=== PATIENT | female | born 1960 | race Hispanic/Latino ===

== ENCOUNTER 2020-03-04 18:33 | Emergency (ER) | payer MEDICAID, MEDICARE ==
[~2020-03-04] VITALS: Ht 165.1 cm; Wt 62.3 kg
[2020-03-04 19:25] LABS: BASO # 0.1 10^3/uL (0.0-0.2); BASO % 0.5 % (0.0-1.0); EOS # 0.1 10^3/uL (0.0-0.5); EOS % 0.8 % (0.0-3.0); HEMOGLOBIN 14.9 g/dl (12.0-15.5); LYMPH # 2.1 10^3/uL (1.5-5.0); LYMPH % 15.9 % (24.0-44.0); MEAN CORPUSCULAR HEMOGLOBIN 31.8 pg (27.0-33.0); MEAN CORPUSCULAR HGB CONC 33.9 g/dl (32.0-36.5); MONO # 0.7 10^3/uL (0.0-0.8); MONO % 5.5 % (0.0-5.0); NEUTROPHILS # 10.1 10^3/uL (1.5-8.5); NEUTROPHILS % 76.8 % (36.0-66.0); PLATELET COUNT, AUTOMATED 203 10^3/uL (150-450); RED BLOOD COUNT 4.68 10^6/uL (4.00-5.40); WHITE BLOOD COUNT 13.2 10^3/uL (4.0-10.0)
[2020-03-04] MEDS ORDERED: ONDANSETRON 4MG/2ML VIAL IV ONE (19:30)
[2020-03-04] MEDS ORDERED: NS 1,000 ML IV ONE (19:30)
[2020-03-04 19:37] LABS: INR 0.92; PROTHROMBIN TIME 12.5 SECONDS (11.8-14.0)
[2020-03-04] MEDS: MORPHINE 4 MG/ML 1ML VIAL/SYRINGE (J2270) IV PRN ×2 (19:40→21:38)
[2020-03-04 19:51] LABS: ALBUMIN 4.3 GM/DL (3.2-5.2); ALT/SGPT 26 U/L (12-78); BILIRUBIN,DIRECT 0.1 MG/DL (0.0-0.2); BILIRUBIN,TOTAL 0.5 MG/DL (0.2-1.0); BLOOD UREA NITROGEN 37 MG/DL (7-18); CARBON DIOXIDE LEVEL 29 MEQ/L (21-32); CHLORIDE LEVEL 103 MEQ/L (98-107); CK-MB VALUE MASS 3.8 NG/ML (<3.6); CPK CREATINE PHOSPHOKINASE 344 U/L (26-192); CREATININE FOR GFR 1.31 MG/DL (0.55-1.30); GLOMERULAR FILTRATION RATE 43.9 (>45); GLUCOSE, FASTING 110 MG/DL (70-100); LIPASE 113 U/L (73-393); POTASSIUM SERUM 3.1 MEQ/L (3.5-5.1); SODIUM LEVEL 136 MEQ/L (136-145); TOTAL PROTEIN 9.6 GM/DL (6.4-8.2); TROPONIN I < 0.02 NG/ML (< 0.10)
[2020-03-04] MEDS ORDERED: PROAAER10 INH (20:20)
[2020-03-04] MEDS ORDERED: ATEN100T PO (20:20)
[2020-03-04] MEDS ORDERED: ISOVUE-370 76% 100ML VIAL As Ordered ONE (20:34)
--- NOTE | 2020-03-04 21:49 | REPVR ---
PROCEDURE INFORMATION: Exam: CT Angiography Chest With Contrast Exam date and time: 03/04/2020 8:59 PM Age: 59 years old Clinical indication: Chest pain; Type not specified; Additional info: Chest/epigastric pain TECHNIQUE: Imaging protocol: Computed tomographic angiography of the chest with intravenous contrast. 3D rendering (Not supervised by radiologist): MIP and/or 3D reconstructed images were created by the technologist. Radiation optimization: All CT scans at this facility use at least one of these dose optimization techniques: automated exposure control; mA and/or kV adjustment per patient size (includes targeted exams where dose is matched to clinical indication); or iterative reconstruction. Contrast material: ISOVUE 370; Contrast volume: 100 ml; Contrast route: INTRAVENOUS (IV); COMPARISON: No relevant prior studies available. FINDINGS: Pulmonary arteries: The main pulmonary artery measures 24 mm. No pulmonary embolism is identified. Aorta: The ascending thoracic aorta measures 31 mm. Lungs: Multiple bilateral pulmonary nodules with some central cavitation in several. Slight interstitial prominence with minimal bilateral lower lobe atelectasis, left greater than right and question of minimal infiltrates. Pleural space: Minimal left pleural effusion. Heart: Unremarkable. No cardiomegaly. No pericardial effusion. Mediastinal space: Status post right mastectomy with infiltration stranding in the right hilum which may reflect prior zoran dissection. Lymph nodes: Unremarkable. No enlarged lymph nodes. Gallbladder and bile ducts: There are multiple small gallstones in the gallbladder. Bones/joints: Unremarkable. No acute fracture. Soft tissues: Unremarkable. IMPRESSION: 1. 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 2. Multiple bilateral pulmonary nodules, some demonstrating central cavitation which are most suspicious for metastatic disease. And inflammatory origin is thought to be less likely. Fleischner follow up recommendations for incidental nodules are not indicated. Follow up per patient's medical condition. 3. Minimal left pleural effusion with minimal bilateral lower lobe atelectasis and question of minimal infiltrates. 4. Cholelithiasis. 5. No pulmonary embolism is identified. Electronically signed by: Jordin Harp On 03/04/2020 21:49:26 PM
--- NOTE | 2020-03-04 21:58 | REPVR ---
PROCEDURE INFORMATION: Exam: CT Abdomen And Pelvis With Contrast Exam date and time: 03/04/2020 8:59 PM Age: 59 years old Clinical indication: Abdominal pain; Epigastric; Additional info: Chest/epigastric pain TECHNIQUE: Imaging protocol: Computed tomography of the abdomen and pelvis with intravenous contrast. Radiation optimization: All CT scans at this facility use at least one of these dose optimization techniques: automated exposure control; mA and/or kV adjustment per patient size (includes targeted exams where dose is matched to clinical indication); or iterative reconstruction. Contrast material: ISOVUE 370; Contrast volume: 100 ml; Contrast route: INTRAVENOUS (IV); COMPARISON: No relevant prior studies available. FINDINGS: Lungs: Multiple bibasilar pulmonary nodules with several demonstrating central cavitation. Minimal bilateral lower lobe atelectasis and question of minimal infiltrates. Pleural space: Minimal left pleural effusion. Liver: Heterogeneous liver with suggestion of multiple focal enhancing lesions which are suspicious for metastatic disease. Gallbladder and bile ducts: Small gallstones in the gallbladder. Pancreas: Normal. No ductal dilation. Spleen: Normal. No splenomegaly. Adrenals: Normal. No mass. Kidneys and ureters: Normal. No hydronephrosis. Stomach and bowel: Question of gastric antral wall thickening which may be related to incomplete distention. Minimal sigmoid diverticulosis without diverticulitis. Appendix: A normal appendix is seen. Intraperitoneal space: Unremarkable. No free air. No significant fluid collection. Vasculature: Unremarkable. No abdominal aortic aneurysm. Lymph nodes: Unremarkable. No enlarged lymph nodes. Bladder: Unremarkable as visualized. Reproductive: Multiple uterine calcifications consistent with fibroids. Bones/joints: Mottled sclerosis with areas of lucency involving the L4 and to a lesser degree L3 and possibly S1 segments which may reflect osteoblastic metastasis. There is some mottled lucency at the base of the spinous process of L4. Schmorl's defect adjacent to the inferior endplate of T12 although early metastasis is not excluded. Soft tissues: Unremarkable. IMPRESSION: 1. Multiple bibasilar pulmonary nodules with several demonstrating central cavitation which are suspicious for metastatic disease. Fleischner follow up recommendations for incidental nodules are not indicated. Follow up per patient's medical condition. 2. Heterogeneous enhancement of the liver with suggestion of multiple focal lesions which are suspicious for metastatic disease. 3. Cholelithiasis. 4. Evidence of metastatic disease involving the L4 segment including posterior elements. There is question of early involvement of L3 and possibly T12 and S1. 5. Question of antral gastritis. 6. Minimal sigmoid diverticulosis without diverticulitis. Electronically signed by: Jordin Harp On 03/04/2020 21:59:01 PM
[2020-03-04] MEDS ORDERED: atenoloL 50 MG TAB As Ordered ONE (22:40)
[2020-03-04 22:44] VITALS: BP 179/104
[2020-03-04] MEDS ORDERED: atenoloL 50 MG TAB PO ONE (22:45)
[2020-03-04] MEDS ORDERED: PANTOPRAZOLE 40MG VIAL (C9113 PER 1) IV ONE (23:15)
[2020-03-04] MEDS ORDERED: OXYCODONE/APAP 5MG/325MG(BULK FOR ED) 1 TABLET PO ONE (23:15)
[2020-03-04 23:35] VITALS: BP 164/88
[2020-03-12] MEDS ORDERED: PANT40TA29 PO (09:37)
[2020-03-12] MEDS ORDERED: TRIU1TAB PO (09:37)
[2020-03-26] MEDS ORDERED: TIZA4TAB4 PO (09:18)
--- NOTE | 2020-03-31 09:34 | ECGEPIP ---
[facility] - ED Test Date: 2020-03-04 Pat Name: JUNE GATES Department: Room: - Gender: Female [employer]: aram : 1960 Requested By: JOSE Christian Order Number: [id number] Reading MD: Rosa Fry Measurements Intervals Heath Rate: 65 P: 55 VT: 188 QRS: 19 QRSD: 93 T: 52 QT: 446 QTc: 465 Interpretive Statements SINUS RHYTHM WITH SINUS ARRHYTHMIA LEFT ATRIAL ENLARGEMENT POSSIBLE LEFT VENTRICULAR HYPERTROPHY POSSIBLE SEPTAL MYOCARDIAL INFARCTION, OF INDETERMINATE AGE ABNORMAL ECG SEE DOWNTIME SCANNED RECORD
[2020-04-16] MEDS ORDERED: LETR2.5T2 PO (15:39)
== END 2020-03-04 23:36 | disposition home or self-care (01) ==
LOC: M ED 18:33
DX: K29.70 Gastritis, unspecified, without bleeding (principal); C79.51 Secondary malignant neoplasm of bone; R91.1 Solitary pulmonary nodule; K76.9 Liver disease, unspecified; K57.32 Diverticulitis of large intestine without perforation or abscess without bleeding; I10 Essential (primary) hypertension; B20 Human immunodeficiency virus [HIV] disease; Z86.19 Personal history of other infectious and parasitic diseases
CPT/HCPCS: 71275; 74177; 80048; 80076; 82550; 82553; 83605; 83690; 84484; 85025; 85610; 93005; 93041; 94760; 96361; 96374; 96375; 96376; 99284; C9113; J2270; J2405; Q9967

== ENCOUNTER → 2020-03-23 | Outpatient (CLI) | payer MEDICAID ==
[~2020-03-23] MED LIST: ATEN100T PO; LETR2.5T2 PO; PANT40TA29 PO; PROAAER10 INH; TIZA4TAB4 PO; TRIU1TAB PO
--- NOTE | 2020-04-14 09:47 | REP ---
LIMITED ABDOMINAL ULTRASOUND CLINICAL: Possible hepatic lesions for biopsy. COMPARISON: CT dated 03/04/2020. TECHNIQUE: Real-time eugene scale ultrasound examination using high frequency transducer. FINDINGS: Ultrasound examination demonstrates coarsened diffusely heterogeneous hepatic echotexture without discernable lesion by ultrasound. Biopsy could not be performed of any discrete lesion. IMPRESSION: Liver demonstrates diffusely coarsened echotexture suggesting underlying hepatocellular disease. No obvious focal hepatic lesion for biopsy identified. Biopsy not performed. MTDD
== END ==
LOC: M IRPRO 09:36
PROVIDERS: ATTEND Specialist
DX: K76.9 Liver disease, unspecified (principal); Z53.8 Procedure and treatment not carried out for other reasons

== ENCOUNTER → 2020-03-26 | Outpatient (CLI) | payer MEDICAID ==
[~2020-03-26] MED LIST changes: +ACETAMINOPHEN 325 MG TAB As Ordered ONE; +LIDOCAINE 1% MDV 20ML VIAL As Ordered ONE
[2020-03-26 12:35] VITALS: BP 160/91
--- NOTE | 2020-04-16 08:33 | REP ---
CT GUIDED RIGHT LOWER LOBE LUNG BIOPSY The procedure was performed under the direct supervision of Dr. Crawford. The patient has a history of multiple bilateral pulmonary nodules seen on a previous CT scan dated 03/04/2020. A nodule in the right lower lobe was selected for biopsy. The risks and benefits of the procedure were explained to the patient and informed consent was obtained through an surgical instrument mechanic. The right lower lobe lung nodule was localized using CT guidance. The skin was prepped and draped in a sterile fashion. 1% Lidocaine was used as a local anesthetic. Using CT guidance, a 19-20 gauge co-axial needle biopsy system was inserted and advanced into the nodule. Five core biopsy samples were obtained and sent to the lab. The patient tolerated the procedure well and there were no immediate complications. After the appropriate amount of monitored convalescence, the patient was discharged from the department. ALINE
== END ==
LOC: M IRPRO 08:45
PROVIDERS: ATTEND Specialist
DX: C78.00 Secondary malignant neoplasm of unspecified lung (principal); R91.8 Other nonspecific abnormal finding of lung field; Z85.3 Personal history of malignant neoplasm of breast

== ENCOUNTER → 2020-04-09 | Outpatient (CLI) | payer MEDICAID ==
[~2020-04-09] MED LIST changes: -ACETAMINOPHEN 325 MG TAB As Ordered ONE; -LIDOCAINE 1% MDV 20ML VIAL As Ordered ONE
--- NOTE | 2020-04-12 07:11 | ECHO ---
DATE OF PROCEDURE: 04/09/2020 Age: 59 Gender: Female Height: 65 inches Weight: 142 pounds Body surface area: 1.71 m2 PATIENT LOCATION: Outpatient. REFERRING PHYSICIAN: Hernesto De La Vega MD INDICATION: Potentially cardiotoxic chemotherapy. MEASUREMENTS: 2D Measurements: RV 2.8 cm LV 4.0 cm Septum 1.1 cm Posterior wall 1.0 cm Aortic Root 2.8 cm LA 3.0 cm LVEF 65% Doppler Measurements: AV 1.52 m/s LVOT 0.96 m/s LVOT diameter 1.8 cm MV-E 52, A 104, E/A ratio 0.5 Early mitral deceleration time 320 m/s E prime medial 4.6, A prime medial 8, E prime lateral 5.3 Average E/E prime ratio 10.5/PCWP 14.9 mmHg PV 0.7 m/s Pulmonary artery acceleration time 128 m/s RVSP 30 mmHg IVC 1.6 cm COMMENTS: Normal sinus rhythm/sinus bradycardia without intraventricular conduction disturbance. M-mode and two-dimensional echocardiography was performed with pulsed, continuous wave, color flow, and tissue Doppler studies. Normal left ventricular size, wall thickness, and wall motion. Normal left atrial size with grade 1 left ventricular (LV) diastolic dysfunction, but currently normal estimated mean left atrial pressure. Normal right heart chamber sizes and motion with Doppler evidence of borderline pulmonary hypertension. Normal inferior vena cava (IVC) size and collapse against an elevated central venous pressure. Normal aortic dimensions. Moderate aortic valvular sclerosis without stenosis, but moderate insufficiency. Mild degenerative changes of the mitral valvular apparatus without inflow tract obstruction and only trace insufficiency. Normal appearing tricuspid valve with very mild insufficiency. No apparent intracardiac mass or pericardial effusion. MTDD
== END ==
LOC: M CARPUL 08:18
PROVIDERS: ATTEND Internal Medicine Hematology & Oncology
DX: C34.90 Malignant neoplasm of unspecified part of unspecified bronchus or lung (principal)

== ENCOUNTER 2020-06-06 19:08 | Emergency (ER) | payer MEDICAID ==
[~2020-06-06] VITALS: Ht 165.1 cm; Wt 63.3 kg
[2020-06-06] MEDS ORDERED: MORPHINE 4 MG/ML 1ML VIAL/SYRINGE (J2270) IV ONE (20:30)
[2020-06-06] MEDS ORDERED: ONDANSETRON 4MG/2ML VIAL IV ONE (20:30)
[2020-06-06 20:51] LABS: BASO % 0.3 % (0.0-1.0); EOS # 0.1 10^3/uL (0.0-0.5); EOS % 0.6 % (0.0-3.0); HEMATOCRIT 36.5 % (36.0-47.0); HEMOGLOBIN 12.1 g/dl (12.0-15.5); LYMPH # 2.3 10^3/uL (1.5-5.0); MEAN CORPUSCULAR HEMOGLOBIN 30.6 pg (27.0-33.0); MEAN CORPUSCULAR HGB CONC 33.2 g/dl (32.0-36.5); MEAN CORPUSCULAR VOLUME 92.4 fl (80.0-96.0); MONO # 1.3 10^3/uL (0.0-0.8); MONO % 11.5 % (0.0-5.0); NEUTROPHILS # 7.7 10^3/uL (1.5-8.5); NEUTROPHILS % 67.3 % (36.0-66.0); PLATELET COUNT, AUTOMATED 225 10^3/uL (150-450); RED BLOOD COUNT 3.95 10^6/uL (4.00-5.40); WHITE BLOOD COUNT 11.5 10^3/uL (4.0-10.0)
[2020-06-06 21:18] LABS: ALBUMIN 3.6 GM/DL (3.2-5.2); BILIRUBIN,DIRECT 0.2 MG/DL (0.0-0.2); BILIRUBIN,TOTAL 0.6 MG/DL (0.2-1.0); CREATININE FOR GFR 1.37 MG/DL (0.55-1.30); GLOMERULAR FILTRATION RATE 41.7 (>45); TOTAL PROTEIN 8.5 GM/DL (6.4-8.2)
--- NOTE | 2020-06-06 21:48 | REPVR ---
PROCEDURE INFORMATION: Exam: CT Head Without Contrast Exam date and time: 06/06/2020 9:15 PM Age: 59 years old Clinical indication: Pain; Headache; Additional info: AMS TECHNIQUE: Imaging protocol: Computed tomography of the head without contrast. Radiation optimization: All CT scans at this facility use at least one of these dose optimization techniques: automated exposure control; mA and/or kV adjustment per patient size (includes targeted exams where dose is matched to clinical indication); or iterative reconstruction. COMPARISON: No relevant prior studies available. FINDINGS: Brain: Small nodular density is noted in a a left anterior parietal sulcus (image 21, series 201). Generalized cerebral volume loss and changes of chronic white matter microvascular disease. No signs of a recent infarction. No mass effect or midline shift. Cerebral ventricles: No ventriculomegaly. Bones/joints: Unremarkable. No acute fracture. Paranasal sinuses: Visualized sinuses are unremarkable. No fluid levels. Mastoid air cells: Visualized mastoid air cells are well aerated. Soft tissues: Unremarkable. IMPRESSION: 1. Possible small subarachnoid hemorrhage versus sulcal calcification in the superior left parietal lobe. Short-term follow-up is recommended. 2. Atrophy and chronic white matter changes. Electronically signed by: Nolberto Caro On 06/06/2020 21:48:26 PM
--- NOTE | 2020-06-06 21:49 | REPVR ---
PROCEDURE INFORMATION: Exam: XR Right Hip with Pelvis when Performed Exam date and time: 06/06/2020 9:17 PM Age: 59 years old Clinical indication: Hip pain; Right hip; Additional info: R hip pain TECHNIQUE: Imaging protocol: XR Right hip with pelvis when performed. Views: 2 or 3 views. COMPARISON: CT ABD/PEL W/IV CONTRAST ONLY 03/04/2020 8:44 PM FINDINGS: Bones/joints: Degenerative changes in the lumbar spine and pelvis. Right greater than left degenerative joint space narrowing in the hips. No acute fracture or malalignment. Soft tissues: Unremarkable. IMPRESSION: 1. Right greater than left hip osteoarthritis. The degenerative changes in the spine and pelvis. 2. No fracture or malalignment. Electronically signed by: Nolberto Caro On 06/06/2020 21:50:02 PM
--- NOTE | 2020-06-06 21:51 | REPVR ---
PROCEDURE INFORMATION: Exam: XR Right Femur Exam date and time: 06/06/2020 9:17 PM Age: 59 years old Clinical indication: Pain; Thigh; Right TECHNIQUE: Imaging protocol: XR Right femur. Views: 2 views. COMPARISON: No relevant prior studies available. FINDINGS: Bones/joints: Joint spaces are normal. No fracture or malalignment. Soft tissues: Unremarkable. IMPRESSION: No fracture or malalignment. Electronically signed by: Nolberto Caro On 06/06/2020 21:51:24 PM
--- NOTE | 2020-06-06 21:52 | REPVR ---
PROCEDURE INFORMATION: Exam: XR Right Tibia and Fibula Exam date and time: 06/06/2020 9:17 PM Age: 59 years old Clinical indication: Pain; Lower leg; Right TECHNIQUE: Imaging protocol: XR Right tibia and fibula. Views: 2 views. COMPARISON: No relevant prior studies available. FINDINGS: Bones/joints: Joint spaces are normal. No fracture or malalignment. Soft tissues: Normal. IMPRESSION: No fracture or malalignment. Electronically signed by: Nolberto Caro On 06/06/2020 21:52:17 PM
--- NOTE | 2020-06-06 21:56 | REPVR ---
PROCEDURE INFORMATION: Exam: XR Lumbosacral Spine, 4 or 5 Views Exam date and time: 06/06/2020 9:17 PM Age: 59 years old Clinical indication: Low back pain TECHNIQUE: Imaging protocol: XR of the lumbosacral spine, 4 or 5 views. COMPARISON: CT ABD/PEL W/IV CONTRAST ONLY 03/04/2020 8:44 PM FINDINGS: Bones/joints: Advanced degenerative changes in the spine and pelvis. Mild osteoarthritis in the hips. Multilevel facet DJD. Generalized sclerosis in the L4 vertebral body and posterior elements and S1 appear similar to the prior abdominal CT. No new sclerotic or destructive bone lesions. There is cortical regularity along the anterior surface of the S1 sacral segment without a discrete fracture lucency. Small endplate Schmorl's nodes in the spine are noted. No other fracture or malalignment. Soft tissues: Unremarkable. IMPRESSION: 1. Stable appearance of metastatic disease at L4 and S1. 2. Possible fracture of the sacral S1 segment. No other fracture or malalignment. 3. Advanced degenerative changes as above. Electronically signed by: Nolberto Caro On 06/06/2020 21:56:18 PM
[2020-06-06] MEDS ORDERED: POTASSIUM CHLORIDE 10 MEQ SR TABLET PO ONE (22:30)
[2020-06-06] MEDS ORDERED: KCL 10MEQ/100ML SWI (KRUN) 10 MEQ in IV 1 EA IV ONE ×2 (22:30→22:45)
--- NOTE | 2020-06-06 22:47 | REPVR ---
PROCEDURE INFORMATION: Exam: CT Cervical Spine Without Contrast Exam date and time: 06/06/2020 10:31 PM Age: 59 years old Clinical indication: Pain; Cervicalgia; Additional info: Head injury TECHNIQUE: Imaging protocol: Computed tomography images of the cervical spine without contrast. Radiation optimization: All CT scans at this facility use at least one of these dose optimization techniques: automated exposure control; mA and/or kV adjustment per patient size (includes targeted exams where dose is matched to clinical indication); or iterative reconstruction. COMPARISON: No relevant prior studies available. FINDINGS: Bones/joints: Normal alignment. No acute fracture. Discs/Spinal canal/Neural foramina: Severe disc degeneration with large posterior disc bulges causing spinal stenosis at C5-C6 and C6-C7. Milder discogenic degenerative changes at other levels. Multilevel facet DJD with facet ankylosis in the upper cervical spine. Multilevel foraminal stenosis, worst at C5-C6 and C6-C7. Soft tissues: Unremarkable. Lungs: Lung apices are normal. IMPRESSION: 1. No fracture or malalignment. 2. Advanced degenerative spondylosis as above. Electronically signed by: Nolberto Caro On 06/06/2020 22:47:35 PM
[2020-06-06 23:32] VITALS: BP 147/84
== END 2020-06-06 23:34 | disposition short-term general hospital (02) ==
LOC: M ED 19:08
DX: S06.300A Unspecified focal traumatic brain injury without loss of consciousness, initial encounter (principal); C78.7 Secondary malignant neoplasm of liver and intrahepatic bile duct; C78.00 Secondary malignant neoplasm of unspecified lung; C79.51 Secondary malignant neoplasm of bone; W22.01XA Walked into wall, initial encounter; Y92.098 Other place in other non-institutional residence as the place of occurrence of the external cause; Y99.8 Other external cause status; M79.604 Pain in right leg; C50.919 Malignant neoplasm of unspecified site of unspecified female breast; I10 Essential (primary) hypertension; K21.9 Gastro-esophageal reflux disease without esophagitis; B19.20 Unspecified viral hepatitis C without hepatic coma; B20 Human immunodeficiency virus [HIV] disease; Z90.11 Acquired absence of right breast and nipple; Z87.891 Personal history of nicotine dependence
CPT/HCPCS: 70450; 72110; 72125; 73502; 73552; 73590; 80048; 80076; 81001; 83690; 85025; 87086; 96374; 96375; 99285; J2270; J2405

== ENCOUNTER → 2020-06-23 | Outpatient (CLI) | payer MEDICAID ==
[~2020-06-23] MED LIST changes: +HYDR50TAB; +LETR2.5T2; +LIDOCAIN; +LIDOCAINE 1% MDV 20ML VIAL As Ordered ONE; +MIDAZOLAM INJ 2MG/2ML VIAL (J2250 PER 1MG) As Ordered ONE; +PERC5TAB12 PO; +PROMETHAZINE INJ 25 MG/ML VIAL (J2550) As Ordered ONE; +ceFAZolin 1GM VIAL (J0690 PER 500MG) As Ordered ONE; +diphenhydrAMINE 50MG/ML VIAL (J1200) As Ordered ONE; +fentaNYL 100 MCG/2 ML INJECTION (J3010) As Ordered ONE
--- NOTE | 2020-06-23 12:12 | IRHP ---
[facility] IR Pre-Procedure H & P General Date of Service: Jun 23, 2020 Procedure: Same Day Surgery Interval History and Physical I have seen the patient and reviewed last H & P performed within 30 days. There is no significant interval change. History of Present Illness Chief Complaint The patient is a 59-year-old female admitted with a reason for visit of Breast Cancer. PRE-PROCEDURE DIAGNOSIS: right sided breast cancer HEART: normal rate. LUNGS: normal breathing at rest. ASA Classification ASA Classification: III-Severe systemic dis. Mallampati Score: II NPO: Yes Problems with prior sedation: No Obstructive Sleep Apnea: No Plan moderate sedation Allergies Coded Allergies: No Known Allergies (Unverified , 03/04/20) Home Medications Scheduled Abacavir/Dolutegravir/Lamivudi (Triumeq 600-50-300 mg Tablet), 1 TAB PO DAILY, (Reported) Atenolol (Atenolol), 100 MG PO BID, (Reported) Scheduled PRN Albuterol Sulfate (Proair Hfa), 2 PUFF INH QID PRN for SHORTNESS OF BREATH, (Reported) Tizanidine HCl (Tizanidine HCl), 4 MG PO TID PRN for MUSCLE SPASMS, (Reported) VELIA ALFORD MD Jun 23, 2020 12:12
[2020-06-23 15:15] VITALS: BP 159/90
--- NOTE | 2020-06-24 11:07 | POST-OPPD ---
Postoperative Procedure Note Date Of Procedure: Jun 23, 2020 Time Of Procedure: 16:00 IR ultrasound and fluoroscopy guided port placement IR Ultrasound of the neck. IR Moderate sedation. Clinical indication: Right-sided breast cancer. Physician: Dr. Sierra. Procedure: The patient was advised of the benefits, risks, and alternatives of the procedure and informed consent was obtained. A time-out was performed with verification of the patient's name, MRN, site of procedure and type of procedure to be performed. The patient was positioned in the supine position on the angiographic table. The site was prepped and draped in the usual sterile fashion. Moderate sedation was performed by the physician including the presence of an independent trained RN who assisted and monitored the patient's level of consciousness and physiologic status. Following the administration of fentanyl and Versed , the physician spent 45 minutes of continuous face to face time with the patient. Ultrasound of the neck reveals a patent and compressible left internal jugular vein. A system programmer radiograph reveals hilar fullness. The neck and anterior chest wall were anesthetized with lidocaine. The left internal jugular vein was accessed using a microintroducer needle under ultrasound guidance, via a lateral approach. An 018 wire was advanced into the superior vena cava, the needle was removed and a microsheath was placed. An Amplatz wire was then passed into the inferior vena cava. An incision at the internal jugular vein access site and anterior chest wall were made using a scalpel. An incision was made at the anterior chest wall. A small pocket was created using a combination of blunt and sharp dissection. A tunneling device was then used to pass the catheter from the pocket to the neck puncture site. An 8- [employer] Smart power port was then positioned in the pocket. The catheter was then measured and cut. The introducer sheath was exchanged for a peel-away sheath. The catheter was passed through the peel-away sheath into the internal jugular vein and the peel-away sheath was removed. The port tip was positioned at the right atrium. The port was then accessed with a Nathan needle. The port flushes and aspirates well. The puncture site in the neck was closed. The chest wall incision was then closed with 2-0 Vicryl and 4-0 Monocryl. Glue and Steri- Strips were applied. A sterile dressing was then applied. The patient tolerated the procedure well and was returned to the PRU in stable condition. Estimated blood loss: <5 ml. Complications: None. Conclusion: 1. Successful placement of an 8-[employer] Smart power port via the left internal jugular vein. The port is ready for immediate use. 2. Patient to follow up in IR clinic in 2 weeks. Thank you for this referral. VELIA SIERRA MD Jun 24, 2020 11:06
== END ==
LOC: M IRPRO 11:45
PROVIDERS: ATTEND Radiology Diagnostic Radiology
DX: C50.911 Malignant neoplasm of unspecified site of right female breast (principal); Z79.899 Other long term (current) drug therapy
CPT/HCPCS: 36561; 99152; 99153; C1769; C1788; C1894; J0690; J1642; J1644; J2250; J3010

== ENCOUNTER 2020-07-03 08:35 | Observation (INO) | payer MEDICAID ==
[~2020-07-03] VITALS: Ht 162.6 cm; Wt 62.3 kg
[~2020-07-03 08:35] MED LIST changes: +DEXA4TA PO; -HYDR50TAB; +HYDR50TAB PO; -LIDOCAINE 1% MDV 20ML VIAL As Ordered ONE; -MIDAZOLAM INJ 2MG/2ML VIAL (J2250 PER 1MG) As Ordered ONE; +ONDA8TAB10 PO; +OXYC1TAB23 PO; +PROC10TA4 PO; -PROMETHAZINE INJ 25 MG/ML VIAL (J2550) As Ordered ONE; -ceFAZolin 1GM VIAL (J0690 PER 500MG) As Ordered ONE; -diphenhydrAMINE 50MG/ML VIAL (J1200) As Ordered ONE; -fentaNYL 100 MCG/2 ML INJECTION (J3010) As Ordered ONE
[2020-07-03] MEDS: hydroCHLOROthiazide 25 MG TAB PO SCH (09:00)
[2020-07-03] MEDS ORDERED: NS 1,000 ML IV ONE ×2 (09:15→12:00)
[2020-07-03 09:21] LABS: HEMATOCRIT 40.4 % (36.0-47.0); HEMOGLOBIN 13.8 g/dl (12.0-15.5); MEAN CORPUSCULAR HEMOGLOBIN 31.2 pg (27.0-33.0); MEAN CORPUSCULAR HGB CONC 34.2 g/dl (32.0-36.5); MEAN CORPUSCULAR VOLUME 91.4 fl (80.0-96.0); PLATELET COUNT, AUTOMATED 157 10^3/uL (150-450); RED BLOOD COUNT 4.42 10^6/uL (4.00-5.40); WHITE BLOOD COUNT 9.3 10^3/uL (4.0-10.0)
[2020-07-03] MEDS ORDERED: ONDANSETRON 4MG/2ML VIAL IV ONE (09:30)
[2020-07-03 09:47] LABS: INR 0.96; PARTIAL THROMBOPLASTIN TIME 26.5 SECONDS (24.2-38.5)
[2020-07-03 10:00] LABS: RSV AMPLIFICATION NEGATIVE (NEGATIVE)
[2020-07-03] MEDS ORDERED: cefTRIAXone SOD 2 GM in D5W MINI-BAG PLUS 50 ML IV ONE (10:15)
[2020-07-03 10:23] LABS: ATYPICAL LYMPH 5 % (0-5); EOSINOPHILS 3 % (0-3); LYMPHOCYTES 21 % (16-44); METAMYELOCYTES 3 % (0-0); MONOCYTES 6 % (0-5); MYELOCYTES 1 % (0-0); NEUTROPHILS 61 % (28-66)
--- NOTE | 2020-07-03 10:27 | REP ---
INDICATION: right chest pain COMPARISON: 03/26/2020 TECHNIQUE: Portable AP view of the chest FINDINGS: The mediastinum and cardiac silhouette are stable and within normal limits for portable technique. [id number] identified with tip in the right atrium. The lung cummings demonstrate scattered subtle bilateral nodular densities. No focal consolidation. No effusion. No pneumothorax. Skeletal structures are intact. IMPRESSION: Scattered nodule similar to prior examination. No acute consolidation or effusion. <Electronically signed by Joseph Murry > 07/03/20 [id number]
[2020-07-03 10:35] LABS: ALBUMIN 3.6 GM/DL (3.2-5.2); ALT/SGPT 25 U/L (12-78); AMYLASE 61 U/L (25-115); BILIRUBIN,DIRECT 0.2 MG/DL (0.0-0.2); BILIRUBIN,TOTAL 0.8 MG/DL (0.2-1.0); BLOOD UREA NITROGEN 33 MG/DL (7-18); CALCIUM LEVEL 9.2 MG/DL (8.8-10.2); CARBON DIOXIDE LEVEL 29 MEQ/L (21-32); CHLORIDE LEVEL 99 MEQ/L (98-107); CK-MB VALUE MASS 2.1 NG/ML (<3.6); CPK CREATINE PHOSPHOKINASE 55 U/L (26-192); CREATININE FOR GFR 1.16 MG/DL (0.55-1.30); GLOMERULAR FILTRATION RATE 50.6 (>45); GLUCOSE, FASTING 152 MG/DL (70-100); LIPASE 77 U/L (73-393); MB/CK RELATIVE INDEX 3.82 (< OR =4); POTASSIUM SERUM 2.9 MEQ/L (3.5-5.1); SODIUM LEVEL 136 MEQ/L (136-145); TOTAL PROTEIN 8.2 GM/DL (6.4-8.2); TROPONIN I < 0.02 NG/ML (< 0.10)
[2020-07-03 10:36] LABS: PLATELET ESTIMATE NORMAL (NORMAL); TOXIC GRANULATION 1+
[2020-07-03] MEDS ORDERED: KCL 10MEQ/100ML SWI (KRUN) 10 MEQ in IV 1 EA IV ONE (11:00)
[2020-07-03] MEDS ORDERED: ISOVUE-370 76% 100ML VIAL As Ordered ONE (11:04)
--- NOTE | 2020-07-03 11:33 | REP ---
INDICATION: chest pain/abdominal pain/ breast cancer COMPARISON: 03/04/2020 TECHNIQUE: Axial contrast enhanced images from the thoracic inlet to the upper abdomen using pulmonary embolus technique with multiplanar re-formations. 100 ml Isovue 370 intravenous contrast material administered without complication. This CT examination was performed using the following dose reduction techniques: Automated exposure control, adjustment of mA and/or kv according to the patient's size, and use of iterative reconstruction technique. FINDINGS: Satisfactory enhancement of the pulmonary vasculature is achieved and no filling defects are identified to suggest pulmonary embolus. Further evaluation of the mediastinum demonstrates normal thoracic aorta, heart and pericardium. Lung cummings demonstrate innumerable bilateral metastatic lesions measuring up to 15 mm similar to prior examination and trace left pleural reaction. Few mediastinal lymph nodes again noted and similar to prior examination measuring up to approximately 12 mm short axis diameter. Tracheobronchial tree is patent. No pneumothorax. Musculoskeletal structures demonstrate scattered sclerotic areas within multiple vertebral bodies as well as within the proximal aspect of the left clavicle suggesting osseous metastatic lesions. IMPRESSION: 1. No pulmonary embolus. 2. Innumerable bilateral pulmonary metastatic lesions and findings to suggest osseous metastatic lesions as well. <Electronically signed by Joseph Murry > 07/03/20 [id number]
--- NOTE | 2020-07-03 11:40 | REP ---
INDICATION: chest pain/abdominal pain/ breast cancer. COMPARISON: 03/04/2020 TECHNIQUE: Axial contrast-enhanced images from the lung bases to the pubic symphysis using 100 cc Isovue 370 intravenous contrast material. Coronal and sagittal reformations obtained. This CT examination was performed using the following dose reduction techniques: Automated exposure control, adjustment of mA and/or kv according to the patient's size, and the use of iterative reconstruction technique. FINDINGS: Liver demonstrates nodular contour and somewhat irregular areas of enhancement suggesting underlying metastatic disease. Spleen, pancreas, bilateral adrenal glands and kidneys are relatively normal/stable. Cholelithiasis again noted without evidence for acute cholecystitis. There is no evidence for bowel obstruction or obvious acute inflammatory process. Mild fecal stasis along with scattered colonic diverticula noted. Pelvis demonstrates normal bladder and heterogeneous nodular uterus with scattered calcifications suggesting dystrophic myomatous changes similar to prior examination. No pelvic fluid or ascites. No free air. No obvious intraperitoneal or retroperitoneal adenopathy. Atherosclerotic changes to the aorta and vasculature noted without aneurysm or dissection. Skeletal structures demonstrate diffuse scattered sclerotic lesions consistent with osseous metastatic disease which appears progressive when compared to prior examination. Pulmonary metastatic disease. IMPRESSION: 1. Findings suggesting hepatic and osseous metastatic disease. 2. Mild fecal stasis. 3. Chronic nonacute findings including dystrophic myomatous changes to the uterus, cholelithiasis, scattered colonic diverticula. <Electronically signed by Joseph Murry > 07/03/20 [id number]
[2020-07-03] MEDS ORDERED: MOM 30ML SUSPENSION UDC PO PRN (13:00)
[2020-07-03] MEDS ORDERED: ACETAMINOPHEN TAB 650MG DOSE (2X325MG) PO PRN (13:00)
[2020-07-03] MEDS ORDERED: MAALOX 30 ML SUSP *UDC PO PRN (13:00)
--- NOTE | 2020-07-03 13:15 | HPEPDOC ---
[facility] Medical History & Physical Date of Admission Jul 03, 2020 Date of Service: Jul 03, 2020 History and Physical CHIEF COMPLAINT: Nausea HISTORY OF PRESENT ILLNESS: 59-year-old female presents to the ED for intractable nausea and vomiting after chemotherapy 4 days ago. She tells me for the past several days she's had decreased oral intake as she cannot tolerate much food or liquids because she cocci feels like she is nauseated and dry heaving regularly. Tells me that all the dry heaving is giving her chest and abdominal pain every time she has to dry heave but she is not in any pain doing well. She currently denies having any chest pain or shortness of breath she says her abdominal muscles hurt sometimes when she dry heaves but currently they're okay. She does endorse sacral back pain that's been ongoing for a while and she is aware that she has metastatic cancer to that area. Patient has a history of right-sided breast cancer diagnosed in 2015 for which she underwent modified radical mastectomy followed by radiation therapy and 5 years of a questionable tablets most likely tamoxifen but patient is unsure. She is from [place] she's been doing well however in February she developed some epigastric pain and presented to the [facility] ED where she was diagnosed with gastritis however the CT revealed multiple bilateral pulmonary nodules at that time and CT abdomen for/pelvis revealed liver lesions suggestive of metastatic cancer there was also bony spinal involvement around L3. CT angiogo chest done in the ED confirms her metastatic lung disease. CT abdomen/pelvis also reiterates her bony metastasis as well as liver metastasis. Her oncologist in [place] is Dr. Mclean. On review of systems patient endorses dysuria urinalysis in the ED confirms UTI and she was given 1 dose of ceftriaxone PAST MEDICAL HISTORY: right-sided breast cancer 2016 S/P modified radical mastectomy Metastatic cancer to sacral spine and liver COPD Hypertension Gastritis takes Protonix GERD PAST SURGICAL HISTORY: 2 C-sections SOCIAL HISTORY: Denies alcohol use Denies tobacco use currently she quit 4 years ago after her diagnosis of breast cancer but she smoked for 20 years prior to that Denies illicit drug use FAMILY HISTORY: Mother CVA Brother hypertension, lung cancer, disease Sister leukemia, cervical cancer ALLERGIES: Please see below. REVIEW OF SYSTEMS: 10 point review of systems complete all negative otherwise stated in HPI HOME MEDICATIONS: Please see below. PHYSICAL EXAMINATION: Constitutional: Awake and alert, in no apparent distress ENT: Sclera are clear Respiratory: Lungs CTA bilaterally. No respiratory distress. No use of accessory muscles. Cardiovascular: Regular rhythm fast heart rate around 110 Gastrointestinal: Abdomen is soft, non distended, non tender, BS present. Musculoskeletal: No edema. No joint deformities. Mild bony tenderness on palpation over lumbar spine but not the paraspinal muscles. Neurologic: No focal neurological deficit. Mental Status: A&O x3, normal affect Skin: Warm, dry LABORATORY DATA: See below. IMAGING: CT ANGIO CHEST IMPRESSION: 1. No pulmonary embolus. 2. Innumerable bilateral pulmonary metastatic lesions and findings to suggest osseous metastatic lesions as well. CT ABD/PEL W/IV CONTRAST ONLY IMPRESSION: 1. Findings suggesting hepatic and osseous metastatic disease. 2. Mild fecal stasis. 3. Chronic nonacute findings including dystrophic myomatous changes to the uterus, cholelithiasis, scattered colonic diverticula. MICROBIOLOGY: Please see below. ASSESSMENT/PLAN 59-year-old female history of metastatic breast cancer underwent chemotherapy 4 days ago and has been having intractable nausea and vomiting since with decreased oral intake. Admitted for observation for hydration and to control her nausea and vomiting. # Intractable nausea and vomiting: Secondary to recent chemotherapy for metastatic cancer. Reglan schedules. Zofran when necessary. # Dehydration: Secondary to decreased oral intake from nausea and dry heaving. IV fluids. Advance diet as tolerated. # Metastatic breast cancer to the spine and liver: Lidocaine patch on tender spine sacral area. Continue follow up with oncologist Dr. Mclean on discharge # GERD/gastritis: IV PPI while admitted and then oral upon discharge # COPD: Not in exacerbation. Continue home inhalers. # Hypertension: Continue home meds. Monitor and titrate # DVT prophylaxis: Lovenox A Youse[facility] Hospitalist Vital Signs Vital Signs Date Time Temp Pulse Resp B/P (MAP) Pulse Ox O2 Delivery O2 Flow Rate FiO2 07/03/20 10:50 108 20 100 Room Air 07/03/20 10:45 156/72 (100) 07/03/20 08:37 99.7 Laboratory Data Labs 24H Laboratory Tests 2 07/03/20 09:07: Immature Granulocyte % (Auto) , Neutrophils (%) (Auto) , Nucleated Red Blood Cells % (auto) 0.0, Neutrophils 61, Lymphocytes (Manual) 21, Monocytes (Manual) 6H, Eosinophils (Manual) 3, Metamyelocytes 3H, Myelocytes 1H, Atypical Lymphocytes 5, Red Blood Cell Morphology NORMAL, Toxic Granulation 1+, Platelet Estimate NORMAL, Anion Gap 8, Glomerular Filtration Rate 50.6, Calcium Level 9.2, Total Bilirubin 0.8, Direct Bilirubin 0.2, Aspartate Amino Transf (AST/SGOT) 38H, Alanine Aminotransferase (ALT/SGPT) 25, Alkaline Phosphatase 183H, Total Creatine Kinase 55, Creatine Kinase MB 2.1, Creatine Kinase MB Relative Index 3.82, Troponin I < 0.02, Total Protein 8.2, Albumin 3.6, Albumin/Globulin Ratio 0.8L, Amylase Level 61, Lipase 77 07/03/20 09:09: Prothrombin Time 13.0, Prothromb Time International Ratio 0.96, Activated Partial Thromboplast Time 26.5, Lactic Acid Level 2.5*H, Coronavirus (COVID- 19)(PCR) NEGATIVE, Influenza Type A (RT-PCR) NEGATIVE, Influenza Type B (RT-PCR) NEGATIVE, Respiratory Syncytial Virus (PCR) NEGATIVE 07/03/20 09:26: Urine Color DK YELLOW, Urine Appearance CLOUDYH, Urine pH 6.0, Urine Specific Hines 1.026, Urine Protein 1+H, Urine Glucose (UA) NEGATIVE, Urine Ketones NEGATIVE, Urine Blood 1+H, Urine Nitrite NEGATIVE, Urine Bilirubin NEGATIVE, Urine Urobilinogen 2.0H, Urine Leukocyte Esterase 3+H, Urine WBC (Auto) TNTCH, Urine RBC (Auto) 16H, Urine Hyaline Casts (Auto) 0, Urine Bacteria (Auto) 1+H, Urine Squamous Epithelial Cells 1, Urine Transitional Epithelial Cells 2, Urine Amorphous Sediment SMALLH, Urine Sperm (Auto) CBC/BMP Laboratory Tests 07/03/20 09:07 Microbiology Microbiology 07/03/20 Blood Culture, Received Pending 07/03/20 Blood Culture, Received Pending 07/03/20 Urine Culture, Received Pending Home Medications Scheduled Abacavir/Dolutegravir/Lamivudi (Triumeq 600-50-300 mg Tablet) 1 Each Tablet, 1 TAB PO DAILY Amlodipine Besylate (Amlodipine Besylate) 5 Mg Tablet, 5 MG PO DAILY Dexamethasone (Dexamethasone) 4 Mg Tablet, 2 TAB PO BID Take 2 tablets by mouth twice a day on the day before, the day of and the day after chemotherapy. Docusate Sodium (Dok) 100 Mg Capsule, 100 MG PO DAILY Don't take if you are having any loose stools Hydrochlorothiazide (Hydrochlorothiazide) 50 Mg Tablet, 50 MG PO DAILY Hydrochlorothiazide (Hydrochlorothiazide) 25 Mg Tablet, 25 MG PO DAILY Lidocaine (Lidocaine) 5% Adh..patch, 1 PATCH TD DAILY Apple on painful sacral spine area. Apply 12hr remove 12hr. Ondansetron HCl (Ondansetron HCl) 8 Mg Tablet, 1 TAB PO Q8H for nausea/vomiting Pantoprazole Sodium (Protonix) 40 Mg Granpkt.dr, 40 MG PO DAILY Scheduled PRN Albuterol Sulfate (Proair Hfa) 8.5 Gm Hfa.aer.ad, 2 PUFF INH QID PRN for SHORTNESS OF BREATH Oxycodone HCl/Acetaminophen (Oxycodone-Acetaminophen 5-325) 1 Each Tablet, 1 TAB PO QIDP PRN for pain PRN cancer pain Prochlorperazine Maleate (Prochlorperazine Maleate) 10 Mg Tablet, 10 MG PO Q6H PRN for NAUSEA OR VOMITING Allergies Coded Allergies: No Known Allergies (Unverified , 03/04/20) A-FIB/CHADSVASC A-FIB History Current/History of A-Fib/PAF?: No SULMA SOLIMAN MD Jul 03, 2020 13:15
[2020-07-03] MEDS ORDERED: ALBUTEROL 90 MCG/ACT 8GM HFA INHALER INH PRN (14:00)
[2020-07-03] MEDS ORDERED: ONDANSETRON 4MG/2ML VIAL IV PRN (14:00)
[2020-07-03] MEDS ORDERED: PERCOCET 5MG/325MG TAB PO ONE (14:00)
[2020-07-03] MEDS: METOCLOPRAMIDE INJ 10MG/2ML VIAL (J2765 PER 1) IV SCH ×2 (14:29→20:26)
[2020-07-03] MEDS ORDERED: LIDOCAINE 5% (LIDODERM) PATCH TD ONE (14:30)
[2020-07-03] MEDS ORDERED: NS 1,000 ML IV SCH (14:30)
[2020-07-03 15:25] VITALS: BP 134/84
[2020-07-03] MEDS ORDERED: POTASSIUM CHLORIDE 10 MEQ SR TABLET PO ONE (16:00)
[2020-07-03] MEDS: KCL 10MEQ/100ML SWI (KRUN) 10 MEQ in IV 1 EA IV SCH ×3 (16:40→21:55)
[2020-07-03] MEDS: PERCOCET 5MG/325MG TAB PO PRN (18:24)
[2020-07-03] MEDS: PANTOPRAZOLE 40MG VIAL (C9113 PER 1) IV SCH (20:26)
[2020-07-03] MEDS: DOCUSATE SODIUM 100MG CAPSULE PO SCH (20:27)
[2020-07-03] MEDS ORDERED: **NOTE PATIENT COMMENT** MISC XX SCH (21:00)
[2020-07-03] MEDS ORDERED: ENOXAPARIN 40MG/0.4ML SYRINGE (J1650 PER 10MG) SC SCH (21:00)
[2020-07-03 22:00] VITALS: BP 146/81
[2020-07-04] MEDS ORDERED: KCL 10MEQ IN STERILE WATER 100ML As Ordered ONE (00:20)
[2020-07-04] MEDS: KCL 10MEQ/100ML SWI (KRUN) 10 MEQ in IV 1 EA IV SCH (00:23)
[2020-07-04] MEDS: PERCOCET 5MG/325MG TAB PO PRN ×2 (00:23→06:29)
[2020-07-04] MEDS: METOCLOPRAMIDE INJ 10MG/2ML VIAL (J2765 PER 1) IV SCH ×2 (03:29→08:46)
[2020-07-04 06:00] VITALS: BP 151/81
[2020-07-04 08:46] VITALS: BP 151/81
[2020-07-04] MEDS: DOCUSATE SODIUM 100MG CAPSULE PO SCH (08:46)
[2020-07-04] MEDS: hydroCHLOROthiazide 25 MG TAB PO SCH (08:46)
[2020-07-04] MEDS: PANTOPRAZOLE 40MG VIAL (C9113 PER 1) IV SCH (08:46)
[2020-07-04] MEDS ORDERED: LIDOCAINE 5% (LIDODERM) PATCH TD SCH (09:00)
[2020-07-04] MEDS ORDERED: LIDO5TD TD (10:22)
[2020-07-04] MEDS ORDERED: DOK1CAP7 PO (10:22)
[2020-07-04] MEDS ORDERED: HYDR25TAB PO (10:22)
[2020-07-04] MEDS ORDERED: PROTPAK PO (10:22)
[2020-07-04] MEDS ORDERED: AMLO1TAB24 PO (10:22)
--- NOTE | 2020-07-04 10:28 | IPNPDOC ---
Text Note Date of Service The patient was seen on 07/04/20. NOTE Subjective: Patient seen and examined this morning at bedside. Patient tells me that her nausea and vomiting have completely resolved and she feels much better and ready to go home today. There is no acute overnight events. Objective: Constitutional: Awake and alert, in no apparent distress ENT: Sclera are clear Respiratory: Lungs CTA bilaterally. No respiratory distress. No use of accessory muscles. Cardiovascular: Regular rhythm fast heart rate around 110 Gastrointestinal: Abdomen is soft, non distended, non tender, BS present. Musculoskeletal: No edema. No joint deformities. Mild bony tenderness on palpation over lumbar spine but not the paraspinal muscles today better with lidocaine patch. Neurologic: No focal neurological deficit. Mental Status: A&O x3, normal affect Skin: Warm, dry Assessment/plan: 59-year-old female history of metastatic breast cancer underwent chemotherapy 4 days ago and has been having intractable nausea and vomiting since with decreased oral intake. Admitted for observation for hydration and to control her nausea and vomiting. With scheduled Reglan and when necessary Zofran as well as IV Protonix patient's symptoms resolved and she was no longer feeling nauseous or vomiting in the morning. She's been trying to eat and has kept her food down. She tells me she's feeling well enough and wants to go home today. Her heart rate was still a little elevated at 110 she denies any chest pain or palpitations and she tells me she usually runs a little fast. I encouraged her to try to increase her oral fluid hydration at home. I asked her to make sure she follows up with her oncologist Dr. Mclean as well as her primary care doctor within the next 5 days upon discharge. Patient was discharged to home with her daughter in 07/04/2020. # Intractable nausea and vomiting: Secondary to recent chemotherapy for metastatic cancer. Reglan schedules. Zofran when necessary. Completely resolved at time of discharge. # Dehydration: Secondary to decreased oral intake from nausea and dry heaving. IV fluids. Advance diet as tolerated. Has been eating better at time of discharge. # Metastatic breast cancer to the spine and liver: Lidocaine patch on tender spine sacral area. Continue follow up with oncologist Dr. Mclean on discharge # GERD/gastritis: IV PPI while admitted and then oral upon discharge # COPD: Not in exacerbation. Continue home inhalers. # Hypertension: Continue home meds, decrease hydrochlorothiazide dose from 50- >25 times dose of 50 has not been shown to be significantly more beneficial with significantly increased side effects. I added amlodipine 2.5 mg and increase that to 5 mg at time of discharge. Asked the patient follow up with her primary care doctor to monitor and titrate her blood pressure medications. # CBC showing dilution picture at time of discharge form all the IVFs she received. I recommend she repeat her CBC her her PCP within the next 5 days. # DVT prophylaxis: Jose Elias Soliman Hospitalist Iliana LÓPEZ, I+O VSIliana I+O Laboratory Tests 07/03/20 18:23 Vital Signs Date Time Temp Pulse Resp B/P (MAP) Pulse Ox O2 Delivery O2 Flow Rate FiO2 07/04/20 08:46 110 151/81 07/04/20 06:59 16 07/04/20 06:00 98.5 97 Room Air I&O- Last 24 Hours up to 6 AM 07/04/20 05:59 Intake Total 1750 ml Balance 1750 ml SULMA SOLIMAN MD Jul 04, 2020 10:28
[2020-07-04] MEDS ORDERED: POTASSIUM CHLORIDE 10 MEQ SR TABLET PO ONE (11:00)
[2020-07-04 11:29] LABS: HEMATOCRIT 33.6 % (36.0-47.0); MEAN CORPUSCULAR HEMOGLOBIN 30.5 pg (27.0-33.0); MEAN CORPUSCULAR HGB CONC 32.7 g/dl (32.0-36.5); MEAN CORPUSCULAR VOLUME 93.1 fl (80.0-96.0); PLATELET COUNT, AUTOMATED 108 10^3/uL (150-450); RED BLOOD COUNT 3.61 10^6/uL (4.00-5.40); WHITE BLOOD COUNT 7.7 10^3/uL (4.0-10.0)
[2020-07-04 11:59] LABS: BLOOD UREA NITROGEN 15 MG/DL (7-18); CALCIUM LEVEL 8.6 MG/DL (8.8-10.2); CARBON DIOXIDE LEVEL 25 MEQ/L (21-32); CHLORIDE LEVEL 105 MEQ/L (98-107); CREATININE FOR GFR 0.76 MG/DL (0.55-1.30); GLOMERULAR FILTRATION RATE > 60.0 (>45); GLUCOSE, FASTING 85 MG/DL (70-100); POTASSIUM SERUM 3.5 MEQ/L (3.5-5.1); SODIUM LEVEL 139 MEQ/L (136-145)
--- NOTE | 2020-07-04 12:21 | ECGEPIP ---
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
[2020-07-05] MEDS ORDERED: amLODIPine 5 MG TAB PO SCH (09:00)
== END 2020-07-04 13:07 | disposition home or self-care (01) ==
LOC: M ED 08:35 → M ED INP 12:55 → M MS5PR 15:17
PROVIDERS: ADMIT Family Medicine; ATTEND Family Medicine
DX: R11.2 Nausea with vomiting, unspecified (principal); C79.51 Secondary malignant neoplasm of bone; C78.7 Secondary malignant neoplasm of liver and intrahepatic bile duct; Z85.3 Personal history of malignant neoplasm of breast; E86.0 Dehydration; Z79.899 Other long term (current) drug therapy; K21.9 Gastro-esophageal reflux disease without esophagitis; J44.9 Chronic obstructive pulmonary disease, unspecified; I10 Essential (primary) hypertension; Z87.891 Personal history of nicotine dependence
CPT/HCPCS: 36415; 71045; 71275; 74177; 80048; 80076; 81001; 82150; 82550; 82553; 83605; 83690; 84132; 84484; 85007; 85027; 85610; 85730; 86850; 86900; 86901; 87040; 87086; 87631; 93005; 93041; 96361; 96365; 96372; 96375; 96376; 99285; C9113; J0696; J1650; J2405; J2765; Q9967

== ENCOUNTER → 2020-07-20 | Outpatient (POV) | payer MEDICAID ==
[~2020-07-20] MED LIST changes: +AMLO1TAB24 PO; +DOK1CAP7 PO; +HYDR25TAB PO; +LIDO5TD TD; +POTA1TAB14 PO; +PROTPAK PO
--- NOTE | 2020-07-26 12:36 | IRPN ---
[facility] IR Progress Note IR Progress Note DATE: Jul 20, 2020 Patient agreed to this telephone follow-up. Duration of call 5 minutes. FOLLOW-UP: Patient status post port placement. Patient denies any fevers, chills, pain at site or discharge. Patient states port was used without any issues. ON EXAMINATION: No video on patient side. IMPRESSION: Status post port placement, patient doing well. No further follow-up scheduled unless initiated by patient and/or referring provider. Thank you for this referral Allergies Coded Allergies: No Known Allergies (Unverified , 03/04/20) VELIA ALFORD MD Jul 26, 2020 12:36
== END ==
LOC: M TMIRPOV 10:03
PROVIDERS: ATTEND Radiology Diagnostic Radiology
DX: Z45.2 Encounter for adjustment and management of vascular access device (principal)

== ENCOUNTER → 2020-08-26 | Outpatient (CLI) | payer OTHER ==
[~2020-08-26] MED LIST changes: +HYDR-3490 PO; -HYDR25TAB PO; +VITA50005 PO
--- NOTE | 2020-08-27 14:32 | ECHO ---
DATE OF PROCEDURE: 08/26/2020 Age: 60 Gender: Female Height: 65 inches Weight: 133 pounds Body surface area: 1.66 m2 PATIENT LOCATION: Outpatient. REFERRING PHYSICIAN: Renee Jimenez M.D. INDICATION: Receiving potentially cardiotoxic chemotherapy. MEASUREMENTS: 2D Measurements: RV 3.04 cm LV 3.6 cm Septum 1.1 cm Posterior wall 1.1 cm Aortic Root 2.6 cm LA 3.2 cm LVEF 75% Doppler Measurements: AV 1.56 m/s LVOT 1.12 m/s MV-E 60, A 125, E/A ratio 0.45 Early mitral deceleration time 243 msec E prime medial 5.4, A prime medial 8, E prime lateral 9.9 Average E/E prime ratio 7.8/PCWP 11.6 mmHg PV 0.8 m/s Pulmonary artery acceleration time 130 msec RVSP 29 mmHg IVC 1.3 cm Average global longitudinal strain 13.1% COMMENTS: Normal sinus rhythm without intraventricular conduction disturbance. M-mode and two-dimensional echocardiography was performed with pulse, continuous wave, color flow, and tissue Doppler studies. We also performed speckle strain imaging and rendered global longitudinal strain imaging from the four chamber, two chamber, and three chamber apical projections. Normal left ventricular size, wall thickness, and hyperkinetic wall motion. Normal left atrial size with grade 1 LV diastolic dysfunction, but currently normal estimated mean left atrial pressure. Normal right heart chamber sizes and motion with an estimated pulmonary arterial pressure. Normal IVC size and collapse against an elevated central venous pressure. Normal aortic dimensions. Mild aortic valvular sclerosis without stenosis, but mild insufficiency. Normal appearing mitral valve apparatus with trace physiologic insufficiency. Normal appearing tricuspid valve with mild to moderate insufficiency. No apparent intracardiac mass or pericardial effusion. Although average global longitudinal strain was slightly reduced at 13%, this would not be considered significant given the patients excellent global left ventricular systolic function. MTDD
== END ==
LOC: M CARPUL 10:47
PROVIDERS: ATTEND Internal Medicine Medical Oncology
DX: C50.919 Malignant neoplasm of unspecified site of unspecified female breast (principal)

== ENCOUNTER 2020-09-05 16:07 | Observation (INO) | payer OTHER ==
[~2020-09-05] VITALS: Ht 165.1 cm; Wt 61.8 kg
--- OUTSIDE RECORDS SUMMARY | 2020-09-05 16:14 | CCD | Summary of Care ---
Author Author [facility] Address Unknown Phone Unavailable Care Team Providers Care Control Integration Engineer Name Role Phone Pcp, No PCP Unavailable Reason for Visit * Reason Comments ED To ED Transfer Neurologic Problem Encounter Details Care Team Description Date Type Department Haider Merrill MD [address], [place] [id number] Subarachnoid hemorrhage (Primary Dx) 06[facility]07[facility]2020 [facility] [address] [place], [place] [id number] Allergies No Known Allergiesdocumented as of this encounter (statuses as of 06/07/2020) Medications End Date Status Medication Sig Dispensed Refills Start Date Active hydroCHLOROthiazide 50 MG 0 Oral Tablet (HYDRODIURIL) 0 Active Albuterol Sulfate HFA 108 0 (90 Base) MCG/ACT 0 Inhalation Aerosol Solution (PROVENTIL HFA) documented as of this encounter (statuses as of 06/07/2020) Active Problems Not on filedocumented as of this encounter (statuses as of 06/07/2020) Social History Date Tobacco Use Types Packs/Day Years Used Never Smoker Sex Assigned at Date Recorded Not on file Date Recorded COVID-19 Exposure Response 06/07/2020 3:43 AM EST In the last month, have you been in contact with No / Unsure someone who was confirmed or suspected to have Coronavirus / COVID-19? documented as of this encounter Last Filed Vital Signs Reading Time Taken Comments Vital Sign 143/72 06/07/2020 6:48 AM EST Blood Pressure 51 06/07/2020 6:48 AM EST Pulse 36.5 C (97.7 F) 06/07/2020 6:48 AM EST Temperature 16 06/07/2020 6:48 AM EST Respiratory Rate 97% 06/07/2020 6:48 AM EST Oxygen Saturation - - Inhaled Oxygen Concentration - - Weight - - Height - - Body Mass Index documented in this encounter Discharge Instructions * Attachments The following attachments cannot be sent through Care Everywhere.* Blood Thinners (Anticoagulants), Using (Nepali) documented in this encounter ED Notes * Pratima June RN - 06/07/2020 2:16 AM EST Patient ambulated to the bathroom with assist of one. Neurosurgery resident at bedside. * Pratima June RN - 06/07/2020 1:38 AM EST Patient refused any and all monitoring. Patient educated on purpose and continued to refuse. Patient states "there is nothing wrong with my heart" * Azalia Burnett RN - 06/07/2020 1:20 AM EST Urdu speaking only. Sent here form [facility]. S/P fall +SAH Alerted at outside hospital. Alert to self on arrival. Family at bedside for communicati on. documented in this encounter Plan of Treatment Date/Time Name Type Priority Associated Diag noses 06/07/2020 3:[address] Angiography Head Imaging STAT Order Schedule Name Type Priority Associated Diag noses STAT for 1 Occurrences starting 06/07/20 20 until 06/07/2020 CT Head without Contrast Imaging STAT Health Maintenance Due Date Last Done Comments Hepatitis C Screening (B. 1960 [id number]) MMR Vaccines (1 of 1 - 1959 Standard series) Varicella Vaccines (1 of 1959 2 - 2-dose childhood series) Pneumococcal Vaccine: 1964 Pediatrics (0 to 5 Years) and At-Risk Patients (6 to 64 Years) (1 of 3 - PCV13) DTaP,Tdap,and Td Vaccines 1965 (1 - Tdap) HIV Screening 1971 Cervical Cancer Screening 1979 5 years Colon Cancer Screening 10 2008 yrs Zoster Vaccines (1 of 2) 2008 Influenza Vaccine 04/15/2020 Breast Cancer Screening 2 04/12/2022 04/12/2020 years Pneumococcal Vaccine: 65+ 2023 Years (1 of 1 - PPSV23) HIB Vaccines Aged Out No longer eligible based on patient's age to complete this topic Hepatitis A Vaccines Aged Out No longer eligibl e based on patient's age to complete this topic Hepatitis B Vaccines Aged Out No longer eligibl e based on patient's age to complete this topic IPV Vaccines Aged Out No longer eligible based on patient's age to complete this topic documented as of this encounter Procedures Comments Procedure Name Priority Date/Time Associated Diag nosis CT ANGIOGRAPHY HEAD 16940 STAT 06/07/2020 3:24 AM EST Procedure Note - Interface, Received Via [employer] System - 06/07/2020 5:[address] ANGIOGRAPH Y HEAD 01629 CLINICAL INDICATION : Please evaluate for Sinus venous thrombosis . TECHNIQUE : Contiguous axial CT images of the head were acquired from the base of the skull to the vertex without intravenou s contrast administra tion. CT venography of the head was performed following intravenou s administra tion of 75 mL of Omnipaque 350 injected at a rate of 5 cc/sec. Multiple MIP images in axial, coronal, and sagittal planes were then acquired using the source data. 3-D volume rendered images were not available at the time of this dictation. Automated dose lowering techniques and/or adjustment according to patient size were utilized for this examinatio n. COMPARISO N: Outside CT head dated 06/06/2020 . FINDINGS: Non-enhanc ed CT head: There is a punctate hyperdense focus in the left parietal lobe (image 23/32). There are scattered regions of low-attenu ation in the periventri cular and subcortica l white matter, which can be seen with chronic small vessel ischemic disease. The eugene-white matter differenti ation is preserved. Physiologi jeff calcificat ion in the right basal ganglia. The ventricles are normal in size. The basal cisterns are patent. No midline shift or extra-axia l fluid collection s. No evidence of an acute territoria l infarct. No depressed calvarial fracture. Extracrani al soft tissues are normal. The visualized paranasal sinuses and mastoid air cells are clear. CTV Head: The major dural venous sinuses are patent. There is no evidence of dural sinus thrombosis . The intracrani al segments of the vertebral arteries are patent. The distal right vertebral artery is diminutive in appearance . The left vertebral artery is dominant. The intracrani al segments of the internal carotid arteries demonstrat e atheroscle rotic calcificat ions without significan t stenosis or dissection . The intracrani al arteries of the [place] are patent without evidence of large vessel occlusion, arterioven ous malformati on, dissection , or aneurysm. IMPRESSION : 1. Punctate hyperdense focus in the left parietal lobe, concerning for subarachno id hemorrhage . Given difference s in technique, there is no significan t interval change from prior exam. 2. Patent dural venous sinuses without evidence of thrombosis . 3. No large vessel occlusion in the major intracrani al arteries of the [place]. Assessmen t of stenosis of the internal carotid arteries is based on NASCET criteria. The primary team is aware of these findings at the time of dictation. PARTIAL THROMBOPLASTIN Routine 06/07/2020 TIME (PTT) 2:06 AM EST PROTIME INR Routine 06/07/2020 2:06 AM EST CBC AND DIFFERENTIAL Routine 06/07/2020 2:06 AM EST HEPATIC FUNCTION PANEL A STAT 06/07/2020 2:06 AM EST BASIC METABOLIC PANEL STAT 06/07/2020 2:06 AM EST documented in this encounter Results * Partial Thromboplastin Time (PTT) (06/07/2020 2:06 AM EST) PTT 29.4 24.0 - 33.[address] [facility] Clin Pathology Specimen Plasma Performing Organization Address City/State/Zipcode Ph one Number [facility] [address] [place], [place] [address] [facility] [address] [place], [place] [address] Clin Pathology * Protime-INR (06/07/2020 2:06 AM EST) PT Patient 14.2 12.5 - 14.[address] [facility] Clin Pathology Int'l 1.09Comment: Routine intensity JO ANN [place] Normalized oral anticoagulation INR is Med Univ Clin Ratio typically 2.0-3.0. Target INR Patholo gy must be clinically individualized. Specimen Plasma Performing Organization Address [facility]/Count Includes [facility] one Number [facility] [address] [place], [place] [address] [facility] Univ [address] [place], [place] [address] Clin Pathology * Hepatic Function Panel (06/07/2020 2:06 AM EST) Albumin 3.7 3.5 - 5.2 g/dL [facility] PATHOLOGY Bilirubin, 0.6 <1.2 mg/dL [facility] Total CLINICAL PATHOLOGY Bilirubin, 0.2 <0.3 mg/dL [facility] Direct CLINICAL PATHOLOGY Alkaline 239 (H) 35 - 104 U/L [facility] Phosphatase CLINICAL PATHOLOGY AST/SGO 27 <32 U/L [facility] PATHOLOGY ALT/SGP 9 <33 U/L [facility] PATHOLOGY Total Protein 7.7 6.4 - 8.3 g/dL [facility] PATHOLOGY Specimen Plasma Performing Organization Address [facility]/Count Includes [facility] one Number [facility] [address] [place], [place] [address] PATHOLOGY * Basic Metabolic Panel (06/07/2020 2:06 AM EST) Bicarbonate 27 22 - 29 mmol/L [facility] PATHOLOGY Chloride 99 98 - 107 mmol/L [facility] PATHOLOGY Creatinine 1.17 (H) 0.50 - 0.90 mg/dL [facility] PATHOLOGY Glucose 122 70 - 140 mg/dL [facility] PATHOLOGY Potassium 3.1 (L) 3.4 - 5.1 mmol/L [facility] PATHOLOGY Sodium 135 (L) 136 - 145 mmol/L [facility] PATHOLOGY Blood Urea 26 (H) 8 - 23 mg/dL [facility] Nitrogen CLINICAL PATHOLOGY Anion Gap 9 8 - 15 mmol/L [facility] PATHOLOGY Osmolality, Jeff 286 275 - 300 mosm/kg [facility] CLINICAL PATHOLOGY BUN/Cre Ratio 22 [facility] PATHOLOGY Calcium 9.0 8.8 - 10.2 mg/dL [facility] PATHOLOGY GFR Non 49 (L) >60 mL/min/1.73m2 JO ANN [facility] E [employer] 2009 CLINICAL CDK-EPI PATHOLOGY GFR 57 (L) >60 mL/min/1.73m2 [facility] 2009 CLINICAL CKD-EPI PATHOLOGY Specimen Plasma Performing Organization Address City/[facility] Ph one Number [facility] [address] [place], [place] [address] PATHOLOGY * CBC and Differential (06/07/2020 2:06 AM EST) White Blood 8.2 4 - 10 10*3/uL [facility] Univ Clin Pathology Red Blood Cell 3.86 (L) 4.1 - 5.3 10*6/uL [facility] Clin Pathology Hemoglobin 12.2 11.5 - 15.5 g/dL [facility] Clin Pathology Hematocrit 36.1 36 - 45 % [facility] Clin Pathology Mean Cell 93.7 80 - 96 fL [facility] Volume [facility] Univ Clin Pathology Mean Cell 31.7 27 - 33 pg [facility] Univ Clin Pathology Mean Cell Hgb 33.8 32.0 - 36.0 g/dL [facility] Univ Clin Pathology Red Cell Dist 13.2 11.5 - 14.5 % [facility] Width [facility] Univ Clin Pathology Platelet Count 205 150 - 400 10*3/uL [facility] Clin Pathology Differential Automated Diff [facility] Type [facility] Clin Pathology Neutrophil 60 % [facility] Clin Pathology Lymphocyte 27 % [facility] Clin Pathology Monocyte 11 % [facility] Clin Pathology Eosinophil 1 % [facility] Clin Pathology Basophil 1 % [facility] Clin Pathology Abs Neutrophil 4.90 1.8 - 7.0 10*3/uL [facility] Univ Clin Pathology Abs Lymphocyte 2.22 1.2 - 4.0 10*3/uL [facility] Clin Pathology Abs Monocyte 0.92 (H) 0 - 0.8 10*3/uL [facility] Univ Clin Pathology Abs Eosinophil 0.09 0 - 0.5 10*3/uL [facility] Clin Pathology Abs Basophil 0.04 0 - 0.2 10*3/uL [facility] Clin Pathology Nucleated Red 0 0 - 0 /100{WBCs} [facility] Blood Cells [facility] Clin Pathology Specimen EDTA Whole Blood Performing Organization Address City/State/[facility] Ph one Number [facility] [address] [place], [place] [address] [facility] [address] [place], [place] [address] Clin Pathology documented in this encounter Visit Diagnoses Diagnosis Subarachnoid hemorrhage - Primary documented in this encounter Administered Medications Action Date Dose Rate Site Medication Order MAR Action 06/07/2020 4:53 AM EST 650 mg acetaminophen (TYLENOL) tablet 650 mg Given 650 mg, Oral, Once, 06/07/20 at 0500, For 1 dose, Maximum daily dose of acetaminophen is 3,000 mg from all sources in 24 hours., 06/07/2020 3:16 AM EST 100 mLs iohexol (OMNIPAQUE) 350 MG/ML contrast Given injection 100 mL 100 mL, Given by IV, 1 TIME IMAGING, Mo n 06/07/20 at 0330, For 1 dose documented in this encounter
--- OUTSIDE RECORDS SUMMARY | 2020-09-05 16:15 | CCD ---
Author Author [facility] Organization [facility] Address Unknown Phone Unavailable Care Team Providers Care Abatement Worker Name Role Phone Erickson ATKINSON MD Unavailable Unavailable ANDErickson MARY MD Unavailable Unavailable ANDErickson MARY MD Unavailable Unavailable ANDErickson MARY MD Unavailable Unavailable ANDErickson MARY MD Unavailable Unavailable ANDErickson MARY MD Unavailable Unavailable ANDErickson MARY MD Unavailable Unavailable Erickson ATKINSON MD Unavailable Unavailable Elton Gil Unavailable Unavailable Re-disclosure Warning The records that you are about to access may contain information from federally-assisted alcohol or drug abuse programs. If such information is present, then the following federally mandated warning applies: This information has been disclosed to you from records protected by federal confidentiality rules (42 CFR part 2). The federal rules prohibit you from making any further disclosure of this information unless further disclosure is expressly permitted by the written consent of the person to whom it pertains or as otherwise permitted by 42 CFR part 2. A general authorization for the release of medical or other information is NOT sufficient for this purpose. The Federal rules restrict any use of the information to criminally investigate or prosecute any alcohol or drug abuse patient.The records that you are about to access may contain highly sensitive health information, the redisclosure of which is protected by Article 27-F of the [facility] Public Health law. If you continue you may have access to information: Regarding HIV / AIDS; Provided by facilities licensed or operated by the [facility] Office of Mental Health; or Provided by the [facility] Office for People With Developmental Disabilities. If such information is present, then the following [facility] mandated warning applies: This information has been disclosed to you from confidential records which are protected by state law. State law prohibits you from making any further disclosure of this information without the specific written consent of the person to whom it pertains, or as otherwise permitted by law. Any unauthorized further disclosure in violation of state law may result in a fine or care home sentence or both. A general authorization for the release of medical or other information is NOT sufficient authorization for further disc losure. Allergies and Adverse Reactions Type Description Substance Reaction Status Data Source(s ) Drug Class NO KNOWN ALLERGIES NO KNOWN ALLERGIES [facility] Encounters Encounter Providers Location Date Indications Data Source(s ) Emergency Attender: CORIN ATKINSON MD [id number] 05/17 12:00:00 AM EST - 06/07/2020 07:50:00 AM EST Nontraumatic subarachnoid hemorrhage, unspecified [facility] Nontraumatic subarachnoid hemorrhage, un specified Patient discharged. Outpatient 06/06/2020 12:24:00 AM EST LLE pain [facility] LLE pain Outpatient Admitter: Neil Fergusoneferrer: Neil Gil 04/12/2020 12:00:00 AM EDT Solitary pulmonary nodule [facility] Solitary pulmonary nodule Outpatient Admitter: Neil Fergusoneferrer: Neil Gil 03/31/2020 12:00:00 AM EDT - 03/31/2020 11:59:00 PM EDT Malignant neoplasm of unspecified part o f right bronchus or lung [facility] Malignant neoplasm of unspecified part o f right bronchus or lung Outpatient [facility] [id number] 07/24/2019 12:00:00 AM EST - 07/24/2019 12:00:00 AM EST eCW3 ([facility]) Immunizations Vaccine Date Status Description Data Source(s) New in 2011. IIV4 05/11/2020 02:07:00 PM EDT completed eCW3 ([facility]) New in 2011. IIV4 05/11/2020 02:07:00 PM EDT completed eCW3 ([facility]) Medications Medication Brand Name Start Date Product Form Dose Route Admi nistrative Instructions Pharmacy Instructions Status Indications Reaction Description Data Source(s) 4 mg 08/30/2020 12:00:00 AM EST tablet 36 TAKE 2 TABLETS BY MOUTH DIRECTED FOR CHEMOTHERAPY. 2 TABLETS THE DAY PRIOR, THE DAY AFTER, AND THEN 2 DAYS AFTER. TAKE 2 TABLETS BY MOUTH DIRECTED FOR CHEMOTHERAPY. 2 TABLETS THE DAY PRIOR, THE DAY AFTER, AND THEN 2 DAYS AFTER. SOLD: 08/31/2020 [facility] 1,250 mcg (50,000 unit) 08/30/2020 12:00:00 AM EST capsule 4 TAKE 1 CAPSULE BY MOUTH ONCE A WEEK TAKE 1 CAPSULE BY MOUTH ONCE A WEEK SOLD: 08/31/2020 [facility] 5-325 mg 08/30/2020 12:00:00 AM EST tablet 60 TAKE ONE TABLET BY MOUTH TWICE A DAY NEEDED FOR PAIN MAXIMUM DAILY DOSE = 2 TAKE ONE TABLET BY MOUTH TWICE A DAY NEEDED FOR PAIN MAXIMUM DAILY DOSE = 2 SOLD: 08/31/2020 [facility] 25 mg 07/04/2020 12:00:00 AM EST tablet 30 TAKE ONE TABLET BY MOUTH EVERY DAY TAKE ONE TABLET BY MOUTH EVERY DAY SOLD: 07/05/2020 [facility] 5 mg 07/04/2020 12:00:00 AM EST tablet 30 TAKE ONE TABLET BY MOUTH EVERY DAY TAKE ONE TABLET BY MOUTH EVERY DAY SOLD: 07/05/2020 [facility] 100 mg 07/04/2020 12:00:00 AM EST capsule 30 TAKE ONE CAPSULE BY MOUTH EVERY DAY DO NOT TAKE IF HAVING ANY LOOSE STOOLS TAKE ONE CAPSULE BY MOUTH EVERY DAY DO NOT TAKE IF HAVING ANY LOOSE STOOLS SOLD: 07/05/2020 [facility] 5-325 mg 06/30/2020 12:00:00 AM EST tablet 28 TAKE ONE TABLET BY MOUTH FOUR TIMES A DAY NEEDED FOR PAIN, MAXIMUM DAILY DOSE = 4 TAKE ONE TABLET BY MOUTH FOUR TIMES A DAY NEEDED FOR PAIN, MAXIMUM DAILY DOSE = 4 SOLD: 07/01/2020 [facility] 4 mg 06/28/2020 12:00:00 AM EST tablet 24 TAKE TWO TABLETS BY MOUTH TWICE A DAY- THE DAY BEFORE, THE DAY OF AND THE DAY AFTER CHEMOTHERAPY TAKE TWO TABLETS BY MOUTH TWICE A DAY- THE DAY BEFORE, THE DAY OF AND THE DAY AFTER CHEMOTHERAPY SOLD: 06/28/2020 [facility] 10 mg 06/28/2020 12:00:00 AM EST tablet 30 TAKE ONE TABLET BY MOUTH EVERY 6 HOURS NEEDED FOR NAUSEA OR VOMITING TAKE ONE TABLET BY MOUTH EVERY 6 HOURS A S NEEDED FOR NAUSEA OR VOMITING SOLD: 06/28/2020 [facility] 8 mg 06/28/2020 12:00:00 AM EST tablet 12 TAKE ONE TABLET BY MOUTH EVERY 8 HOURS FOR NAUSEA/VOMITING TAKE ONE TABLET BY MOUTH EVERY 8 HOURS F OR NAUSEA/VOMITING SOLD: 06/28/2020 [facility] 5-325 mg 06/27/2020 12:00:00 AM EST tablet 12 TAKE ONE TABLET BY MOUTH EVERY 6 HOURS NEEDED FOR PAIN MAXIMUM DAILY DOSE = 4 TABLETS TAKE ONE TABLET BY MOUTH EVERY 6 HOURS NEEDED FOR PAIN MAXIMUM DAILY DOSE = 4 TABLETS SOLD: 06/27/2020 [facility] Acetaminophen 325 MG Oral Tablet acetaminophen (TYLENO L) tablet 650 mg acetaminophen (TYLENOL) tablet 650 mg 06/07/2020 05:00:00 AM EST 65 0 mg Oral completed 650 mg, Oral, O nce, Sun06/07/20 at 0500, For 1 dose
Maximum daily dose of acetaminophen is 3,000 mg from all sources in 24 hours.
[facility] Medication administered onsite iohexol (OMNIPAQUE) 350 MG/ML contrast injection 100 mL 2805 8 06/07/2020 03:30:00 AM EST 100 mL Given by IV completed 100 mL, Given by IV, 1 TIME IMAGING, Sun06/07/20 at 0330, For 1 dose [facility] Medication administered onsite Hydrochlorothiazide 50 MG Oral Tablet hy droCHLOROthiazide 50 MG Oral Tablet (HYDRODIURIL) hydroCHLOROthiazide 50 MG Oral Tablet (HYDRODIURIL) 12:00:00 AM EDT [facility] Albuterol Sulfate HFA 108 (90 Base) MCG/ ACT Inhalation Aerosol Solution (PROVENTIL HFA) 4591-5033-96 05/11/2020 12:00:00 AM EDT [facility] letrozole 2.5 MG Oral Tablet Letrozole 2.5 MG Letrozole 2.5 MG 05/11/2020 12:00:00 AM EDT 1.0 {tablet} active Le trozole 2.5 MG eCW3 ([facility]) letrozole 2.5 MG Oral Tablet Letrozole 2.5 MG Letrozole 2.5 MG 05/11/2020 12:00:00 AM EDT 1.0 {tablet} active Le trozole 2.5 MG eCW3 ([facility]) 2.5 mg 04/16/2020 12:00:00 AM EDT tablet 30 TAKE ONE TABLET BY MOUTH EVERY DAY TAKE ONE TABLET BY MOUTH EVERY DAY SOLD: 04/19/2020 [facility] 500 mg 04/08/2020 12:00:00 AM EDT tablet 120 TAKE ONE TABLET BY MOUTH EVERY 6 HOURS NEEDED TAKE ONE TABLET BY MOUTH EVERY 6 HOURS NEEDED SOLD: 04/09/2020 [facility] pantoprazole 40 MG Delayed Release Oral Tablet PANTOPRAZOLE SODIUM 03/05/2020 12:00:00 AM EDT tablet,delayed release (DR/EC) 30 T TYRONE ONE TABLET BY MOUTH EVERY DAY TAKE ONE TABLET BY MOUTH EVERY DAY SOLD: 03/05/2020 [facility] 100 mg 02/02/2020 12:00:00 AM EDT tablet 60 TAKE ONE TABLET BY MOUTH TWICE A DAY TAKE ONE TABLET BY MOUTH TWICE A DAY SOLD: 02/02/2020 [facility] 90 mcg/actuation 02/02/2020 12:00:00 AM EDT HFA aerosol inha ler 18 INHALE 2 PUFFS BY MOUTH EVERY 6 HOURS NEEDED INHALE 2 PUFFS BY MOUTH EVERY 6 HOURS NEEDED SOLD: 02/02/2020 [facility] 600-50-300 mg 02/02/2020 12:00:00 AM EDT tablet 30 TAKE ONE TABLET BY MOUTH EVERY DAY TAKE ONE TABLET BY MOUTH EVERY DAY SOLD: 03/05/2020 [facility] 600-50-300 mg 02/02/2020 12:00:00 AM EDT tablet 30 TAKE ONE TABLET BY MOUTH EVERY DAY TAKE ONE TABLET BY MOUTH EVERY DAY SOLD: 04/09/2020 [facility] 600-50-300 mg 02/02/2020 12:00:00 AM EDT tablet 30 TAKE ONE TABLET BY MOUTH EVERY DAY TAKE ONE TABLET BY MOUTH EVERY DAY SOLD: 02/02/2020 [facility] Atenolol 100 MG Oral Tablet ATENOLOL 02/02/2020 12:00:00 AM EDT table t 60 TAKE ONE TABLET BY MOUTH TWICE A DAY TAKE ONE TABLET BY MOUTH TWICE A DAY SOLD: 04/09/2020 [facility] Acetaminophen 500 MG Oral Tablet Acetaminophen 500 MG 2019 12:00:00 AM EDT 1.0 {tablet_as_needed} active A cetaminophen 500 MG eCW3 ([facility]) Acetaminophen 500 MG Oral Tablet Acetaminophen 500 MG 2019 12:00:00 AM EDT 1.0 {tablet_as_needed} active A cetaminophen 500 MG eCW3 ([facility]) Blood Pressure Monitor - Blood Pressure Monitor - 12/31/2019 12:00: 00 AM EDT active Blood Pressure Monitor - eCW3 ([facility]) Blood Pressure Monitor - Blood Pressure Monitor - 12/31/2019 12:00: 00 AM EDT active Blood Pressure Monitor - eCW3 ([facility]) Acetaminophen 500 MG Oral Tablet Acetaminophen 500 MG 2019 12:00:00 AM EDT 1.0 {tablet_as_needed} active A cetaminophen 500 MG eCW3 ([facility]) Blood Pressure Monitor - Blood Pressure Monitor - 12/31/2019 12:00: 00 AM EDT active Blood Pressure Monitor - eCW3 ([facility]) Acetaminophen 500 MG Oral Tablet Acetaminophen 500 MG 2019 12:00:00 AM EDT 1.0 {tablet_as_needed} active A cetaminophen 500 MG eCW3 ([facility]) Blood Pressure Monitor - Blood Pressure Monitor - 12/31/2019 12:00: 00 AM EDT active Blood Pressure Monitor - eCW3 ([facility]) Blood Pressure Monitor - Blood Pressure Monitor - 12/31/2019 12:00: 00 AM EDT active Blood Pressure Monitor - eCW3 ([facility]) Blood Pressure Monitor - Blood Pressure Monitor - 12/31/2019 12:00: 00 AM EDT active Blood Pressure Monitor - eCW3 ([facility]) Potassium Chloride 10 MEQ Extended Release Oral Capsul e Potassium Chloride 10 MEQ 12/11/2019 12:00:00 AM EDT 1.0 {capsule_with_food} active Potassium Chloride 10 MEQ eCW3 ([facility]) Potassium Chloride 10 MEQ Extended Release Oral Capsul e Potassium Chloride 10 MEQ 12/11/2019 12:00:00 AM EDT 1.0 {capsule_with_food} active Potassium Chloride 10 MEQ eCW3 ([facility]) Potassium Chloride 10 MEQ Extended Release Oral Capsul e Potassium Chloride 10 MEQ 12/11/2019 12:00:00 AM EDT 1.0 {capsule_with_food} active Potassium Chloride 10 MEQ eCW3 ([facility]) Potassium Chloride 10 MEQ Extended Release Oral Capsul e Potassium Chloride 10 MEQ 12/11/2019 12:00:00 AM EDT 1.0 {capsule_with_food} active Potassium Chloride 10 MEQ eCW3 ([facility]) Potassium Chloride 10 MEQ Extended Release Oral Capsul e Potassium Chloride 10 MEQ 12/11/2019 12:00:00 AM EDT 1.0 {capsule_with_food} active Potassium Chloride 10 MEQ eCW3 ([facility]) Potassium Chloride 10 MEQ Extended Release Oral Capsul e Potassium Chloride 10 MEQ 12/11/2019 12:00:00 AM EDT 1.0 {capsule_with_food} active Potassium Chloride 10 MEQ eCW3 ([facility]) Metronidazole 500 MG Oral Tablet Metronidazole 500 MG 2019 12:00:00 AM EDT 4.0 {tablet} active Metronidazo le 500 MG eCW3 ([facility]) Metronidazole 500 MG Oral Tablet Metronidazole 500 MG 2019 12:00:00 AM EDT 4.0 {tablet} active Metronidazo le 500 MG eCW3 ([facility]) Metronidazole 500 MG Oral Tablet Metronidazole 500 MG 2019 12:00:00 AM EDT 4.0 {tablet} active Metronidazo le 500 MG eCW3 ([facility]) Metronidazole 500 MG Oral Tablet Metronidazole 500 MG 2019 12:00:00 AM EDT 4.0 {tablet} active Metronidazo le 500 MG eCW3 ([facility]) Metronidazole 500 MG Oral Tablet Metronidazole 500 MG 2019 12:00:00 AM EDT 4.0 {tablet} active Metronidazo le 500 MG eCW3 ([facility]) Metronidazole 500 MG Oral Tablet Metronidazole 500 MG 2019 12:00:00 AM EDT 4.0 {tablet} active Metronidazo le 500 MG eCW3 ([facility]) tramadol hydrochloride 50 MG Oral Tablet Tramadol HCl 50 MG Tramadol HCl 50 MG 07/24/2019 12:00:00 AM EST 1.0 {tablet_as_needed} active Tramadol HCl 50 MG eCW3 ([facility]) tramadol hydrochloride 50 MG Oral Tablet Tramadol HCl 50 MG Tramadol HCl 50 MG 07/24/2019 12:00:00 AM EST 1.0 {tablet_as_needed} active Tramadol HCl 50 MG eCW3 ([facility]) tramadol hydrochloride 50 MG Oral Tablet Tramadol HCl 50 MG Tramadol HCl 50 MG 07/24/2019 12:00:00 AM EST 1.0 {tablet_as_needed} active Tramadol HCl 50 MG eCW3 ([facility]) tramadol hydrochloride 50 MG Oral Tablet Tramadol HCl 50 MG Tramadol HCl 50 MG 07/24/2019 12:00:00 AM EST 1.0 {tablet_as_needed} active Tramadol HCl 50 MG eCW3 ([facility]) tramadol hydrochloride 50 MG Oral Tablet Tramadol HCl 50 MG Tramadol HCl 50 MG 07/24/2019 12:00:00 AM EST 1.0 {tablet_as_needed} active Tramadol HCl 50 MG eCW3 ([facility]) tramadol hydrochloride 50 MG Oral Tablet Tramadol HCl 50 MG Tramadol HCl 50 MG 07/24/2019 12:00:00 AM EST 1.0 {tablet_as_needed} active Tramadol HCl 50 MG eCW3 ([facility]) tramadol hydrochloride 50 MG Oral Tablet Tramadol HCl 50 MG Tramadol HCl 50 MG 07/24/2019 12:00:00 AM EST 1.0 {tablet_as_needed} active Tramadol HCl 50 MG eCW3 ([facility]) Acetaminophen 500 MG Oral Tablet Acetaminophen 500 MG 2018 12:00:00 AM EST 1.0 {tablet_as_needed} active A cetaminophen 500 MG eCW3 ([facility]) tizanidine 4 MG Oral Tablet Tizanidine HCl 4 MG Tizanidine H Cl 4 MG 11/28/2017 12:00:00 AM EDT 1.0 {tablet_as_needed} active Tizanidine HCl 4 MG eCW3 ([facility]) Insurance Providers Payer name Policy type / Coverage type Policy ID Covered democrat ID Covered democrat's relationship to magana Policy Magana Plan Information [facility] [employer] [id number] SP [id number] [facility] [employer] [id number] SP [id number] [facility] [employer] [id number] SP [id number] [facility] MEDICAID MGD I [id number] Self [id number] EMEDNY [id number] SP [id number] MEDICARE [id number] SP [id number] Problems, Conditions, and Diagnoses Code Display Name Description Problem Type Effective Dates Data Source(s) N18.3 CKD (chronic kidney disease) stage 3, GF R 30-59 ml/min CKD (chronic kidney disease) stage 3, GFR 30-59 ml/min Problem 12/10/2019 12:00:00 AM ED T eCW3 ([facility]) M54.5 Acute midline low back pain without scia sue Acute midline low back pain without sciatica Problem 11/13/2019 12:00:00 AM EDT eCW3 ([facility]) M54.5 Acute midline low back pain without scia sue Acute midline low back pain without sciatica Problem 11/13/2019 12:00:00 AM EDT eCW3 ([facility]) W22.09XA Striking against other stationary object , initial encounter Striking against other stationary object, initial encounter Diagnosis 01:25:00 AM [facility] S06.6X0A Traumatic subarachnoid hemor rhage without loss of consciousness, initial encounter Traumatic subarachnoid hemorrhage withou t loss of consciousness, initial encounter Diagnosis 06/07/2020 01:25:00 AM [facility] I60.9 Nontraumatic subarachnoid hemorrhage, un specified Nontraumatic subarachnoid hemorrhage, unspecified Diagnosis 06/07/2020 01:25:00 AM [facility] Brain Bleed Brain Bleed Diagnosis 06/07/2020 01:25:00 AM [facility] LLE pain LLE pain Diagnosis 06/06/2020 12:24:00 AM [facility] R91.1 Solitary pulmonary nodule Solitary pulmonary nodule Di agnosis 04/12/2020 02:56:00 PM [facility] C34.91 Malignant neoplasm of unspecified part o f right bronchus or lung Malignant neoplasm of unspecified part of right bronchus or lung Diagnosis 03/31/2020 10:12:00 AM [facility] Surgeries/Procedures Procedure Description Date Indications Data Source(s) CT ANGIOGRAPHY HEAD W/CONTRAST/NONCONTRAST CT ANGIOGRAPHY HEAD [id number] STAT 06/07/2020 3:24 AM EST 06/07/2020 03:24:22 AM [facility] PARTIAL THROMBOPLASTIN TIME (PTT) PARTIAL THROMBOPLASTIN TIME ( PTT) Routine 06/07/2020 2:06 AM EST 06/07/2020 02:06:00 AM [facility] PROTHROMBIN TIME PROTIME INR Routine 06/07/2020 2:06 AM EST 06/07/2020 02:06:00 AM [facility] BLOOD COUNT COMPLETE AUTO&AUTO DIFRNTL WBC COUNT CBC AND DIFFER ENTIAL Routine 06/07/2020 2:06 AM EST 06/07/2020 02:06:00 AM [facility] HEPATIC FUNCTION PANEL HEPATIC FUNCTION PANEL A STAT 0 2:06 AM EST 06/07/2020 02:06:00 AM [facility] BASIC METABOLIC PANEL CALCIUM TOTAL BASIC METABOLIC PANEL STAT 06/07/2020 2:06 AM EST 06/07/2020 02:06:00 AM [facility] Results ID Date Data Source [id number] 07/03/2020 09:09:00 AM EST [facility] Name Value Range Interpretation Code Description Data Jacqueline rce(s) Supporting Document(s) SARS coronavirus 2 RNA [Presence] in Res piratory specimen by [place] with probe detection [facility] This lab was ordered by [facility] a nd reported by [facility]. ID Date Data Source [id number] 06/17/2020 03:55:16 PM [facility] Name Value Range Interpretation Code Description Data Jacqueline rce(s) Supporting Document(s) ED Provider Note [facility] [id number]/QJUliLZEey2TjJUehDAv2UJrwYEFyV2DqWFI1uQ7aMXF4DJkZOqMiCwJhIyRc [facility] [file] QuyYBjOEk8H20ppMViYKgeQS2DYYF+Quinton+Xf7JXIAzCABiWMNvCwNjHJTBHiVcX4ZnA9AZx4YgR5LvXF 72wMksodUpZGikLV7YNZ3bUXAoJWHOLH2CtEBmaW6l apChZLLmZTGIWrHmU58ryFUaHFVeCZZ1YDKmQp1JTBRfM1UphhLrnInkkfWdSNYxGWBBRV1VEWbhplBy sLQdaPcyDA84nFzcEY0QVy0IEnVmDW1nfa4ZsCGaRr5GYSV1FT2USRSjCVVvKMIuQTT6VITpNrIpOAxj QNQeJRSlCSS7MXVrYWVjXW0AIlEsREOhGRAnQQTpRE DjPFDatn5ZXUOhGMB5Xpi3UvJkXXWvYEUzYFluHUFtMEYxLVJ2PLVkNWWwDF2RKkEfNFKmFTT6XIqzWQ BqNUElwq2TBOPfURJcGtJ6RpEoDWSdNNNgHUldXIErBJB2GgX7DMNwGKCqYV3REhKhQMPfXCS4CrVvCV PpYDBrua0GCTXnWTKjFJz8VzCzKIRuPMUzBGszTISg BYY1WAb7GIWoPELhWF7GYxVrFMBsARA9HGdzJIZyFDXhik2UXHTjOMZlVFv7CEYuSBAgYZQiXTrsJISt LDV2HbA2AWAnYGExUW0JDtPkKYOrSEI1WBFuMLYcBIFelu7JCHUxMTUsSiE6TJGfDHSmNOXwNKqkOCPh GVH3ZAw4REJrZSRvGN5ALqWgKPBgBhAiOnAuKNCwUD Wqjs2CUIScMRPpORH1NtGkYIVmNWBvQLfyXYPlDBJfEzJxTNYyNJJsRP6EZmUeXMFdOkQ9LrasIXRdXA Bpdo9FYNTpEKYaHBM9EpDrMHDsERPhTFugUBQmTIK5DtzsJTMeRZKqDQ8VMfEgHDAsSgS5FNHvWEKaDG Uexf7YKJAjLJNrJiy5OSNjROQqLSQrQXluMDJtMGH6 KSSaCMFvGVCmHF0YWqQqKECfUiumEXJkJDUfDUBiys8LJLEeBZOdEMB2IWSpAHTxSYAnTQddDMUcHKS0 KHehTCMzSRUyEK7QOxNxXUBqZsj0VFFkNTSoXUYjxl8QXPUjWIUeHZYwVVNqOVIxVSYlZBttRJWiEUB2 YXFsCSFpNYSaSB3DDoEmHUZhMLCsBTscDVVhWJKzhc 2SDVYqQJB3OYGhMOLjAXQcMTCnMEmwLPUxADLaKfX3ADCiOAWlVQ3FFhAqOZBdXYW8TdRgDWOpRMGnbc 1CGGQcNXH3CdFkFCYvJYUqGNYjCOliCJJhGJPjAYI2BLJhOZLsRI3VVbYsIIKmEQGfAaidKRZxFOZaju 1TESTcXPP4WSD8OOMvCKIqZURcRMoqJRAaYEK4Hzjb MDQdPMIkLP8HYvUvRVZqRIS4HnRqHQYrSDJzto7HMLMcCHJ6RAP9LRWqXNJfCBRpMLpdUSKkIJS8FZJc NNOrDWJnSP6TPeYmDYWxCZB1ETDuETXrJEAkoc8CjXAcpFkmyp0BNYpACj0AmWqbFVN0LAfgRc8bdYS2 CLUdLRRIPk4WulDkNMJvJWNFKZglKXJhUOBzSLK1LB Q7Gjq9XYMsUFG2GYLkCuZdLeC6TbqzMIf5GvR4L0XnGPb7ZXOeAEYnYEX6WrhlUFZ1YfQwIwvvU4HuSK Y+TF1qFYh+Hz7Pn8EaszN2tiDyHJs3YJIhQM6SOAJJQ7FOFy== ID Date Data Source [id number] 06/07/2020 10:07:07 AM [facility] Name Value Range Interpretation Code Description Data Jacqueline rce(s) Supporting Document(s) Consultation [facility] [id number]/ZXXbySCIye7ImTVkfPEs4CVbfFWMjF5VcRQO0rM4tOXJ5RSzIKiEyVgBrXPHm lbm [file] xyJjyh8DYY4Huh7ODr5TYAoJO6Cj87/hbG4Wr5Sn/Motor [employer] Driver+Kxi39neLQ0Xtz17JnuPqdxm7/Ahr+rE5pmrS [file] MTI+TY6gIRo+Wu5It2HrgfM9jrTqJTwcVUKdPk0TVHGHD2DVUs== ID Date Data Source [id number] 06/07/2020 09:32:[address] [facility] [address] ANGIOGRAPHY HEAD [id number] RESULTInt erpreted by:Carlene Garay, MDCT ANGIOGRAPHY HEAD [id number] INDICATION: Please evaluate for Sinus venous thrombosis.TECHNIQUE: Contiguous axial CT images of the head were acquired from the base of the skull to the vertex without intravenous contrast administration. CT venography of the head was performed following intravenous administration of 75 mL of Omnipaque 350 injected at a rate of 5 cc/sec. Multiple MIP images in axial, coronal, and sagittal planes were then acquired using the source data. 3-D volume rendered images were not available at the time of this dictation. Automated dose lowering techniques and/or adjustment according to patient size were utilized for this examination.COMPARISON: Outside CT head dated 06/06/2020.FINDINGS: Non-enhanced CT head: There is a punctate hyperdense focus in the left parietal lobe (image 23/32). There are scattered regions of low-attenuation in the periventricular and subcortical white matter, which can be seen with chronic small vessel ischemic disease. The eugene-white matter differentiation is preserved. Physiological calcification in the right basal ganglia. The ventricles are normal in size. The basal cisterns are patent. No midline shift or extra-axial fluid collections. No evidence of an acute territorial infarct.No depressed calvarial fracture. Extracranial soft tissues are normal. The visualized paranasal sinuses and mastoid air cells are clear.CTV Head: The major dural venous sinuses are patent. There is no evidence of dural sinus thrombosis. The intracranial segments of the vertebral arteries are patent. The distal right vertebral artery is diminutive in appearance. The left vertebral artery is dominant. The intracranial segments of the internal carotid arteries demonstrate atherosclerotic calcifications without significant stenosis or dissection. The intracranial arteries of the [place] are patent without evidence of large vessel occlusion, arteriovenous malformation, dissection, or aneurysm.IMPRESSION: 1. Punctate hyperdense focus in the left parietal lobe, concerning for subarachnoid hemorrhage. Given differences in technique, there is no significant interval change from prior exam.2. Patent dural venous sinuses without evidence of thrombosis.3. No large vessel occlusion in the major intracranial arteries of the [place].Assessment of stenosis of the internal carotid arteries is based on NASCET criteria.The primary team is aware of these findings at the time of dictation.This document has been electronically signed by Kelvin Schwab MD on 06/07/2020 9:30 AM Name Value Range Interpretation Code Description Data Jacqueline rce(s) Supporting Document(s) ID Date Data Source [id number] 06/07/2020 02:23:37 AM [facility] Name Value Range Interpretation Code Description Data Jacqueline rce(s) Supporting Document(s) Leukocytes [#/volume] in Blood by Automated count 8.2 10*3/uL 4-10 [facility] Erythrocytes [#/volume] in Blood by Automated count 3.86 10*6/uL 4.1- 5.3 L [facility] Hemoglobin [Mass/volume] in Blood 12.2 g/dL 11.5-15.5 [facility] Hematocrit [Volume Fraction] of Blood by Automated count 36.1 % 3 6-45 [facility] Erythrocyte mean corpuscular volume [Entitic volume] by Auto mated count 93.7 fL 80-96 [facility] Erythrocyte mean corpuscular hemoglobin [Entitic mass] by Automated count 31.7 pg 27-33 [facility] Erythrocyte mean corpuscular hemoglobin concentration [Mass/volume] by Automated count 33.8 g/dL [facility].0[facility] width [Ratio] by Automated count 13.2 % 11.5-14.5 [facility] Platelets [#/volume] in Blood by Automated count 205 10*3/uL 150-400 [facility] Differential cell count method - Blood [facility] Neutrophils/100 leukocytes in Blood by Automated count 60 % [facility] Lymphocytes/100 leukocytes in Blood by Automated count 27 % [facility] Monocytes/100 leukocytes in Blood by Automated count 11 % [facility] Eosinophils/100 leukocytes in Blood by Automated count 1 % [facility] Basophils/100 leukocytes in Blood by Automated count 1 % [facility] Neutrophils [#/volume] in Blood by Automated count 4.90 10*3/uL 1.8-7 .0 [facility] Lymphocytes [#/volume] in Blood by Automated count 2.22 10*3/uL 1.2-4 .0 [facility] Monocytes [#/volume] in Blood by Automated count 0.92 10*3/uL 0-0.8 [facility] Eosinophils [#/volume] in Blood by Automated count 0.09 10*3/uL 0-0.5 [facility] Basophils [#/volume] in Blood by Automated count 0.04 10*3/uL 0-0.2 [facility] Nucleated erythrocytes/100 leukocytes [Ratio] in Blood by Automated count 0 /100{WBCs} 0-0 [facility] ID Date Data Source [id number] 06/07/2020 02:30:34 AM EST [facility] Name Value Range Interpretation Code Description Data Jacqueline rce(s) Supporting Document(s) Prothrombin time (PT) 14.2 s 12.5-14.9 [facility] INR in Platelet poor plasma by Coagulation assay 1.09 [facility] Routine intensity oral anticoagulation I NR is typically 2.0-3.0. Target INR must be clinically individualized. ID Date Data Source [id number] 06/07/2020 02:30:34 AM [facility] Name Value Range Interpretation Code Description Data Jacqueline rce(s) Supporting Document(s) aPTT in Platelet poor plasma by Coagulation assay 29.4 s 24.0-33. 0 [facility] ID Date Data Source [id number] 06/07/2020 02:43:18 AM [facility] Name Value Range Interpretation Code Description Data Jacqueline rce(s) Supporting Document(s) Albumin [Mass/volume] in Serum or Plasma by Bromocresol green (BCG) dye binding method 3.7 g/dL 3.5-5.2 [facility] al Bilirubin.total [Mass/volume] in Serum or Plasma 0.6 mg/dL <1.2 [facility] Bilirubin.direct [Mass/volume] in Serum or Plasma 0.2 mg/dL <0.3 [facility] Alkaline phosphatase [Enzymatic activity/volume] in Serum or Plasma 239 U/L 35-104 [facility] Aspartate aminotransferase [Enzymatic activity/volume] in Serum or Plasma 27 U/L <32 [facility] Alanine aminotransferase [Enzymatic activity/volume] in Seru m or Plasma 9 U/L <33 [facility] Protein [Mass/volume] in Serum or Plasma 7.7 g/dL 6.4-8.3 [facility] ID Date Data Source [id number] 06/07/2020 02:43:18 AM [facility] Value Range Interpretation Code Description Data Jacqueline rce(s) Supporting Document(s) Bicarbonate [Moles/volume] in Serum 27 mmol/L 22-29 [facility] Chloride [Moles/volume] in Serum or Plasma 99 mmol/L 98-107 [facility] Creatinine [Mass/volume] in Serum or Plasma 1.17 mg/dL 0.50-0.90 [facility] Glucose [Mass/volume] in Serum or Plasma 122 mg/dL 70-140 [facility] Potassium [Moles/volume] in Serum or Plasma 3.1 mmol/L 3.4-5.1 L [facility] Sodium [Moles/volume] in Serum or Plasma 135 mmol/L 136-145 L [facility] Urea nitrogen [Mass/volume] in Serum or Plasma 26 mg/dL 8-23 [facility] Anion gap 3 in Serum or Plasma 9 mmol/L 8-15 [facility] Osmolality of Serum or Plasma by calculation 286 mosm/kg 275-300 [facility] Creatinine/Urea nitrogen [Mass Ratio] in Serum or Plasma 22 [facility] Calcium [Mass/volume] in Serum or Plasma 9.0 mg/dL 8.8-10.2 [facility] Glomerular filtration rate/1.73 sq M pre dicted among non-blacks [Volume Rate/Area] in Serum or Plasma by Creatinine-based formula (MDRD) 49 mL/min/1.73m2 >60 [facility] Glomerular filtration rate/1.73 sq M pre dicted among blacks [Volume Rate/Area] in Serum or Plasma by Creatinine-based formula (MDRD) 57 mL/min/1.73m2 >60 L [facility] ID Date Data Source [id number] 05/12/2020 12:00:00 AM EDT [facility] Name Value Range Interpretation Code Description Data Jacqueline rce(s) Supporting Document(s) 2019-nCoV RNA XXX OH+probe-Imp [facility] This lab was ordered by [employer] and reported by [employer]. ID Date Data Source [id number] 04/13/2020 05:48:00 PM EDT [facility] Surgical Pathology Report See Addendum B [place]: GITA HOOVERRN: [id number] Number: [id number] Date: 04/12/2020 00:00Received Date: 04/12/2020 14:58Physician(s): NEIL GIL MD VYAS, SHIKHAR G,MDSpecimen(s) ReceivedA: Slides received for consultation, CCClinical HistoryHistory of breast cancer. Right lung nodule biopsy with "metastaticadenocarcinoma of mammary origin". Tumor cells reported to be [id number]. For [place], [place], and HER2 IHC, reflex to HER FISH.Addendum 04/27/2020 RESULTS OF MOLECULAR ASSAYS: Test name: HER2 by FISHTest interpretation: POSITIVE FOR HER2 (ERBB2) GENE AMPLIFICATION. ([id number] for full report)./pmw Addendum Electronically Signed By: Jose Mccall MD; 04/27/2020 DiagnosisIMMUNOHISTOCHEMISTRY, RIGHT LUNG NODULE, BIOPSY ([id number]; 03/26/20): ESTROGEN RECEPTORS: Positive (strong intensity in 100% of tumor cells).PROGESTERONE RECEPTORS: Positive (moderate intensity in 70% of tumorcells).HER2: Equivocal (2+); HER2 FISH pending (addendum report will follow).Electronically Signed By Jose Mccall MD;, Attending Pathologist04/13/2020 17:48:37 Unless 'gross-only' is specified, the final diagnosis is based on amicroscopic examination of open claims representative sections of tissue.Gross DescriptionReceived [facility] [place], [place] is 1 paraffinblock, labeled [id number] with the corresponding pathology report. This report may include one or more immunohistochemical stain results thatuse analyte specific reagents. All positive and negative controls havebeen reviewed by the attending pathologist and are satisfactory. The testswere developed and their performance characteristics determined by [facility] Pathology department. They have not been cleared or approved by the USFood and Drug Administration. The FDA has determined that such clearanceor approval is not necessary. Name Value Range Interpretation Code Description Data Jacqueline rce(s) Supporting Document(s) ID Date Data Source [id number] 04/23/2020 06:38:00 PM [facility] Anatomic Molecular Pathology ReportName: GITA HOOVERRN: [id number] Number: [id number] Date: 04/12/2020 00:00Received Date: 04/15/2020 11:15Physician(s): NEIL GIL MD VYAS, SHIKHAR G,MDSpecimen(s) ReceivedA: Slides received for consultation, CC, Formalin Block [id number] M5fptygxst from [facility] in [place], [place], [id number] by FISHDiagnosisTEST: HER2 (ERBB2) by FISH (Fluorescence in situ Hybridization ).RESULT: RATIO of HER2 (ERBB2) to CEP17 (D17Z1) is 2.2Average HER2 (ERBB2) copy number per cell is 7.4International System for Cytogenetic Nomenclature: nuc darren([id number]), 3~16(ERBB2)[80]INTERPRETATION:POSITIVE FOR HER2 (ERBB2) GENE AMPLIFICATION.The average of HER2 and CEP17 copies per cell in breast cancer is 7.4 and3.3 respectively, which makes a ratio of HER2 to CEP17 2.2. Based oncurrent ASCO/CAP guideline recommendations for (Arch Pathol Lab Med. doi:10.5858/arpa.8530-4753-MO), a ratio of HER2 to CEP17 that is d 2.0 (withHER2 copy number d 4 per cell) or average HER2 copy number d 6 per cellis considered positive, while a ratio of < 2.0 or average HER2 copy number< 6.0 is considered negative. This result is an adjunct to other clinicaland pathologic information for prediction of therapeutic response./ld Electronically Signed By Antonio Nina M.D. Attending Pathologist 04/23/2020 18:38:54Gross DescriptionMETHODOLOGY: Interphase FISH is performed on paraffin embedded breast cancerutilizing the [employer] HER2 DNA Probe Kit. This is a combination, directlabel, dual color detection system utilizing 2 probes: 1) HER2 (17q11.2 - q12, 190 kb, encompassing the gene) with SpectrumOrange label, and 2) CEP17 (17p11.1- q11.1, chromosome 17 centromere) with SpectrumGreen label. Tumor cells with no HER2 amplification have, on average, 2 orange and 2green signals. Amplification will result in multiple copies of the PAB7qsld, expressed as multiple orange signals. Hybridization is carried out as per the stated protocol with nosignificant background or random probe hybridization detected. Cells arecounterstained with DAPI. A total of 40 interphase nuclei from a region ofinvasive or metastatic tumor are examined by two different scorers. If theratio of HER2 /D17Z1 is 1.8-2.2, 40 more nuclei are evaluated. Also, ifthe HER2 gene copy number is 4.0-6.0, 40 more nuclei are evaluated. This FISH Probe Kit was approved by the FDA for this application andhas been validated in the Special Procedures Laboratory in the Departmentof Pathology, [facility]. REFERENCES1. CANDACE Ron, [place] Radha, AVELINO Johnson, et al. Recommendations for humanepidermal growth factor receptor 2 testing in breast cancer. Arch PatholLab Med, 2014; 138:241-256.2. Jordyn Guillaume and PVAAN Engel. Updates in HER2 Testing in GastricCancer. J Gastroint Dig Syst 2013, 3:2. This report may include one or more immunohistochemical stain results thatuse analyte specific reagents. All positive and negative controls havebeen reviewed by the attending pathologist and are satisfactory. The testswere developed and their performance characteristics determined by [facility] Pathology department. They have not been cleared or approved by the USFood and Drug Administration. The FDA has determined that such clearanceor approval is not necessary. Name Value Range Interpretation Code Description Data Jacqueline rce(s) Supporting Document(s) ID Date Data Source [id number] 04/02/2020 06:14:00 PM [facility] Surgical Pathology ReportName: GITA HOOVERRJamil: [id number] Number: [id number] Date: 03/31/2020 00:00Received Date: 03/31/2020 10:14Physician(s): NEIL GIL MD VYAS, SHIKHAR G,MDSpecimen(s) ReceivedA: Material received for consultation, GDLRClinical HistorySecond opinion.DiagnosisLUNG, RIGHT, NEEDLE BIOPSY ([id number], 03/26/20): METASTATIC ADENOCARCINOMA.(See Microscopic Description).Electronically Signed By Jovan Garcia M.D., Attending Pathologist04/02/2020 18:14:09 Gross DescriptionReceived from [facility] in [place], [place], are 1 H and Estained slide and 8 specially stained slides, 1 paraffin block, [id number], with the corresponding pathology report. A abdomen and pelvisCT report was also received.Microscopic DescriptionI completely agree with your diagnosis of adenocarcinoma, which in thesetting of multiple bilateral nodules, is most consistent with metastaticdisease. Your immunohistochemistry shows that the tumor is stronglypositive for CK7 and negative for TTF-1, CK20, CDX-2 and p16.Immunohistochemistry for PAX-8 and SATB-2 performed in our lab isnegative. While the morphology suggest an intestinal phentoype, the lackof reactivity with CDX-2 and SATB-2 makes intestinal origin highlyunlikely. The lack of reactivity with PAX-8 and p16 argue against upperfemale genital tract and cervical origin. While the clinicopathologicfeatures are in keeping with a metastatic adenocarcinoma, theimmunphenotype is nonspecific. The possibility of upper gastrointestinalorigin should be considered. Thank you for letting me see this case inconsultation and I apologize for not being able to be of more assistanceto you. This report may include one or more immunohistochemical stain results thatuse analyte specific reagents. All positive and negative controls h avebeen reviewed by the attending pathologist and are satisfactory. The testswere developed and their performance characteristics determined by [facility] Pathology department. They have not been cleared or approved by the USFood and Drug Administration. The FDA has determined that such clearanceor approval is not necessary. Name Value Range Interpretation Code Description Data Jacqueline rce(s) Supporting Document(s) ID Date Data Source [id number] 03/31/2020 07:05:00 PM EDT [facility] Name Value Range Interpretation Code Description Data Jacqueline rce(s) Supporting Document(s) Written Authorization [facility] Written Authorization Received.Authoriza tion received from [facility] [id number] by Laura Mcintyre ID Date Data Source [id number] 04/29/2020 02:06:00 PM EDT [facility] Name Value Range Interpretation Code Description Data Jacqueline rce(s) Supporting Document(s) SPECIMEN TYPE [facility] Whole Blood PREAUTHORIZATION [facility] Prior authorization review complete CLINICAL INDICATION [facility] Personal and/or family history of Heredi tary Breast andOvarian Cancer (HBOC) RESULTS [facility] NEGATIVE FOR PATHOGENIC VARIANTSNo clini ashly significant variants or variants of uncertainsignificance were identified.GENE VARIANTBRCA1 NEGATIVE No pathogenic variants were identified.BRCA2 NEGATIVE No pathogenic variants were identified. INTERPRETATION [facility] No pathogenic variants were identified. ADDITIONAL CLINICAL INFORM. [facility] NCCN GuidelinesWhen BRCA1 and BRCA2 resu lts are negative, additionaltesting may be helpful for some patients with breast,ovarian, and pancreatic cancer. Guidelines from [facility] Network(R) (NCCN(R))recommend considering germline genetic testing forhigh-penetrance breast and/or ovarian cancer genes(including, but not limited to, BRCA1/2, CDH1, PALB2, PTEN,and TP53) in patients with any of the criteria in the tablebelow. To discuss comprehensive genetic testing for breast,ovarian, and pancreatic cancer genes, an salgomed Executive Personal Assistant is available at [phone].Breast cancer diagnosed Ovarian cancer at any age<= age 45Breast cancer diagnosed Breast cancer diagnosed atage 46-50 with >= 1 any age, with >= 1 closeclose relative with relative with breast cancerbreast, ovarian, <= age 50, or ovarian,pancreatic, or high pancreatic, or metastaticgrade prostate cancer prostate cancerMale breast cancer at Pancreatic cancer at any ageany ageTriple negative breast Metastatic prostate cancer atcancer diagnosed <= 60 any ageBreast, ovarian, or A first or second degreepancreatic cancer at any relative meeting any of theage; and Ashkenazi criteria in this tableJewi ancestry RECOMMENDATIONS [facility] Genetic counseling is recommended to dis cuss the potentialclinical and/or reproductive implications of these results,as well as recommendations for testing family members. Toaccess [facility] please [email or web address] or call [phone] ([phone]). METHODS AND LIMITATIONS [facility] Next-generation sequencing: Genomic charlie ons of interest areselected using a custom capture reagent for targetenrichment and sequenced via the [employer](R) Purkinje sequencing platform. Regions of interest includeall exons and intron/exon junctions (+/-20 nucleotides) ofthe BRCA1 (NM_007294.3) and BRCA2 (NM_000059.3) genes.Sequencing reads are aligned with the human genomereference GRCh37/hg19 build. Minimum mean coverage is 40X.Any segment failing minimum read depth coverage is rescuedby bi-directional Bruno sequencing to complete sequenceanalysis. Variants, including SNVs and CNVs, are identifiedusing a custom bioinformatics pipeline.Reported variants: Pathogenic and likely pathogenicvariants and variants of uncertain significance (VUS) arereported. Non-deletion variants are specified using thenumbering and nomenclature recommended by the Human GenomeVariation Society (HGVS, http://www.hgvs.org/). Benignvariants are not reported. Variant classification andconfirmation are consistent with ACMG standards andguidelines (Chandler, PMID:[id number]; Josephine, PMID:16004520).Detailed variant classification information is availableupon request. A variant of uncertain significance (VUS)should not be used in clinical decision making; a VUS isclassified based on inadequate or conflicting evidenceregarding its pathogenicity or clinical relevance.Limitations: Technologies used do not detect germlinemosaicism and do not rule out the presence of largechromosomal aberrations, including rearrangements, genefusions, or variants in regions or genes not included inthis test, or possible inter/ intragenic interactionsbetween variants. Variant classification and/orinterpretation may guide changer time if more informationbecomes available. False positive or false negative resultsmay occur for reasons that include: genetic variants,pseudogene interference, technical handling, bloodtransfusions, bone marrow transplantation, mislabeling ofsamples, or erroneous representation of familyrelationships. For heterozygous variants in the same genethe assay cannot determine whether they are on the same ordifferent chromosome; to determine phase and clinicalsignificance, rarely, parental testing may be required.Exact breakpoints of exon-level deletions/duplications arenot determined. The presence of an inherited cancersyndrome due to a different genetic cause cannot be ruledout. Any interpretation should be clinically correlatedwith information about the patients presentation andrelevant family history.This test was developed and its performance characteristicsdetermined by [facility]. It has not been cleared or approvedby the Food and Drug Administration. REFERENCES [facility] 1. NCCN Genetic/Familial High Risk Asses sment: Breast,Ovarian, and Pancreatic. Version 1.2020.2. Raúl et al. BRCA1- and BRCA2-AssociatedHereditary Breast and Ovarian Cancer. GeneReviews, [id number]. PMID: [id number]. RELEASED BY [facility] Clarissa Damico, MS, CGC, MSCR, under the direction ofDebbie Mcbride, PhD, [facility] PDF . [facility] ID Date Data Source [id number] 03/31/2020 03:05:00 PM EDT [facility] Name Value Range Interpretation Code Description Data Jacqueline rce(s) Supporting Document(s) Request Problem [facility] Test cancelled at client's request. TEST: [id number] Liver Cancer Monitor Profile Authorized by: Lani Rosado at your facility ID Date Data Source HIV RNA, Real Time PCR (Graph) [id number] 07/24/2019 12:00:00 AM EST eCW3 ([facility]) Name Value Range Interpretation Code Description Data Jacqueline rce(s) Supporting Document(s) HIV 1 RNA [#/volume] (viral load) in Ser um or Plasma by Probe and target amplification method 40 HIV-1 RNA by PCR eCW3 ([facility]) HIV 1 RNA [Log #/volume] (viral load) in Plasma by Probe and target amplification method 1.602 log10 HIV-1 RNA eCW3 ([facility]) ID Date Data Source CD4/CD8 Ratio Profile [id number] 07/24/2019 12:00:00 AM EST eCW3 ([facility]) Name Value Range Interpretation Code Description Data Jacqueline rce(s) Supporting Document(s) Deprecated CD4 cells [#/volume] in Blood 995 [id number] Absolute CD 4 [place] eCW3 ([facility]) Deprecated CD8 cells [#/volume] in Blood 3207 109-897 Abs. CD 8 Suppressor eCW3 ([facility]) Deprecated CD4 cells/100 cells in Blood 16.3 30.8-58.5 % CD 4 Pos. Lymph. eCW3 ([facility]) Deprecated CD8 cells/100 cells in Blood 55.3 12.0-35.5 % CD 8 Pos. Lymph. eCW3 ([facility]) Leukocytes [#/volume] in Blood by Automated count 15.2 3.4-10.8 WBC eCW3 ([facility]) Deprecated CD4 cells/CD8 Cells [# Ratio] in Blood 0.29 0.92 -3.72 CD4/CD8 Ratio eCW3 ([facility]) Erythrocytes [#/volume] in Blood by Automated count 4.93 3.77-5 .28 RBC eCW3 ([facility]) Erythrocyte mean corpuscular volume [Entitic volume] by Auto mated count 91 79-97 MCV eCW3 ([facility]) Erythrocyte mean corpuscular hemoglobin [Entitic mass] by Au tomated count 31.2 26.6-33.0 MCH eCW3 ([facility]) Hemoglobin [Mass/volume] in Blood 15.4 11.1-15.9 He moglobin eCW3 ([facility]) Hematocrit [Volume Fraction] of Blood by Automated count 44.9 34.0-46.6 Hematocrit eCW3 ([facility]) Neutrophils/100 leukocytes in Blood by Automated count 52 Not Estab. Neutrophils eCW3 ([facility]) Erythrocyte distribution width [Ratio] by Automated count 14.4 11.7-15.4 RDW eCW3 ([facility]) Erythrocyte mean corpuscular hemoglobin concentration [Mass/volume] by Automated count 34.3 31.5-35.7 MCHC eCW3 ([facility]) Platelets [#/volume] in Blood by Automated count 216 150-450 Platelets eCW3 ([facility]) Eosinophils/100 leukocytes in Blood by Automated count 1 Not Estab. Eos eCW3 ([facility]) Lymphocytes/100 leukocytes in Blood by Automated count 38 Not Estab. Lymphs eCW3 ([facility]) Basophils/100 leukocytes in Blood by Automated count 0 Not E stab. Basos eCW3 ([facility]) Monocytes/100 leukocytes in Blood by Automated count 9 Not E stab. Monocytes eCW3 ([facility]) Neutrophils [#/volume] in Blood by Automated count 7.9 1.4 -7.0 Neutrophils (Absolute) eCW3 ([facility]) Immature cells [#/volume] in Blood I mmature Cells eCW3 ([facility]) Lymphocytes [#/volume] in Blood by Automated count 5.8 0.7 -3.1 Lymphs (Absolute) eCW3 ([facility]) Immature granulocytes/100 leukocytes in Blood Immature Granulocytes eCW3 ([facility]) Monocytes [#/volume] in Blood by Automated count 1.4 0.1-0 .9 Monocytes(Absolute) eCW3 ([facility]) Basophils [#/volume] in Blood by Automated count 0.0 0.0-0.2 Baso (Absolute) eCW3 ([facility]) Eosinophils [#/volume] in Blood by Automated count 0.2 0.0-0.4 Eos (Absolute) eCW3 ([facility]) Immature granulocytes [#/volume] in Blood Immature Grans (Abs) eCW3 ([facility]) Nucleated erythrocytes/100 leukocytes [Ratio] in Blood by Automated count NRBC eCW3 ([facility]) Morphology [Interpretation] in Blood Narrative Note: Hematology Comments: eCW3 ([facility]) ID Date Data Source Comp. Metabolic Panel (14) ([id number] 07/24/2019 12:00:00 AM EST [facility]CW[facility] [facility]) Name Value Range Interpretation Code Description Data Jacqueline rce(s) Supporting Document(s) Urea nitrogen [Mass/volume] in Serum or Plasma 17 8-27 BUN eCW3 ([facility]) Glucose [Mass/volume] in Serum or Plasma 110 65-99 Glucose eCW3 ([facility]) Creatinine [Mass/volume] in Serum or Plasma 1.46 0.57-1.00 Creatinine eCW3 ([facility]) eGFR If NonAfricn Am 39 >59 eGFR If NonAfri cn Am eCW3 ([facility]) eGFR If Africn Am 44 >59 eGFR If Africn Am eCW3 ([facility]) Sodium [Moles/volume] in Serum or Plasma 136 134-144 Sodium eCW3 ([facility]) Urea nitrogen/Creatinine [Mass Ratio] in Serum or Plasma 12 12-28 BUN/Creatinine Ratio eCW3 ([facility]) Chloride [Moles/volume] in Serum or Plasma 92 96-106 Chloride eCW3 ([facility]) Carbon dioxide, total [Moles/volume] in Serum or Plasma 25 20-29 Carbon Dioxide, Total eCW3 ([facility]) Potassium [Moles/volume] in Serum or Plasma 3.2 3.5-5.2 Potassium eCW3 ([facility]) Calcium [Mass/volume] in Serum or Plasma 10.3 8.7-10.3 Calcium eCW3 ([facility]) Globulin [Mass/volume] in Serum by calculation 4.9 1.5-4.5 Globulin, Total eCW3 ([facility]) Albumin [Mass/volume] in Serum or Plasma 4.8 3.6-4.8 Albumin eCW3 ([facility]) Protein [Mass/volume] in Serum or Plasma 9.7 6.0-8.5 Protein, Total eCW3 ([facility]) Alkaline phosphatase [Enzymatic activity/volume] in Serum or Mary sma 133 39-117 Alkaline Phosphatase eCW3 ([facility]) Bilirubin.total [Mass/volume] in Serum or Plasma 1.0 0.0-1.2 Bilirubin, Total eCW3 ([facility]) Albumin/Globulin [Mass Ratio] in Serum or Plasma 1.0 1.2-2.2 A/G Ratio eCW3 ([facility]) Aspartate aminotransferase [Enzymatic activity/volume] in Se rum or Plasma 50 0-40 AST (SGOT) eCW3 ([facility]) Alanine aminotransferase [Enzymatic activity/volume] in Serum or Plasma 25 0-32 ALT (SGPT) eCW3 ([facility]) ID Date Data Source Lipid Panel With LDL/HDL Ratio.1 07/24/2019 12:00:00 AM EST eCW3 ([facility]) Name Value Range Interpretation Code Description Data Jacqueline rce(s) Supporting Document(s) Cholesterol [Moles/volume] in Serum or Plasma 174 100-199 Cholesterol, Total eCW3 ([facility]) Triglyceride [Mass/volume] in Serum or Plasma 109 0-149 Triglycerides eCW3 ([facility]) Cholesterol in HDL [Mass/volume] in Serum or Plasma 44 >39 HDL Cholesterol eCW3 ([facility]) Cholesterol in VLDL [Mass/volume] in Serum or Plasma by calculation 22 5-40 VLDL Cholesterol Bhargav eCW3 ([facility]) Cholesterol in LDL [Mass/volume] in Serum or Plasma by calculation 108 0-99 LDL Cholesterol Calc eCW3 ([facility]) Cholesterol in LDL/Cholesterol in HDL [Mass Ratio] in Serum or Plasma 2.5 0.0-3.2 LDL/HDL Ratio eCW3 ([facility]) Laboratory comment [Text] in Report Narrative Comment: eCW3 ([facility]) ID Date Data Source RPR, Rfx Qn RPR/Confirm TITO ([id number] 07/24/2019 12:00:00 AM EST eCW3 ([facility]) Name Value Range Interpretation Code Description Data Jacqueline rce(s) Supporting Document(s) Reagin Ab [Presence] in Serum by VDRL Non Reactive Non Reactive RPR eCW3 ([facility]) Procedure Social History Code Duration Value Status Description Data Source(s ) Smoking 06/07/2020 12:00:00 AM EST Unknown if ever smoked comp leted Unknown if ever smoked [facility] Smoking 05/11/2020 12:00:00 AM EDT Never Smoker completed Never S moker eCW3 ([facility]) Smoking 05/11/2020 12:00:00 AM EDT Never Smoker completed Never S moker eCW3 ([facility]) Smoking 12/31/2019 12:00:00 AM EDT Never Smoker completed Never S moker eCW3 ([facility]) Smoking 12/31/2019 12:00:00 AM EDT Never Smoker completed Never S moker eCW3 ([facility]) Smoking 12/31/2019 12:00:00 AM EDT Never Smoker completed Never S moker eCW3 ([facility]) Smoking 12/31/2019 12:00:00 AM EDT Never Smoker completed Never S moker eCW3 ([facility]) Smoking 11/13/2019 12:00:00 AM EDT Never Smoker completed Never S moker eCW3 ([facility]) Smoking 07/24/2019 12:00:00 AM EST Never Smoker completed Never S moker eCW3 ([facility]) Vital Signs ID Date Data Source UNK Name Value Range Interpretation Code Description Data Source(s) Diastolic blood pressure 81 mm[Hg] 81 mm[Hg] eCW3 ([facility]) Systolic blood pressure 128 mm[Hg] 128 mm[Hg] e CW3 ([facility]) Body temperature 97.2 [degF] 97.2 [degF] eCW3 ( [facility]) Heart rate 18 /min 18 /min eCW3 ([facility]) Body mass index (BMI) [Ratio] 20.97 kg/m2 20.97 kg/m2 eCW3 ([facility]) Body weight 126 [lb_av] 126 [lb_av] eCW3 ([facility]) Body height [in_i] eCW3 ([facility]) ID Date Data Source [id number] 06/07/2020 01:24:30 AM [facility] Name Value Range Interpretation Code Description Data Source(s) TRANSFER FROM [facility] Patient Treatment Plan of Care Planned Activity Planned Date Details Description Data Source (s) letrozole 2.5 MG Oral Tablet 05/11/2020 12:00:00 AM EDT eCW3 ([facility]) Albuterol Sulfate HFA 108 (90 Base) MCG/ ACT Inhalation Aerosol Solution (PROVENTIL HFA) 05/11/2020 12:00:00 AM EDT [facility] Hydrochlorothiazide 50 MG Oral Tablet 05/11/2020 12:00:00 AM EDT [facility] letrozole 2.5 MG Oral Tablet 05/11/2020 12:00:00 AM EDT eCW3 ([facility]) Acetaminophen 500 MG Oral Tablet 12/31/2019 12:00:00 AM EDT eCW3 ([facility]) Blood Pressure Monitor - 12/31/2019 12:00:00 AM EDT eCW3 ([facility]) Acetaminophen 500 MG Oral Tablet 12/31/2019 12:00:00 AM EDT eCW3 ([facility]) Blood Pressure Monitor - 12/31/2019 12:00:00 AM EDT eCW3 ([facility]) Acetaminophen 500 MG Oral Tablet 12/31/2019 12:00:00 AM EDT eCW3 ([facility]) Blood Pressure Monitor - 12/31/2019 12:00:00 AM EDT eCW3 ([facility]) Acetaminophen 500 MG Oral Tablet 12/31/2019 12:00:00 AM EDT eCW3 ([facility]) Blood Pressure Monitor - 12/31/2019 12:00:00 AM EDT eCW3 ([facility]) Potassium Chloride 10 MEQ Extended Release Oral Capsul e 12/11/2019 12:00:00 AM EDT eCW3 ([facility]) Potassium Chloride 10 MEQ Extended Release Oral Capsul e 12/11/2019 12:00:00 AM EDT eCW3 ([facility]) tramadol hydrochloride 50 MG Oral Tablet 07/24/2019 12:00:00 AM EST eCW3 ([facility]) Acetaminophen 500 MG Oral Tablet 06/24/2019 12:00:00 AM EST eCW3 ([facility]) tizanidine 4 MG Oral Tablet 11/28/2017 12:00:00 AM EDT eCW3 ([facility])
[2020-09-05] MEDS ORDERED: NS 1,000 ML IV ONE (17:15)
[2020-09-05 17:37] LABS: HEMATOCRIT 40.1 % (36.0-47.0); MEAN CORPUSCULAR HEMOGLOBIN 30.4 pg (27.0-33.0); MEAN CORPUSCULAR HGB CONC 32.4 g/dl (32.0-36.5); MEAN CORPUSCULAR VOLUME 93.9 fl (80.0-96.0); PLATELET COUNT, AUTOMATED 131 10^3/uL (150-450); RED BLOOD COUNT 4.27 10^6/uL (4.00-5.40)
[2020-09-05 17:48] LABS: INR 1.11; PROTHROMBIN TIME 14.5 SECONDS (12.5-14.3)
[2020-09-05 17:49] LABS: PARTIAL THROMBOPLASTIN TIME 28.5 SECONDS (24.2-38.5)
--- OUTSIDE RECORDS SUMMARY | 2020-09-05 17:57 | CCD ---
Author Author [facility] Organization [facility] Address Unknown Phone Unavailable Care Team Providers Care Calculation Clerk Name Role Phone Erickson ATKINSON MD Unavailable [...] is protected by Article 27-F of the [facility] Public Health law. If you continue you may have access to information: Regarding HIV / AIDS; Provided by facilities licensed or operated by the [facility] Office of Mental Health; or Provided by the [facility] Office for People With Developmental Disabilities. If such information is present, then the following [facility] mandated warning applies: This information has [...] law may result in a fine or correction sentence or both. A general authorization for the release of medical or other information is NOT sufficient authorization for further disc losure. Allergies and Adverse Reactions Type Description Substance Reaction Status Data Source(s ) Drug Class NO KNOWN ALLERGIES NO KNOWN ALLERGIES [facility] Encounters Encounter Providers Location Date Indications Data Source(s ) Emergency Attender: CORIN ATKINSON MD [id number] 05/17 12:00:00 AM EST - 06/07/2020 07:50:00 AM EST Nontraumatic subarachnoid hemorrhage, unspecified [facility] Nontraumatic subarachnoid hemorrhage, un specified Patient discharged. Outpatient 06/06/2020 12:24:00 AM EST LLE pain [facility] LLE pain Outpatient Admitter: Neil Fergusoneferrer: Neil Gil 04/12/2020 12:00:00 AM EDT Solitary pulmonary nodule [facility] Solitary pulmonary nodule Outpatient Admitter: Neil Fergusoneferrer: Neil Gil 03/31/2020 12:00:00 AM EDT - 03/31/2020 11:59:00 PM EDT Malignant neoplasm of unspecified part o f right bronchus or lung [facility] Malignant neoplasm of unspecified part o f right bronchus or lung Outpatient [facility] [id number] 07/24/2019 12:00:00 AM EST - 07/24/2019 12:00:00 AM EST eCW3 ([facility]) Immunizations Vaccine Date Status Description Data Source(s) New in 2011. IIV4 05/11/2020 02:07:00 PM EDT completed eCW3 ([facility]) New in 2011. IIV4 05/11/2020 02:07:00 PM EDT completed eCW3 ([facility]) Medications Medication Brand Name Start Date [...] mg from all sources in 24 hours.
[facility] Medication administered onsite iohexol (OMNIPAQUE) 350 MG/ML contrast injection 100 mL [id number] 06/07/2020 03:30:00 AM EST 100 mL Given by IV completed 100 mL, Given by IV, 1 TIME IMAGING, Sun06/07/20 at 0330, For 1 dose [facility] Medication administered onsite Hydrochlorothiazide 50 MG Oral Tablet hy droCHLOROthiazide 50 MG Oral Tablet (HYDRODIURIL) hydroCHLOROthiazide 50 MG Oral Tablet (HYDRODIURIL) 12:00:00 AM EDT active [facility] Albuterol Sulfate HFA 108 (90 Base) MCG/ ACT Inhalation Aerosol Solution (PROVENTIL HFA) 3865-8664-01 05/11/2020 12:00:00 AM EDT [facility] letrozole 2.5 MG Oral Tablet Letrozole 2.5 MG Letrozole 2.5 MG 05/11/2020 12:00:00 AM EDT 1.0 {tablet} active Le trozole 2.5 MG eCW3 ([facility]) letrozole 2.5 MG Oral Tablet Letrozole 2.5 MG Letrozole 2.5 MG 05/11/2020 12:00:00 AM EDT 1.0 {tablet} active Le trozole 2.5 MG eCW3 ([facility]) 2.5 mg 04/16/2020 12:00:00 AM EDT [...] {tablet_as_needed} active A cetaminophen 500 MG eCW3 ([facility]) Acetaminophen 500 MG Oral Tablet Acetaminophen 500 MG 2019 12:00:00 AM EDT 1.0 {tablet_as_needed} active A cetaminophen 500 MG eCW3 ([facility]) Blood Pressure Monitor - Blood Pressure Monitor - 12/31/2019 12:00: 00 AM EDT active Blood Pressure Monitor - eCW3 ([facility]) Blood Pressure Monitor - Blood Pressure Monitor - 12/31/2019 12:00: 00 AM EDT active Blood Pressure Monitor - eCW3 ([facility]) Acetaminophen 500 MG Oral Tablet Acetaminophen 500 MG 2019 12:00:00 AM EDT 1.0 {tablet_as_needed} active A cetaminophen 500 MG eCW3 ([facility]) Blood Pressure Monitor - Blood Pressure Monitor - 12/31/2019 12:00: 00 AM EDT active Blood Pressure Monitor - eCW3 ([facility]) Acetaminophen 500 MG Oral Tablet Acetaminophen 500 MG 2019 12:00:00 AM EDT 1.0 {tablet_as_needed} active A cetaminophen 500 MG eCW3 ([facility]) Blood Pressure Monitor - Blood Pressure Monitor - 12/31/2019 12:00: 00 AM EDT active Blood Pressure Monitor - eCW3 ([facility]) Blood Pressure Monitor - Blood Pressure Monitor - 12/31/2019 12:00: 00 AM EDT active Blood Pressure Monitor - eCW3 ([facility]) Blood Pressure Monitor - Blood Pressure Monitor - 12/31/2019 12:00: 00 AM EDT active Blood Pressure Monitor - eCW3 ([facility]) Potassium Chloride 10 MEQ Extended Release Oral Capsul e Potassium Chloride 10 MEQ 12/11/2019 12:00:00 AM EDT 1.0 {capsule_with_food} active Potassium Chloride 10 MEQ eCW3 ([facility]) Potassium Chloride 10 MEQ Extended Release Oral Capsul e Potassium Chloride 10 MEQ 12/11/2019 12:00:00 AM EDT 1.0 {capsule_with_food} active Potassium Chloride 10 MEQ eCW3 ([facility]) Potassium Chloride 10 MEQ Extended Release Oral Capsul e Potassium Chloride 10 MEQ 12/11/2019 12:00:00 AM EDT 1.0 {capsule_with_food} active Potassium Chloride 10 MEQ eCW3 ([facility]) Potassium Chloride 10 MEQ Extended Release Oral Capsul e Potassium Chloride 10 MEQ 12/11/2019 12:00:00 AM EDT 1.0 {capsule_with_food} active Potassium Chloride 10 MEQ eCW3 ([facility]) Potassium Chloride 10 MEQ Extended Release Oral Capsul e Potassium Chloride 10 MEQ 12/11/2019 12:00:00 AM EDT 1.0 {capsule_with_food} active Potassium Chloride 10 MEQ eCW3 ([facility]) Potassium Chloride 10 MEQ Extended Release Oral Capsul e Potassium Chloride 10 MEQ 12/11/2019 12:00:00 AM EDT 1.0 {capsule_with_food} active Potassium Chloride 10 MEQ eCW3 ([facility]) Metronidazole 500 MG Oral Tablet Metronidazole 500 MG 2019 12:00:00 AM EDT 4.0 {tablet} active Metronidazo le 500 MG eCW3 ([facility]) Metronidazole 500 MG Oral Tablet Metronidazole 500 MG 2019 12:00:00 AM EDT 4.0 {tablet} active Metronidazo le 500 MG eCW3 ([facility]) Metronidazole 500 MG Oral Tablet Metronidazole 500 MG 2019 12:00:00 AM EDT 4.0 {tablet} active Metronidazo le 500 MG eCW3 ([facility]) Metronidazole 500 MG Oral Tablet Metronidazole 500 MG 2019 12:00:00 AM EDT 4.0 {tablet} active Metronidazo le 500 MG eCW3 ([facility]) Metronidazole 500 MG Oral Tablet Metronidazole 500 MG 2019 12:00:00 AM EDT 4.0 {tablet} active Metronidazo le 500 MG eCW3 ([facility]) Metronidazole 500 MG Oral Tablet Metronidazole 500 MG 2019 12:00:00 AM EDT 4.0 {tablet} active Metronidazo le 500 MG eCW3 ([facility]) tramadol hydrochloride 50 MG Oral Tablet Tramadol HCl 50 MG Tramadol HCl 50 MG 07/24/2019 12:00:00 AM EST 1.0 {tablet_as_needed} active Tramadol HCl 50 MG eCW3 ([facility]) tramadol hydrochloride 50 MG Oral Tablet Tramadol HCl 50 MG Tramadol HCl 50 MG 07/24/2019 12:00:00 AM EST 1.0 {tablet_as_needed} active Tramadol HCl 50 MG eCW3 ([facility]) tramadol hydrochloride 50 MG Oral Tablet Tramadol HCl 50 MG Tramadol HCl 50 MG 07/24/2019 12:00:00 AM EST 1.0 {tablet_as_needed} active Tramadol HCl 50 MG eCW3 ([facility]) tramadol hydrochloride 50 MG Oral Tablet Tramadol HCl 50 MG Tramadol HCl 50 MG 07/24/2019 12:00:00 AM EST 1.0 {tablet_as_needed} active Tramadol HCl 50 MG eCW3 ([facility]) tramadol hydrochloride 50 MG Oral Tablet Tramadol HCl 50 MG Tramadol HCl 50 MG 07/24/2019 12:00:00 AM EST 1.0 {tablet_as_needed} active Tramadol HCl 50 MG eCW3 ([facility]) tramadol hydrochloride 50 MG Oral Tablet Tramadol HCl 50 MG Tramadol HCl 50 MG 07/24/2019 12:00:00 AM EST 1.0 {tablet_as_needed} active Tramadol HCl 50 MG eCW3 ([facility]) tramadol hydrochloride 50 MG Oral Tablet Tramadol HCl 50 MG Tramadol HCl 50 MG 07/24/2019 12:00:00 AM EST 1.0 {tablet_as_needed} active Tramadol HCl 50 MG eCW3 ([facility]) Acetaminophen 500 MG Oral Tablet Acetaminophen 500 MG 2018 12:00:00 AM EST 1.0 {tablet_as_needed} active A cetaminophen 500 MG eCW3 ([facility]) tizanidine 4 MG Oral Tablet Tizanidine HCl 4 MG Tizanidine H Cl 4 MG 11/28/2017 12:00:00 AM EDT 1.0 {tablet_as_needed} active Tizanidine HCl 4 MG eCW3 ([facility]) Insurance Providers Payer name Policy type / Coverage type Policy ID Covered green party ID Covered green party's relationship to magana Policy Magana Plan Information [employer] [facility] [id number] SP [id number] [employer] [facility] [id number] SP [id number] [facility] PH[facility] [id number] [id number] MGD I [id number] Self [id number] EMEDNY [id number] SP [id number] MEDICARE [id number] SP [id number] Problems, Conditions, and Diagnoses Code Display Name Description Problem Type Effective Dates Data Source(s) N18.3 CKD (chronic kidney disease) stage 3, GF R 30-59 ml/min CKD (chronic kidney disease) stage 3, GFR 30-59 ml/min Problem 12/10/2019 12:00:00 AM ED T eCW3 ([facility]) M54.5 Acute midline low back pain without scia sue Acute midline low back pain without sciatica Problem 11/13/2019 12:00:00 AM EDT eCW3 ([facility]) M54.5 Acute midline low back pain without scia use Acute midline low back pain without sciatica Problem 11/13/2019 12:00:00 AM EDT eCW3 ([facility]) W22.09XA Striking against other stationary object , initial encounter Striking against other stationary object, initial encounter Diagnosis 01:25:00 AM [facility] S06.6X0A Traumatic subarachnoid hemor rhage without loss of consciousness, initial encounter Traumatic subarachnoid hemorrhage withou t loss of consciousness, initial encounter Diagnosis 06/07/2020 01:25:00 AM [facility] I60.9 Nontraumatic subarachnoid hemorrhage, un specified Nontraumatic subarachnoid hemorrhage, unspecified Diagnosis 06/07/2020 01:25:00 AM [facility] Brain Bleed Brain Bleed Diagnosis 06/07/2020 01:25:00 AM [facility] LLE pain LLE pain Diagnosis 06/06/2020 12:24:00 AM [facility] R91.1 Solitary pulmonary nodule Solitary pulmonary nodule Di agnosis 04/12/2020 02:56:00 PM [facility] C34.91 Malignant neoplasm of unspecified part o f right bronchus or lung Malignant neoplasm of unspecified part of right bronchus or lung Diagnosis 03/31/2020 10:12:00 AM [facility] Surgeries/Procedures Procedure Description Date Indications Data Source(s) CT ANGIOGRAPHY HEAD W/CONTRAST/NONCONTRAST CT ANGIOGRAPHY HEAD [id number] STAT 06/07/2020 3:24 AM EST 06/07/2020 03:24:22 AM [facility] PARTIAL THROMBOPLASTIN TIME (PTT) PARTIAL THROMBOPLASTIN TIME ( PTT) Routine 06/07/2020 2:06 AM EST 06/07/2020 02:06:00 AM [facility] PROTHROMBIN TIME PROTIME INR Routine 06/07/2020 2:06 AM EST 06/07/2020 02:06:00 AM [facility] BLOOD COUNT COMPLETE AUTO&AUTO DIFRNTL WBC COUNT CBC AND DIFFER ENTIAL Routine 06/07/2020 2:06 AM EST 06/07/2020 02:06:00 AM [facility] HEPATIC FUNCTION PANEL HEPATIC FUNCTION PANEL A STAT 0 2:06 AM EST 06/07/2020 02:06:00 AM [facility] BASIC METABOLIC PANEL CALCIUM TOTAL BASIC METABOLIC PANEL STAT 06/07/2020 2:06 AM EST 06/07/2020 02:06:00 AM [facility] Results ID Date Data Source [id number] 07/03/2020 09:09:00 AM EST [facility] Name Value Range Interpretation Code Description Data Jacqueline rce(s) Supporting Document(s) SARS coronavirus 2 RNA [Presence] in Res piratory specimen by [place] with probe detection [facility] This lab was ordered by [facility] a nd reported by [facility]. ID Date Data Source [id number] 06/17/2020 03:55:16 PM [facility] Name Value Range Interpretation Code Description Data Jacqueline rce(s) Supporting Document(s) ED Provider Note [facility] IEXLNm3aMvLYKaEn65/LUBjjEGFkd8OtZZjnWXa5SZvkMQFcD2OsDAW9mJ7qKFD9PFyVEqIxYvXtNzJd [facility] [file] DjvBRuAHu4V85noLLgPEuiSI7RGUI+Quinton+Qy6EYQHcIMKlEWQrOrUjYXRGMtJbQ5OfK9SOp1EtQ2RhNX 38wTdsqnMvROonVQ1ZCB7iUJMnBZQZLC9DxHZloJ8z hhSqAJUuIJKYHuBxB44cfQKcDKQzPLM5JUPrVx4ZCVHvA4KkcfRueHwxvvFeHXUyRMIVDY7FUTmsshAy hEGxmJktGK61aWlqDG7EXt5VTgLgZL7rrw1JwKZyHd5SNQO0FN0XZRPfCQZnQQQaFOM5ARKdDjVxVIur PCZiRRQlKES3UHWuCYCpET2UKvQzTHMvQSLzKXHrAW HzJQNuck0UXYQcAWC6Vrf5IiEjWJGnQMRvUVbkNLQpCYPdDUU4BEUmAYFlCK2AOgVoVDSlXGN1VVkoAJ MpMUYwwb6HDBVzMWNzYcI2NuWhATJzTATkJZjhVLGzMMH2IqB7LHPuOWBsPV0MLzDyBCFiIDO0TkGyXO QqCCCeig3YJCWiZBTzVYx0FlBmYQWaHYJkAEqhUUKu CVL1WMk5SVKvTYReJQ3PNqExISLiLEY7CXzxZOZwAZNgnb6EOFQqNJRuLQs8ANFaUTXkRQNwBObiAWNh QYD4DlV1XXOzFCWfPX7FVxMjARCmJMH6UZToKMUlJLDiyp0HOVVkJENnJpV9NAEjNEBcMTHjSVryWGWk UZE8DUn0VDUdBXCsXQ6VUiOxLFFfNwBzYrXpHVKrKW Hyvt6NIZUdPIBeYTR3OlInUDYqDFVqJXzhZBIfHESbLpBcYSBuNTQjUU8WSlMoMRTeLoW9MgcdIBQlDJ Gwxa8BQUFmTSBsKPX6CgGmYJZuDTYhFGjuWNXpOGU4EdehWQTdJLRiNB3HCsVaJTWrKhG9NUWhDQNeZF Kuyt1IFYFjIROeIqu4IOXzJEUgMJKjOCjxLCYlLVU4 XVEjGYUlCPFvFD3XMtJzVUDuIqmeHPPvCDMuUEInar6ZQIBeMTRhDFS9YNAvKNPkTZFeFGfgZFMcHDS8 VJcjUKTeSBPqRU5AHhGdXUSkMfu3HXYyBTBgFTVpvu2XIRQqLUExXAKgMPHgHVAtDKDzJDrcJZJjIRB0 QRBrPSXmYUGpBO8LFuWpQJCeUTVsHNqrOGUfCDWekf 7QHSNuSFV5ATDzBTJySCFtCBWoBDnxDSOrJKSdIxU3FYSzVJRxXY8FVjJrVWJoZFX5CaOaQCFlPXFkbz 8YORWuFAJ2AxFkUKYuYWInHJLnUCjiDVNuJPFiKQY2RUNiOMMbKR1AKuHjSSJrCTNvNfbgNPBoBLVlyi 6FJAUoCNO5VTV9JOVoHFWwUIBnXDhqYXLjHST7Bpoy TQKkPUCyEB7EPhNaTCSlFQQ4PhEiKSTiPNHkeu3MIGZkPCJ4PHU4QYZnDAXqMFFfUVeaSBHlPTQ5YKYx FFGsELMrHT6SMmTaARWvOTD9NFZgPEVzMKYnrz1KrSBiyFralm4ODObMDk6DnQjuEEL4NYedGq4vyPE6 LTFrUNGBKh8EoaHjRHMdISZHOBqwMQSwZGFaQOU9HG N7Lcj1SQGyXTV8LXIpNoSsChI8VcprLVj5GnB3F9GcFYq3QBJsJNEoJBI1DvhdECJ6XlJiXoxiQ5QnNW Y+CJ9gQXp+Tc3Fo6NfqjC5pqHxVVo7BRVcQH9WOTJMG8EIHr== ID Date Data Source [id number] 06/07/2020 10:07:07 AM [facility] Name Value Range Interpretation Code Description Data Jacqueline rce(s) Supporting Document(s) Consultation [facility] RLGWFd7yAtSVMbCx55/FJVuaVKBrq0JePSbsQVm2SExkAHHzW9XtEEI0lH0yTFS7TGaPQsPqYfSzGZFq lbm [file] MTI+PW7jMWj+Nj3Ed9YzwcE7goTjQGzxNJQcVx8KSCITI2MHKo== ID Date Data Source [id number] 06/07/2020 09:32:[address] [facility] [address] ANGIOGRAPHY HEAD [id number] RESULTInt erpreted by:Carlene Garay, MDCT ANGIOGRAPHY HEAD [id number] INDICATION: Please evaluate for Sinus venous thrombosis.TECHNIQUE: [...] or dissection. The intracranial arteries of the pauma of [place] are patent without evidence of large vessel occlusion, arteriovenous malformation, dissection, or aneurysm.IMPRESSION: 1. Punctate hyperdense focus in the left parietal lobe, concerning for subarachnoid hemorrhage. Given differences in technique, there is no significant interval change from prior exam.2. Patent dural venous sinuses without evidence of thrombosis.3. No large vessel occlusion in the major intracranial arteries of the pauma of [place].Assessment of stenosis of the internal [...] Blood by Automated count 8.2 10*3/uL 4-10 [facility] Erythrocytes [#/volume] in Blood by Automated count 3.86 10*6/uL 4.1- 5.3 L [facility] Hemoglobin [Mass/volume] in Blood 12.2 g/dL 11.5-15.5 [facility] Hematocrit [Volume Fraction] of Blood by Automated count 36.1 % 3 6-45 [facility] Erythrocyte mean corpuscular volume [Entitic volume] by Auto mated count 93.7 fL 80-96 [facility] Erythrocyte mean corpuscular hemoglobin [Entitic mass] by Automated count 31.7 pg 27-33 [facility] Erythrocyte mean corpuscular hemoglobin concentration [Mass/volume] by Automated count 33.8 g/dL 32.0-36.0 [facility] Erythrocyte distribution width [Ratio] by Automated count 13.2 % 11.5-14.5 [facility] Platelets [#/volume] in Blood by Automated count 205 10*3/uL 150-400 [facility] Differential cell count method - Blood [facility] Neutrophils/100 leukocytes in Blood by Automated count 60 % [facility] Lymphocytes/100 leukocytes in Blood by Automated count 27 % [facility] Monocytes/100 leukocytes in Blood by Automated count 11 % [facility] Eosinophils/100 leukocytes in Blood by Automated count 1 % [facility] Basophils/100 leukocytes in Blood by Automated count 1 % [facility] Neutrophils [#/volume] in Blood by Automated count 4.90 10*3/uL 1.8-7 .0 [facility] Lymphocytes [#/volume] in Blood by Automated count 2.22 10*3/uL 1.2-4 .0 [facility] Monocytes [#/volume] in Blood by Automated count 0.92 10*3/uL 0-0.8 H [facility] Eosinophils [#/volume] in Blood by Automated count 0.09 10*3/uL 0-0.5 [facility] Basophils [#/volume] in Blood by Automated count 0.04 10*3/uL 0-0.2 [facility] Nucleated erythrocytes/100 leukocytes [Ratio] in Blood by Automated count 0 /100{WBCs} 0-0 [facility] ID Date Data Source [id number] 06/07/2020 02:30:[address] [facility] Name Value Range Interpretation Code Description Data Jacqueline rce(s) Supporting Document(s) Prothrombin time (PT) 14.2 s 12.5-14.9 [facility] INR in Platelet poor plasma by Coagulation assay 1.09 [facility] Routine intensity oral anticoagulation I NR is typically 2.0-3.0. Target INR must be clinically individualized. ID Date Data Source [id number] 06/07/2020 02:30:34 AM [facility] Name Value Range Interpretation Code Description Data Jacquelien rce(s) Supporting Document(s) aPTT in Platelet poor plasma by Coagulation assay 29.4 s 24.0-33. 0 [facility] ID Date Data Source [id number] 06/07/2020 02:43:18 AM [facility] Name Value Range Interpretation Code Description Data Jacqueline rce(s) Supporting Document(s) Albumin [Mass/volume] in Serum or Plasma by Bromocresol green (BCG) dye binding method 3.7 g/dL 3.5-5.2 [facility] al Bilirubin.total [Mass/volume] in Serum or Plasma 0.6 mg/dL <1.2 [facility] Bilirubin.direct [Mass/volume] in Serum or Plasma 0.2 mg/dL <0.3 [facility] Alkaline phosphatase [Enzymatic activity/volume] in Serum or Plasma 239 U/L 35-104 H [facility] Aspartate aminotransferase [Enzymatic activity/volume] in Serum or Plasma 27 U/L <32 [facility] Alanine aminotransferase [Enzymatic activity/volume] in Seru m or Plasma 9 U/L <33 [facility] Protein [Mass/volume] in Serum or Plasma 7.7 g/dL 6.4-8.3 [facility] ID Date Data Source [id number] 06/07/2020 02:43:18 AM [facility] Value Range Interpretation Code Description Data Jacqueline rce(s) Supporting Document(s) Bicarbonate [Moles/volume] in Serum 27 mmol/L 22-29 [facility] Chloride [Moles/volume] in Serum or Plasma 99 mmol/L 98-107 [facility] Creatinine [Mass/volume] in Serum or Plasma 1.17 mg/dL 0.50-0.90 H [facility] Glucose [Mass/volume] in Serum or Plasma 122 mg/dL 70-140 [facility] Potassium [Moles/volume] in Serum or Plasma 3.1 mmol/L 3.4-5.1 L [facility] Sodium [Moles/volume] in Serum or Plasma 135 mmol/L 136-145 L [facility] Urea nitrogen [Mass/volume] in Serum or Plasma 26 mg/dL 8-23 H [facility] Anion gap 3 in Serum or Plasma 9 mmol/L 8-15 [facility] Osmolality of Serum or Plasma by calculation 286 mosm/kg 275-300 [facility] Creatinine/Urea nitrogen [Mass Ratio] in Serum or Plasma 22 [facility] Calcium [Mass/volume] in Serum or Plasma 9.0 mg/dL 8.8-10.2 [facility] Glomerular filtration rate/1.73 sq M pre dicted among non-blacks [Volume Rate/Area] in Serum or Plasma by Creatinine-based formula (MDRD) 49 mL/min/1.73m2 >60 L [facility] Glomerular filtration rate/1.73 sq M pre dicted among blacks [Volume Rate/Area] in Serum or Plasma by Creatinine-based formula (MDRD) 57 mL/min/1.73m2 >60 L [facility] ID Date Data Source [id number] 05/12/2020 12:00:00 AM EDT [facility] Name Value Range Interpretation Code Description Data Jacqueline rce(s) Supporting Document(s) 2019-nCoV RNA XXX OH+probe-Imp [facility] This lab was ordered by [facility] and reported by [facility]. ID Date Data Source [id number] 04/13/2020 05:48:00 PM EDT [facility] Surgical Pathology Report See Addendum B Taurus: GITA HOOVERRN: [id number] Number: [id number] Date: 04/12/2020 00:00Received Date: 04/12/2020 14:58Physician(s): NEIL GIL MD VYAS, SHIKHAR G,MDSpecimen(s) ReceivedA: Slides received for consultation, CCClinical HistoryHistory of breast cancer. Right lung nodule biopsy with "metastaticadenocarcinoma of mammary origin". Tumor cells reported to be HGCW3puikewtg. For ER, SC, and HER2 IHC, reflex to HER FISH.Addendum 04/27/2020 RESULTS OF MOLECULAR ASSAYS: Test name: HER2 by FISHTest interpretation: POSITIVE FOR HER2 (ERBB2) GENE AMPLIFICATION. ([id number] for full report)./pmw Addendum Electronically Signed By: Jose Mccall MD; 04/27/2020 DiagnosisIMMUNOHISTOCHEMISTRY, RIGHT LUNG NODULE, BIOPSY ([id number]; 03/26/20): ESTROGEN RECEPTORS: Positive (strong intensity in 100% of tumor cells).PROGESTERONE RECEPTORS: Positive (moderate intensity in 70% of tumorcells).HER2: Equivocal (2+); HER2 FISH pending (addendum report will follow).Electronically Signed By Jose Mccall MD;, Attending Pathologist04/13/2020 17:48:37 Unless 'gross-only' is specified, the final diagnosis is based on amicroscopic examination of account maintenance representative sections of tissue.Gross DescriptionReceived [facility] [place] is 1 paraffinblock, labeled [id number] with the corresponding pathology report. This report may include one or more immunohistochemical stain results thatuse analyte specific reagents. All positive and negative controls havebeen reviewed by the attending pathologist and are satisfactory. The testswere developed and their performance characteristics determined by [facility] Pathology department. They have not been cleared or approved by the USFood and Drug Administration. The FDA has determined that such clearanceor approval is not necessary. Name Value Range Interpretation Code Description Data Jacqueline rce(s) Supporting Document(s) ID Date Data Source [id number] 04/23/2020 06:38:00 PM [facility] Anatomic Molecular Pathology ReportName: GITA HOOVERRN: [id number] Number: [id number] Date: 04/12/2020 00:00Received Date: 04/15/2020 11:15Physician(s): NEIL GIL MD VYAS, SHIKHAR G,MDSpecimen(s) ReceivedA: Slides received for consultation, CC, Formalin Block [id number] from [facility] in [place], [place], Bza1Vja by FISHDiagnosisTEST: HER2 (ERBB2) by FISH (Fluorescence in situ Hybridization ).RESULT: RATIO of HER2 (ERBB2) to CEP17 (D17Z1) is 2.2Average HER2 (ERBB2) copy number per cell is 7.4International System for Cytogenetic Nomenclature: nuc darren(G12N7r4), 3~16(ERBB2)[80]INTERPRETATION:POSITIVE FOR HER2 (ERBB2) GENE AMPLIFICATION.The average of HER2 and CEP17 copies per cell in breast cancer is 7.4 and3.3 respectively, which makes a ratio of HER2 to CEP17 2.2. Based oncurrent ASCO/CAP guideline recommendations for (Arch Pathol Lab Med. doi:10.5858/arpa.6854-6801-PX), a ratio of HER2 to CEP17 that [...] performed on paraffin embedded breast cancerutilizing the [employer] HER2 DNA Probe Kit. This is a combination, directlabel, dual color detection system utilizing 2 probes: 1) HER2 (17q11.2 - q12, 190 kb, encompassing the gene) with SpectrumOrange label, and 2) CEP17 (17p11.1- q11.1, chromosome 17 centromere) with SpectrumGreen label. Tumor cells with no HER2 amplification have, on average, 2 orange and 2green signals. Amplification will result in multiple copies of the SVP3ebeg, expressed as multiple orange signals. Hybridization is [...] Special Procedures Laboratory in the Departmentof Pathology, [facility]. REFERENCES1. CANDACE Ron, [place] Radha, AVELINO Johnson, et al. Recommendations for humanepidermal growth factor receptor 2 testing in breast cancer. Arch PatholLab Med, 2014; 138:241-256.2. Jordyn Guillaume and PAVAN Engel. Updates in HER2 Testing in GastricCancer. J Gastroint Dig Syst 2013, 3:2. This report may include one or more immunohistochemical stain results thatuse analyte specific reagents. All positive and negative controls havebeen reviewed by the attending pathologist and are satisfactory. The testswere developed and their performance characteristics determined by [facility] Pathology department. They have not been cleared or approved by the USFood and Drug Administration. The FDA has determined that such clearanceor approval is not necessary. Name Value Range Interpretation Code Description Data Jacqueline rce(s) Supporting Document(s) ID Date Data Source [id number] 04/02/2020 06:14:00 PM [facility] Surgical Pathology ReportName: GITA HOOVERRJamil: [id number] Number: [id number] Date: 03/31/2020 00:00Received Date: 03/31/2020 10:14Physician(s): NEIL GIL MD VYAS, SHIKHAR G,MDSpecimen(s) ReceivedA: Material received for consultation, GDLRClinical HistorySecond opinion.DiagnosisLUNG, RIGHT, NEEDLE BIOPSY ([id number], 03/26/20): METASTATIC ADENOCARCINOMA.(See Microscopic Description).Electronically Signed By Jovan Garcia M.D., Attending Pathologist04/02/2020 18:14:09 [facility] [place] [place], are 1 H and Estained slide and 8 specially stained slides, 1 paraffin block, [id number], with the corresponding pathology report. A abdomen [...] developed and their performance characteristics determined by [facility] Pathology department. They have not been cleared or approved by the USFood and Drug Administration. The FDA has determined that such clearanceor approval is not necessary. Name Value Range Interpretation Code Description Data Jacqueline rce(s) Supporting Document(s) ID Date Data Source [id number] 03/31/2020 07:05:00 PM EDT [facility] Name Value Range Interpretation Code Description Data Jacqueline rce(s) Supporting Document(s) Written Authorization [facility] Written Authorization Received.Authoriza tion received from [facility] [id number] by Laura Mcintyre ID Date Data Source [id number] 04/29/2020 02:06:00 PM EDT [facility] Name Value [...] and pancreatic cancer. Guidelines from [facility] Network(R) (NCCN(R))recommend considering germline genetic testing forhigh-penetrance breast and/or ovarian cancer genes(including, but not limited to, BRCA1/2, CDH1, PALB2, PTEN,and TP53) in patients with any of the criteria in the tablebelow. To discuss comprehensive genetic testing for breast,ovarian, and pancreatic cancer genes, an [employer] St[employer] Belt Sander Operator is available at [phone].Breast cancer diagnosed Ovarian cancer at any age<= [...] as recommendations for testing family members. Toaccess [facility] please [email or web address] or call [phone] ([phone]). METHODS AND LIMITATIONS [facility] Next-generation sequencing: Genomic charlie ons of interest areselected using a custom capture reagent for targetenrichment and sequenced via the [employer](R) [employer] Fortress sequencing platform. Regions of interest includeall exons and intron/exon junctions (+/-20 nucleotides) ofthe BRCA1 (NM_007294.3) and BRCA2 (NM_000059.3) genes.Sequencing reads are aligned with the human genomereference GRCh37/hg19 build. Minimum mean coverage is 40X.Any segment failing minimum read depth coverage is rescuedby bi-directional [place] sequencing to complete sequenceanalysis. Variants, including SNVs and CNVs, are identifiedusing a custom bioinformatics pipeline.Reported variants: Pathogenic and likely pathogenicvariants and variants of uncertain significance (VUS) arereported. Non-deletion variants are specified using thenumbering and nomenclature recommended by the Human GenomeVariation Society (HGVS, http://www.hgvs.org/). Benignvariants are not reported. Variant classification andconfirmation are consistent with ACMG standards andguidelines (Chandler, PMID:36805263; Joesphine, PMID:78567260).Detailed variant classification information is availableupon request. A [...] intragenic interactionsbetween variants. Variant classification and/orinterpretation may change release manager time if more informationbecomes available. False positive [...] was developed and its performance characteristicsdetermined by [employer]. It has not been cleared or approvedby the Food and Drug Administration. REFERENCES [facility] 1. NCCN Genetic/Familial High Risk Asses sment: Breast,Ovarian, and Pancreatic. Version 1.2020.2. Raúl et al. BRCA1- and BRCA2-AssociatedHereditary Breast and Ovarian Cancer. GeneReviews, [id number]. PMID: [id number]. RELEASED BY [employer] Clarissa Damico, MS, CGC, MSCR, under the direction ofDebbie Mcbride, PhD, [facility] PDF . [facility] ID Date Data Source [id number] 03/31/2020 03:05:00 PM EDT [facility] Name Value Range Interpretation Code Description Data Jacqueline rce(s) Supporting Document(s) Request Problem [facility] Test cancelled at client's request. TEST: [id number] Liver Cancer Monitor Profile Authorized by: Lani Rosado at your facility ID Date Data Source HIV RNA, Real Time PCR (Graph) [id number] 07/24/2019 12:00:00 AM EST eCW3 ([facility]) Name Value Range Interpretation Code Description Data Jacqueline rce(s) Supporting Document(s) HIV 1 RNA [#/volume] (viral load) in Ser um or Plasma by Probe and target amplification method 40 HIV-1 RNA by PCR eCW3 ([facility]) HIV 1 RNA [Log #/volume] (viral load) in Plasma by Probe and target amplification method 1.602 log10 HIV-1 RNA eCW3 ([facility]) ID Date Data Source CD4/CD8 Ratio Profile [id number] 07/24/2019 12:00:00 AM EST eCW3 ([facility]) Name Value Range Interpretation Code Description Data Jacqueline rce(s) Supporting Document(s) Deprecated CD4 cells [#/volume] in Blood 393 082-6010 Absolute CD 4 [place] eCW3 ([facility]) Deprecated CD8 cells [#/volume] in Blood 3207 109-897 Abs. CD 8 Suppressor eCW3 ([facility]) Deprecated CD4 cells/100 cells in Blood 16.3 30.8-58.5 % CD 4 Pos. Lymph. eCW3 ([facility]) Deprecated CD8 cells/100 cells in Blood 55.3 12.0-35.5 % CD 8 Pos. Lymph. eCW3 ([facility]) Leukocytes [#/volume] in Blood by Automated count 15.2 3.4-10.8 WBC eCW3 ([facility]) Deprecated CD4 cells/CD8 Cells [# Ratio] in Blood 0.29 0.92 -3.72 CD4/CD8 Ratio eCW3 ([facility]) Erythrocytes [#/volume] in Blood by Automated count 4.93 3.77-5 .28 RBC eCW3 ([facility]) Erythrocyte mean corpuscular volume [Entitic volume] by Auto mated count 91 79-97 MCV eCW3 ([facility]) Erythrocyte mean corpuscular hemoglobin [Entitic mass] by Au tomated count 31.2 26.6-33.0 MCH eCW3 ([facility]) Hemoglobin [Mass/volume] in Blood 15.4 11.1-15.9 He moglobin eCW3 ([facility]) Hematocrit [Volume Fraction] of Blood by Automated count 44.9 34.0-46.6 Hematocrit eCW3 ([facility]) Neutrophils/100 leukocytes in Blood by Automated count 52 Not Estab. Neutrophils eCW3 ([facility]) Erythrocyte distribution width [Ratio] by Automated count 14.4 11.7-15.4 RDW eCW3 ([facility]) Erythrocyte mean corpuscular hemoglobin concentration [Mass/volume] by Automated count 34.3 31.5-35.7 MCHC eCW3 ([facility]) Platelets [#/volume] in Blood by Automated count 216 150-450 Platelets eCW3 ([facility]) Eosinophils/100 leukocytes in Blood by Automated count 1 Not Estab. Eos eCW3 ([facility]) Lymphocytes/100 leukocytes in Blood by Automated count 38 Not Estab. Lymphs eCW3 ([facility]) Basophils/100 leukocytes in Blood by Automated count 0 Not E stab. Basos eCW3 ([facility]) Monocytes/100 leukocytes in Blood by Automated count 9 Not E stab. Monocytes eCW3 ([facility]) Neutrophils [#/volume] in Blood by Automated count 7.9 1.4 -7.0 Neutrophils (Absolute) eCW3 ([facility]) Immature cells [#/volume] in Blood I mmature Cells eCW3 ([facility]) Lymphocytes [#/volume] in Blood by Automated count 5.8 0.7 -3.1 Lymphs (Absolute) eCW3 ([facility]) Immature granulocytes/100 leukocytes in Blood Immature Granulocytes eCW3 ([facility]) Monocytes [#/volume] in Blood by Automated count 1.4 0.1-0 .9 Monocytes(Absolute) eCW3 ([facility]) Basophils [#/volume] in Blood by Automated count 0.0 0.0-0.2 Baso (Absolute) eCW3 ([facility]) Eosinophils [#/volume] in Blood by Automated count 0.2 0.0-0.4 Eos (Absolute) eCW3 ([facility]) Immature granulocytes [#/volume] in Blood Immature Grans (Abs) eCW3 ([facility]) Nucleated erythrocytes/100 leukocytes [Ratio] in Blood by Automated count NRBC eCW3 ([facility]) Morphology [Interpretation] in Blood Narrative Note: Hematology Comments: eCW3 ([facility]) ID Date Data Source Comp. Metabolic Panel (14) ([id number] 07/24/2019 12:00:00 AM EST eCW3 ([facility]) Name Value Range Interpretation Code Description Data Jacqueline rce(s) Supporting Document(s) Urea nitrogen [Mass/volume] in Serum or Plasma 17 8-27 BUN eCW3 ([facility]) Glucose [Mass/volume] in Serum or Plasma 110 65-99 Glucose eCW3 ([facility]) Creatinine [Mass/volume] in Serum or Plasma 1.46 0.57-1.00 Creatinine eCW3 ([facility]) eGFR If NonAfricn Am 39 >59 eGFR If NonAfri cn Am eCW3 ([facility]) eGFR If Africn Am 44 >59 eGFR If Africn Am eCW3 ([facility]) Sodium [Moles/volume] in Serum or Plasma 136 134-144 Sodium eCW3 ([facility]) Urea nitrogen/Creatinine [Mass Ratio] in Serum or Plasma 12 12-28 BUN/Creatinine Ratio eCW3 ([facility]) Chloride [Moles/volume] in Serum or Plasma 92 96-106 Chloride eCW3 ([facility]) Carbon dioxide, total [Moles/volume] in Serum or Plasma 25 20-29 Carbon Dioxide, Total eCW3 ([facility]) Potassium [Moles/volume] in Serum or Plasma 3.2 3.5-5.2 Potassium eCW3 ([facility]) Calcium [Mass/volume] in Serum or Plasma 10.3 8.7-10.3 Calcium eCW3 ([facility]) Globulin [Mass/volume] in Serum by calculation 4.9 1.5-4.5 Globulin, Total eCW3 ([facility]) Albumin [Mass/volume] in Serum or Plasma 4.8 3.6-4.8 Albumin eCW3 ([facility]) Protein [Mass/volume] in Serum or Plasma 9.7 6.0-8.5 Protein, Total eCW3 ([facility]) Alkaline phosphatase [Enzymatic activity/volume] in Serum or Mary sma 133 39-117 Alkaline Phosphatase eCW3 ([facility]) Bilirubin.total [Mass/volume] in Serum or Plasma 1.0 0.0-1.2 Bilirubin, Total eCW3 ([facility]) Albumin/Globulin [Mass Ratio] in Serum or Plasma 1.0 1.2-2.2 A/G Ratio eCW3 ([facility]) Aspartate aminotransferase [Enzymatic activity/volume] in Se rum or Plasma 50 0-40 AST (SGOT) eCW3 ([facility]) Alanine aminotransferase [Enzymatic activity/volume] in Serum or Plasma 25 0-32 ALT (SGPT) eCW3 ([facility]) ID Date Data Source Lipid Panel With LDL/HDL Ratio.1 07/24/2019 12:00:00 AM EST eCW3 ([facility]) Name Value Range Interpretation Code Description Data Jacqueline rce(s) Supporting Document(s) Cholesterol [Moles/volume] in Serum or Plasma 174 100-199 Cholesterol, Total eCW3 ([facility]) Triglyceride [Mass/volume] in Serum or Plasma 109 0-149 Triglycerides eCW3 ([facility]) Cholesterol in HDL [Mass/volume] in Serum or Plasma 44 >39 HDL Cholesterol eCW3 ([facility]) Cholesterol in VLDL [Mass/volume] in Serum or Plasma by calculation 22 5-40 VLDL Cholesterol Bhargav eCW3 ([facility]) Cholesterol in LDL [Mass/volume] in Serum or Plasma by calculation 108 0-99 LDL Cholesterol Calc eCW3 ([facility]) Cholesterol in LDL/Cholesterol in HDL [Mass Ratio] in Serum or Plasma 2.5 0.0-3.2 LDL/HDL Ratio eCW3 ([facility]) Laboratory comment [Text] in Report Narrative Comment: eCW3 ([facility]) ID Date Data Source RPR, Rfx Qn RPR/Confirm TITO ([id number] 07/24/2019 12:00:00 AM EST eCW3 ([facility]) Name Value Range Interpretation Code Description Data Jacqueline rce(s) Supporting Document(s) Reagin Ab [Presence] in Serum by VDRL Non Reactive Non Reactive RPR eCW3 ([facility]) Procedure Social History Code Duration Value Status Description Data Source(s ) Smoking 06/07/2020 12:00:00 AM EST Unknown if ever smoked comp leted Unknown if ever smoked [facility] Smoking 05/11/2020 12:00:00 AM EDT Never Smoker completed Never S moker eCW3 ([facility]) Smoking 05/11/2020 12:00:00 AM EDT Never Smoker completed Never S moker eCW3 ([facility]) Smoking 12/31/2019 12:00:00 AM EDT Never Smoker completed Never S moker eCW3 ([facility]) Smoking 12/31/2019 12:00:00 AM EDT Never Smoker completed Never S moker eCW3 ([facility]) Smoking 12/31/2019 12:00:00 AM EDT Never Smoker completed Never S moker eCW3 ([facility]) Smoking 12/31/2019 12:00:00 AM EDT Never Smoker completed Never S moker eCW3 ([facility]) Smoking 11/13/2019 12:00:00 AM EDT Never Smoker completed Never S moker eCW3 ([facility]) Smoking 07/24/2019 12:00:00 AM EST Never Smoker completed Never S moker eCW3 ([facility]) Vital Signs ID Date Data Source UNK Name Value Range Interpretation Code Description Data Source(s) Diastolic blood pressure 81 mm[Hg] 81 mm[Hg] eCW3 ([facility]) Systolic blood pressure 128 mm[Hg] 128 mm[Hg] e CW3 ([facility]) Body temperature 97.2 [degF] 97.2 [degF] eCW3 ( [facility]) Heart rate 18 /min 18 /min eCW3 ([facility]) Body mass index (BMI) [Ratio] 20.97 kg/m2 20.97 kg/m2 eCW3 ([facility]) Body weight 126 [lb_av] 126 [lb_av] eCW3 ([facility]) Body height [in_i] eCW3 ([facility]) ID Date Data Source [id number] 06/07/2020 01:24:30 AM [facility] Name Value Range Interpretation Code Description Data Source(s) TRANSFER FROM [facility] Patient Treatment Plan of Care Planned Activity Planned Date Details Description Data Source (s) letrozole 2.5 MG Oral Tablet 05/11/2020 12:00:00 AM EDT eCW3 ([facility]) Albuterol Sulfate HFA 108 (90 Base) MCG/ ACT Inhalation Aerosol Solution (PROVENTIL HFA) 05/11/2020 12:00:00 AM EDT [facility] Hydrochlorothiazide 50 MG Oral Tablet 05/11/2020 12:00:00 AM EDT [facility] letrozole 2.5 MG Oral Tablet 05/11/2020 12:00:00 AM EDT eCW3 ([facility]) Acetaminophen 500 MG Oral Tablet 12/31/2019 12:00:00 AM EDT eCW3 ([facility]) Blood Pressure Monitor - 12/31/2019 12:00:00 AM EDT eCW3 ([facility]) Acetaminophen 500 MG Oral Tablet 12/31/2019 12:00:00 AM EDT eCW3 ([facility]) Blood Pressure Monitor - 12/31/2019 12:00:00 AM EDT eCW3 ([facility]) Acetaminophen 500 MG Oral Tablet 12/31/2019 12:00:00 AM EDT eCW3 ([facility]) Blood Pressure Monitor - 12/31/2019 12:00:00 AM EDT eCW3 ([facility]) Acetaminophen 500 MG Oral Tablet 12/31/2019 12:00:00 AM EDT eCW3 ([facility]) Blood Pressure Monitor - 12/31/2019 12:00:00 AM EDT eCW3 ([facility]) Potassium Chloride 10 MEQ Extended Release Oral Capsul e 12/11/2019 12:00:00 AM EDT eCW3 ([facility]) Potassium Chloride 10 MEQ Extended Release Oral Capsul e 12/11/2019 12:00:00 AM EDT eCW3 ([facility]) tramadol hydrochloride 50 MG Oral Tablet 07/24/2019 12:00:00 AM EST eCW3 ([facility]) Acetaminophen 500 MG Oral Tablet 06/24/2019 12:00:00 AM EST eCW3 ([facility]) tizanidine 4 MG Oral Tablet 11/28/2017 12:00:00 AM EDT eCW3 ([facility])
[2020-09-05 17:58] LABS: BLOOD UREA NITROGEN 20 MG/DL (7-18); CARBON DIOXIDE LEVEL 29 MEQ/L (21-32); CHLORIDE LEVEL 104 MEQ/L (98-107); CREATININE FOR GFR 0.99 MG/DL (0.55-1.30); GLOMERULAR FILTRATION RATE > 60.0 (>45); GLUCOSE, FASTING 134 MG/DL (70-100); POTASSIUM SERUM 2.8 MEQ/L (3.5-5.1); SODIUM LEVEL 141 MEQ/L (136-145)
[2020-09-05 17:59] LABS: ALBUMIN 3.8 GM/DL (3.2-5.2); ALT/SGPT 36 U/L (12-78); BILIRUBIN,DIRECT 0.2 MG/DL (0.0-0.2); BILIRUBIN,TOTAL 0.6 MG/DL (0.2-1.0); CALCIUM LEVEL 8.8 MG/DL (8.8-10.2); CK-MB VALUE MASS < 1.0 NG/ML (<3.6); CPK CREATINE PHOSPHOKINASE 54 U/L (26-192); LIPASE 40 U/L (73-393); MB/CK RELATIVE INDEX 1.85 (< OR =4); TOTAL PROTEIN 7.5 GM/DL (6.4-8.2); TROPONIN I < 0.02 NG/ML (< 0.10)
[2020-09-05] MEDS ORDERED: LIDOCAINE VISCOUS 2% SOLN 15ML UDC MT ONE (18:15)
--- NOTE | 2020-09-05 18:44 | REP ---
INDICATION: odynophagia. COMPARISON: CT angio and portable chest 07/03/2020, TECHNIQUE: AP upright portable chest FINDINGS: Indwelling left jugular port catheter with tip in SVC near the right atrium, unchanged. Subtle nodular densities are again seen, less obvious on the current study than in June. Nevertheless there remain numerous nodules without pleural effusion or acute infiltrate. No lateral pleural thickening, apical scarring or pneumothorax. Heart not grossly enlarged and there is no vascular redistribution or edema. The aorta is tortuous but without gross aneurysm. Airway intact. Bony thorax without acute finding. No free air under the diaphragm. The patient has had a right mastectomy. IMPRESSION: Indwelling left a jugular port catheter and numerous small scattered pulmonary nodules again seen. No acute infiltrate or effusion. Cardiomediastinal silhouette, tortuous aorta and airway grossly intact unchanged. Prior right mastectomy. No new finding. <Electronically signed by Osmin Hassan > 09/05/20 [id number]
[2020-09-05 18:48] LABS: ATYPICAL LYMPH 10 % (0-5); BLAST CELLS 1 % (0-0); EOSINOPHILS 5 % (0-3); LYMPHOCYTES 40 % (16-44); METAMYELOCYTES 12 % (0-0); MONOCYTES 7 % (0-5); MYELOCYTES 3 % (0-0); NEUTROPHILS 8 % (28-66); PROMYELOCYTES 3 % (0-0)
[2020-09-05 18:50] LABS: TOXIC GRANULATION 2+
[2020-09-05 18:53] LABS: DOHLE BODIES 1+
[2020-09-05 18:54] LABS: PLATELET ESTIMATE DECREASED (NORMAL)
[2020-09-05 18:57] LABS: WHITE BLOOD COUNT 2.4 10^3/uL (4.0-10.0)
[2020-09-05] MEDS ORDERED: POTASSIUM CHLORIDE 10% LIQ 20 MEQ/15 ML UDC PO ONE (19:15)
[2020-09-05] MEDS ORDERED: ATEN100T PO (19:22)
[2020-09-05] MEDS ORDERED: DOK100TA2 PO (19:22)
--- NOTE | 2020-09-05 19:29 | ECGEPIP ---
[facility] - ED Test Date: 2020-09-05 Pat Name: JUNE HOOVER Department: Room: - Gender: Female Strategic Partnership Manager: : 1960 Requested By: CORIN Zee Order Number: [id number] Reading MD: Paco Hassan Measurements Intervals [place] Rate: 101 P: 66 DE: 160 QRS: 10 QRSD: 78 T: 48 QT: 308 QTc: 308 Interpretive Statements Sinus tachycardia Left ventricular hypertrophy with repolarization abnormality SIMILAR TO 07/03/20 Electronically Signed on 09-05-2020 19:28:37 EST by Paco Hassan
--- NOTE | 2020-09-05 20:17 | HPEPDOC ---
[facility] Medical History & Physical Date of Admission Sep 05, 2020 Date of Service: Sep 05, 2020 History and Physical CHIEF COMPLAINT: dysphagia HISTORY OF PRESENT ILLNESS: 60 yo female with a history of right-sided metastati c breast cancer diagnosed in 2016, status post modified radical mastectomy and chemotherapy with metastatic disease to sacral spine and liver. Patient also has a history of COPD, hypertension and GERD. He last received chemotherapy in 08/30/2020. Since that she has had nausea, and retching associated with chest upper abdominal discomfort with radiation to the back. Patient has had reduced by mouth intake. Last eaten or drank anything was approximately 24 hours ago. On arrival, patient appears dehydrated with a lactic acid of 2.8. She was given 1 L normal saline. Her pain seems to have improved with a GI cocktail. Patient will be admitted to hospital service for suspected esophagitis related to chemotherapy. She is hard of hearing and some was subsequently history was obtained from her daughter. Patient is full code according to her daughter. She follows with a [facility] with the oncologist, Dr. Mclean. PAST MEDICAL HISTORY: right-sided breast cancer 2016 S/P modified radical mastectomy Metastatic cancer to sacral spine and liver COPD Hypertension Gastritis takes Protonix GERD PAST SURGICAL HISTORY: 2 C-sections SOCIAL HISTORY: recreational marijuana occcasional glass of wine Former smoker ~20 pack years FAMILY HISTORY: hx of breast ca in sister Brother had lung Mother had CVA ALLERGIES: Please see below. REVIEW OF SYSTEMS: 10 point ROS was completed, relevant findings noted in HPI HOME MEDICATIONS: Please see below. PHYSICAL EXAMINATION: VITAL SIGNS: please see below General: NAD, comfortable, hard of hearing HEENT: PERRLA, EOMI, sclerae clear Neck: supple, normal ROM, no JVD Respiratory: lungs CTAB, no wheeze, no rales, no crackles CVS: RRR, normal S1, S2, no murmurs Abdo: soft, no masses, no hepatosplenomegaly, BS+, no rebound tenderness Extremities: no edema, pulses 2+ MSK: no joint deformities, normal ROM Neuro: no focal neuro deficits, moving all 4 extremities, CN2-12 intact. Strength 5/5 in all 4 extremities. No nystagmus. Psych: calm, cooperative, AAO x 3 LABORATORY DATA: See below. IMAGING: CXR (09/05/20) Indwelling left a jugular port catheter and numerous small scattered pulmonary nodules again seen. No acute infiltrate or effusion. Cardiomediastinal silhouette, tortuous aorta and airway grossly intact unchanged. Prior right mastectomy. No new finding. MICROBIOLOGY: Please see below. ASSESSMENT: 60 yo F with a hx of metastatic breast ca, gastritis, HTN, COPD, presented to ER with nausea, odynophagia and chest discomfort with radiation to the back, admitted for management of esophagitis, gastritis likely 2/2 recent chemotherapy. . PLAN: Nausea, and retching - without vomitus - likely secondary to recent chemotherapy (on 08/30/20) for metastatic breast ca - started on prn zofran Lactic acidosis - likely secondary to fluid deficit from reduced PO intake - s/p 1 L NS bolus in ER - repeat LA - c/w NS at 150 cc/hr x 2000 mL Throat, chest discomfort, abdo discomfort, suspect 2/2 chemotherapy related esophagitis - improved with GI cocktail - admit for observation - start on full liquids, add extra ice cream - start on carafate q8h - c/w GI cocktail prn - start on PPI 40 mg IV BID while inpt - will benefit from PO ppi on DC Metastatic breast CA, mets to liver and spine - patient follows with oncologist Dr. Mclean HTN - resume home meds COPD - c/w inhalers - stable, not in acute exacerbation Hx of HIV? - on triumeq - check cd4 count DVT PPX: SCDs, TEDs, lovenox. Vital Signs Vital Signs Date Time Temp Pulse Resp B/P (MAP) Pulse Ox O2 Delivery O2 Flow Rate FiO2 09/05/20 18:30 103 20 166/88 (114) 98 Room Air 09/05/20 16:18 98.9 Laboratory Data Labs 24H Laboratory Tests 2 09/05/20 17:07: Neutrophils (%) (Auto) , Neutrophils # (Auto) , Nucleated Red Blood Cells % (auto) 0.0, Neutrophils 8L, Band Neutrophils 11, Lymphocytes (Manual) 40, Monocytes (Manual) 7H, Eosinophils (Manual) 5H, Metamyelocytes 12H, Myelocytes 3H, Promyelocytes 3H, Blastocytes 1H, Atypical Lymphocytes 10H, Toxic Granulation 2+, Dohle Bodies 1+, Platelet Estimate DECREASED, Prothrombin Time 14.5H, Prothromb Time International Ratio 1.11, Activated Partial Thromboplast Time 28.5, Anion Gap 8, Glomerular Filtration Rate > 60.0, Lactic Acid Level 2.0, Calcium Level 8.8, Total Bilirubin 0.6, Direct Bilirubin 0.2, Aspartate Amino Transf (AST/SGOT) 24, Alanine Aminotransferase (ALT/SGPT) 36, Alkaline Phosphatase 241H, Total Creatine Kinase 54, Creatine Kinase MB < 1.0, Creatine Kinase MB Relative Index 1.85, Troponin I < 0.02, Total Protein 7.5, Albumin 3.8, Albumin/Globulin Ratio 1.0L, Lipase 40L 09/05/20 17:17: Whole Blood Ionized Calcium 4.5 09/05/20 19:47: CBC/BMP Laboratory Tests 09/05/20 17:07 Microbiology Microbiology 09/05/20 Blood Culture, Received Pending 09/05/20 Respiratory Virus Panel (PCR) ([facility]) - Final, Complete 09/05/20 Blood Culture, Received Pending Home Medications Scheduled Abacavir/Dolutegravir/Lamivudi (Triumeq 600-50-300 mg Tablet) 1 Each Tablet, 1 TAB PO DAILY Atenolol (Atenolol) 100 Mg Tablet, 100 MG PO BID Dexamethasone (Dexamethasone) 4 Mg Tablet, 2 TAB PO BID Take 2 tablets by mouth twice a day on the day before, the day of and the day after chemotherapy. Docusate Sodium (Dok) 100 Mg Tablet, 100 MG PO DAILY Ondansetron HCl (Ondansetron HCl) 8 Mg Tablet, 1 TAB PO Q8H for nausea/vomiting Scheduled PRN Albuterol Sulfate (Proair Hfa) 8.5 Gm Hfa.aer.ad, 2 PUFF INH QID PRN for SHORTNESS OF BREATH Oxycodone HCl/Acetaminophen (Oxycodone-Acetaminophen 5-325) 1 Each Tablet, 1 TAB PO BIDP PRN for pain Allergies Coded Allergies: No Known Allergies (Unverified , 03/04/20) SANTO SEGUNDO MD Sep 05, 2020 20:17
[2020-09-05] MEDS ORDERED: GI COCKTAIL 50ML BTL(HYOSCYAMINE/MAALOX/LIDOCAINE VISCOUS)(1:3:1) PO PRN (20:30)
[2020-09-05] MEDS ORDERED: MAALOX 30 ML SUSP *UDC PO PRN (20:30)
[2020-09-05] MEDS ORDERED: ALBUTEROL 90 MCG/ACT 8GM HFA INHALER INH PRN (20:30)
[2020-09-05] MEDS ORDERED: MOM 30ML SUSPENSION UDC PO PRN (20:30)
[2020-09-05] MEDS ORDERED: PERCOCET 5MG/325MG TAB PO PRN (20:30)
[2020-09-05] MEDS ORDERED: ONDANSETRON 4MG/2ML VIAL IV PRN (20:30)
[2020-09-05] MEDS: NS 1,000 ML IV SCH (20:44)
--- OUTSIDE RECORDS SUMMARY | 2020-09-05 20:52 | CCD ---
Author Author [facility] Organization [facility] Address Unknown Phone Unavailable Care Team Providers [employer] Name Role Phone Erickson ATKINSON MD Unavailable [...] is protected by Article 27-F of the [facility] Public Health law. If you continue you may have access to information: Regarding HIV / AIDS; Provided by facilities licensed or operated by the [facility] Office of Mental Health; or Provided by the [facility] Office for People With Developmental Disabilities. If such information is present, then the following [facility] mandated warning applies: This information has [...] law may result in a fine or detention sentence or both. A general authorization for the release of medical or other information is NOT sufficient authorization for further disc losure. Allergies and Adverse Reactions Type Description Substance Reaction Status Data Source(s ) Drug Class NO KNOWN ALLERGIES NO KNOWN ALLERGIES [facility] Encounters Encounter Providers Location Date Indications Data Source(s ) Emergency Attender: CORIN ATKINSON MD [id number] 05/17 12:00:00 AM EST - 06/07/2020 07:50:00 AM EST Nontraumatic subarachnoid hemorrhage, unspecified [facility] Nontraumatic subarachnoid hemorrhage, un specified Patient discharged. Outpatient 06/06/2020 12:24:00 AM EST LLE pain [facility] LLE pain Outpatient Admitter: Neil Fergusoneferrer: Neil Gil 04/12/2020 12:00:00 AM EDT Solitary pulmonary nodule [facility] Solitary pulmonary nodule Outpatient Admitter: Neil Fergusoneferrer: Neil Gil 03/31/2020 12:00:00 AM EDT - 03/31/2020 11:59:00 PM EDT Malignant neoplasm of unspecified part o f right bronchus or lung [facility] Malignant neoplasm of unspecified part o f right bronchus or lung Outpatient [facility] [id number] 07/24/2019 12:00:00 AM EST - 07/24/2019 12:00:00 AM EST eCW3 ([facility]) Immunizations Vaccine Date Status Description Data Source(s) New in 2011. IIV4 05/11/2020 02:07:00 PM EDT completed eCW3 ([facility]) New in 2011. IIV4 05/11/2020 02:07:00 PM EDT completed eCW3 ([facility]) Medications Medication Brand Name Start Date [...] mg from all sources in 24 hours.
[facility] Medication administered onsite iohexol (OMNIPAQUE) 350 MG/ML contrast injection 100 mL [id number] 06/07/2020 03:30:00 AM EST 100 mL Given by IV completed 100 mL, Given by IV, 1 TIME IMAGING, Sun06/07/20 at 0330, For 1 dose [facility] Medication administered onsite Hydrochlorothiazide 50 MG Oral Tablet hy droCHLOROthiazide 50 MG Oral Tablet (HYDRODIURIL) hydroCHLOROthiazide 50 MG Oral Tablet (HYDRODIURIL) 12:00:00 AM EDT active [facility] Albuterol Sulfate HFA 108 (90 Base) MCG/ ACT Inhalation Aerosol Solution (PROVENTIL HFA) 0111-9950-66 05/11/2020 12:00:00 AM EDT [facility] letrozole 2.5 MG Oral Tablet Letrozole 2.5 MG Letrozole 2.5 MG 05/11/2020 12:00:00 AM EDT 1.0 {tablet} active Le trozole 2.5 MG eCW3 ([facility]) letrozole 2.5 MG Oral Tablet Letrozole 2.5 MG Letrozole 2.5 MG 05/11/2020 12:00:00 AM EDT 1.0 {tablet} active Le trozole 2.5 MG eCW3 ([facility]) 2.5 mg 04/16/2020 12:00:00 AM EDT [...] {tablet_as_needed} active A cetaminophen 500 MG eCW3 ([facility]) Acetaminophen 500 MG Oral Tablet Acetaminophen 500 MG 2019 12:00:00 AM EDT 1.0 {tablet_as_needed} active A cetaminophen 500 MG eCW3 ([facility]) Blood Pressure Monitor - Blood Pressure Monitor - 12/31/2019 12:00: 00 AM EDT active Blood Pressure Monitor - eCW3 ([facility]) Blood Pressure Monitor - Blood Pressure Monitor - 12/31/2019 12:00: 00 AM EDT active Blood Pressure Monitor - eCW3 ([facility]) Acetaminophen 500 MG Oral Tablet Acetaminophen 500 MG 2019 12:00:00 AM EDT 1.0 {tablet_as_needed} active A cetaminophen 500 MG eCW3 ([facility]) Blood Pressure Monitor - Blood Pressure Monitor - 12/31/2019 12:00: 00 AM EDT active Blood Pressure Monitor - eCW3 ([facility]) Acetaminophen 500 MG Oral Tablet Acetaminophen 500 MG 2019 12:00:00 AM EDT 1.0 {tablet_as_needed} active A cetaminophen 500 MG eCW3 ([facility]) Blood Pressure Monitor - Blood Pressure Monitor - 12/31/2019 12:00: 00 AM EDT active Blood Pressure Monitor - eCW3 ([facility]) Blood Pressure Monitor - Blood Pressure Monitor - 12/31/2019 12:00: 00 AM EDT active Blood Pressure Monitor - eCW3 ([facility]) Blood Pressure Monitor - Blood Pressure Monitor - 12/31/2019 12:00: 00 AM EDT active Blood Pressure Monitor - eCW3 ([facility]) Potassium Chloride 10 MEQ Extended Release Oral Capsul e Potassium Chloride 10 MEQ 12/11/2019 12:00:00 AM EDT 1.0 {capsule_with_food} active Potassium Chloride 10 MEQ eCW3 ([facility]) Potassium Chloride 10 MEQ Extended Release Oral Capsul e Potassium Chloride 10 MEQ 12/11/2019 12:00:00 AM EDT 1.0 {capsule_with_food} active Potassium Chloride 10 MEQ eCW3 ([facility]) Potassium Chloride 10 MEQ Extended Release Oral Capsul e Potassium Chloride 10 MEQ 12/11/2019 12:00:00 AM EDT 1.0 {capsule_with_food} active Potassium Chloride 10 MEQ eCW3 ([facility]) Potassium Chloride 10 MEQ Extended Release Oral Capsul e Potassium Chloride 10 MEQ 12/11/2019 12:00:00 AM EDT 1.0 {capsule_with_food} active Potassium Chloride 10 MEQ eCW3 ([facility]) Potassium Chloride 10 MEQ Extended Release Oral Capsul e Potassium Chloride 10 MEQ 12/11/2019 12:00:00 AM EDT 1.0 {capsule_with_food} active Potassium Chloride 10 MEQ eCW3 ([facility]) Potassium Chloride 10 MEQ Extended Release Oral Capsul e Potassium Chloride 10 MEQ 12/11/2019 12:00:00 AM EDT 1.0 {capsule_with_food} active Potassium Chloride 10 MEQ eCW3 ([facility]) Metronidazole 500 MG Oral Tablet Metronidazole 500 MG 2019 12:00:00 AM EDT 4.0 {tablet} active Metronidazo le 500 MG eCW3 ([facility]) Metronidazole 500 MG Oral Tablet Metronidazole 500 MG 2019 12:00:00 AM EDT 4.0 {tablet} active Metronidazo le 500 MG eCW3 ([facility]) Metronidazole 500 MG Oral Tablet Metronidazole 500 MG 2019 12:00:00 AM EDT 4.0 {tablet} active Metronidazo le 500 MG eCW3 ([facility]) Metronidazole 500 MG Oral Tablet Metronidazole 500 MG 2019 12:00:00 AM EDT 4.0 {tablet} active Metronidazo le 500 MG eCW3 ([facility]) Metronidazole 500 MG Oral Tablet Metronidazole 500 MG 2019 12:00:00 AM EDT 4.0 {tablet} active Metronidazo le 500 MG eCW3 ([facility]) Metronidazole 500 MG Oral Tablet Metronidazole 500 MG 2019 12:00:00 AM EDT 4.0 {tablet} active Metronidazo le 500 MG eCW3 ([facility]) tramadol hydrochloride 50 MG Oral Tablet Tramadol HCl 50 MG Tramadol HCl 50 MG 07/24/2019 12:00:00 AM EST 1.0 {tablet_as_needed} active Tramadol HCl 50 MG eCW3 ([facility]) tramadol hydrochloride 50 MG Oral Tablet Tramadol HCl 50 MG Tramadol HCl 50 MG 07/24/2019 12:00:00 AM EST 1.0 {tablet_as_needed} active Tramadol HCl 50 MG eCW3 ([facility]) tramadol hydrochloride 50 MG Oral Tablet Tramadol HCl 50 MG Tramadol HCl 50 MG 07/24/2019 12:00:00 AM EST 1.0 {tablet_as_needed} active Tramadol HCl 50 MG eCW3 ([facility]) tramadol hydrochloride 50 MG Oral Tablet Tramadol HCl 50 MG Tramadol HCl 50 MG 07/24/2019 12:00:00 AM EST 1.0 {tablet_as_needed} active Tramadol HCl 50 MG eCW3 ([facility]) tramadol hydrochloride 50 MG Oral Tablet Tramadol HCl 50 MG Tramadol HCl 50 MG 07/24/2019 12:00:00 AM EST 1.0 {tablet_as_needed} active Tramadol HCl 50 MG eCW3 ([facility]) tramadol hydrochloride 50 MG Oral Tablet Tramadol HCl 50 MG Tramadol HCl 50 MG 07/24/2019 12:00:00 AM EST 1.0 {tablet_as_needed} active Tramadol HCl 50 MG eCW3 ([facility]) tramadol hydrochloride 50 MG Oral Tablet Tramadol HCl 50 MG Tramadol HCl 50 MG 07/24/2019 12:00:00 AM EST 1.0 {tablet_as_needed} active Tramadol HCl 50 MG eCW3 ([facility]) Acetaminophen 500 MG Oral Tablet Acetaminophen 500 MG 2018 12:00:00 AM EST 1.0 {tablet_as_needed} active A cetaminophen 500 MG eCW3 ([facility]) tizanidine 4 MG Oral Tablet Tizanidine HCl 4 MG Tizanidine H Cl 4 MG 11/28/2017 12:00:00 AM EDT 1.0 {tablet_as_needed} active Tizanidine HCl 4 MG eCW3 ([facility]) Insurance Providers Payer name Policy type / Coverage type Policy ID Covered libertarian ID Covered libertarian's relationship to magana Policy Magana Plan Information [facility] COMM[facility]AN [facility] [id number] SP [id number] [facility] [id number] SP [id number] [facility] PHSP INC [id number] SP [id number] MEDICAID MGD I [id number] Self [id number] [place] [id number] SP [id number] MEDICARE [id number] SP [id number] Problems, Conditions, and Diagnoses Code Display Name Description Problem Type Effective Dates Data Source(s) N18.3 CKD (chronic kidney disease) stage 3, GF R 30-59 ml/min CKD (chronic kidney disease) stage 3, GFR 30-59 ml/min Problem 12/10/2019 12:00:00 AM ED T eCW3 ([facility]) M54.5 Acute midline low back pain without scia sue Acute midline low back pain without sciatica Problem 11/13/2019 12:00:00 AM EDT eCW3 ([facility]) M54.5 Acute midline low back pain without scia sue Acute midline low back pain without sciatica Problem 11/13/2019 12:00:00 AM EDT eCW3 ([facility]) W22.09XA Striking against other stationary object , initial encounter Striking against other stationary object, initial encounter Diagnosis 01:25:00 AM [facility] S06.6X0A Traumatic subarachnoid hemor rhage without loss of consciousness, initial encounter Traumatic subarachnoid hemorrhage withou t loss of consciousness, initial encounter Diagnosis 06/07/2020 01:25:00 AM [facility] I60.9 Nontraumatic subarachnoid hemorrhage, un specified Nontraumatic subarachnoid hemorrhage, unspecified Diagnosis 06/07/2020 01:25:00 AM [facility] Brain Bleed Brain Bleed Diagnosis 06/07/2020 01:25:00 AM [facility] LLE pain LLE pain Diagnosis 06/06/2020 12:24:00 AM [facility] R91.1 Solitary pulmonary nodule Solitary pulmonary nodule Di agnosis 04/12/2020 02:56:00 PM [facility] C34.91 Malignant neoplasm of unspecified part o f right bronchus or lung Malignant neoplasm of unspecified part of right bronchus or lung Diagnosis 03/31/2020 10:12:00 AM [facility] Surgeries/Procedures Procedure Description Date Indications Data Source(s) CT ANGIOGRAPHY HEAD W/CONTRAST/NONCONTRAST CT ANGIOGRAPHY HEAD [id number] STAT 06/07/2020 3:24 AM EST 06/07/2020 03:24:22 AM [facility] PARTIAL THROMBOPLASTIN TIME (PTT) PARTIAL THROMBOPLASTIN TIME ( PTT) Routine 06/07/2020 2:06 AM EST 06/07/2020 02:06:00 AM [facility] PROTHROMBIN TIME PROTIME INR Routine 06/07/2020 2:06 AM EST 06/07/2020 02:06:00 AM [facility] BLOOD COUNT COMPLETE AUTO&AUTO DIFRNTL WBC COUNT CBC AND DIFFER ENTIAL Routine 06/07/2020 2:06 AM EST 06/07/2020 02:06:00 AM [facility] HEPATIC FUNCTION PANEL HEPATIC FUNCTION PANEL A STAT 0 2:06 AM EST 06/07/2020 02:06:00 AM [facility] BASIC METABOLIC PANEL CALCIUM TOTAL BASIC METABOLIC PANEL STAT 06/07/2020 2:06 AM EST 06/07/2020 02:06:00 AM [facility] Results ID Date Data Source [id number] 07/03/2020 09:09:00 AM EST [facility] Name Value Range Interpretation Code Description Data Jacqueline rce(s) Supporting Document(s) SARS coronavirus 2 RNA [Presence] in Res piratory specimen by [place] with probe detection [facility] This lab was ordered by [facility] a nd reported by [facility]. ID Date Data Source [id number] 06/17/2020 03:55:16 PM [facility] Name Value Range Interpretation Code Description Data Jacqueline rce(s) Supporting Document(s) ED Provider Note [facility] XFKLMs4bLtHUXmOh56/ATNmsTUJoa8AxRLhaBQm2HFboLURzY2OkOQW4wL5yGGN5QFaETrDpTjRsBnPr [facility] [file] KyrLDsRKq3G54jbJYpULdeAG2QVYD+Quinton+Dp1UITUrKBYkDINkKeMvQHNAIhEkN7TvM7STd6ImB2BsKN 22uDglnmYqRHnaDE2XTJ6oMVXyGZHRCX3MpVDicS8o auJrODHuSZGZAiRyO32qaWMfCUKhHFG0SHSnJn5YTFAnH0UlajNisZbdtpBgNRAnDNQNVT7RHPsipgIw gEShqFprLF35nNpsOZ6VSb0URqOsIM0nwe8FzRXlVg1KSPG5EK6WHOZbNHLxXISaMKP7UZYsDjYeKWbw JMCvHOWvFQY7UCCgVPEwZA5TYaVwUJZfEOZtYHNbCY SfHGVoba1TBBFzHDL1Bdf5QaNkJKJfTVSwHLkpUNRbOYHxIQI2KHJeXHTfNG3GYlUjRKBjOBR4PWcvXE QkYGGqdu5OEQFaTRUgTfA0LeCmEFEiRWPgXSlbQRQaKRA6KxV1BVRvJFTeMD4IWgQqNKUrYLZ4PiPaLS TvCFXtmz9WNYAcQTJmVZe5MuExAHTqJSUbZTziQVUh LQI2IGv6CEYwHDSkDX6PWqIeANOaJCA8LZyfEMLwLOTqrl6YWCOfELMuCQv1QDVdNIYnZYMoBJczSSKp EZX4ItF5GSBjXKJsPT8BUfGoBPNkZSL2CDLkWQMbHGHtim5NESCkNPKuOmH7OZEkLBRcKKGxMXgoYYOw XAG3AXd1OVYjFCJbIB0WMjQfKIMcXsQuSpRpXMJeCH Hsbx2LICTpMAXoNKA1VyNuPNZnIHAiIOggCSWlJNDbKdAzRYRzQWJxEL7FKvSuAZQpHoK5RdcjKUUeLC Uhha4OMTCmFTYfCMW6KdKpMHAlOBFdAQreKUWqMQD7HyktGNGiBDDoXN9IXzGwBSGlQqS2DSTuTJCgUK Gwzr7XDUMzLUNlFba2PUCjLYFfHPKzVZffFQOmEXO1 HMEvMEMkHANyYT1LUdCcQSMpNxikCPCvSUSzTIGstj5WDDPwYORcGWZ9UKAqOHEgLOItSVycQFApTOR1 ADgjTRZeYOHzQS1JFsWwCOJpEre9LDIfIIIiWFUxpq5JFYBuIKTjPYWuFQQnNXIlTLXlZYreIBZfBLB2 FDSfBPCqNHIcDH2ASbSgITUzIHNoYPmrJYJyNEPufm 2NXIVwXFC0JKCdIQQsRLNtNKBmIIzmTVJvBARuUmX1NLMlZIEcKI4ZUrDaAVKrSFF6UxYmYQFrETWunb 8IDABfFGB6TeUzDJNeTNEmLBWdJUsuKLZpHCJcGXG5PWXnQDOaOF2NNaEuNLJnVXEuSanpIIWyCUWqfb 0ANZEmSCF6PAB6PNLuWWBrEEQbGJdxSHEyCLP9Znwj TAKiQSQqDI6SUkSpHNKwSQM5QiTsRQQfMEMunf1NPYZgTCF0YGD9CAQwITTrXJQoQAdrTBQiXWS4PXOw IHNoDPEpPR3KOcWoVHCaPOX1MLTnWCKbXXGoms9YsIJfdYwftb0PVRwQZi8SfJwzOCO8QBzjAv6hlNJ5 QMUjMIZDUa5MtwPzZSOpBFAUQNstBMXcTGLvXXH8ME I7Nxx4DSQqRFF8JNJlQxFjAnL3TrayMDt0ZrZ1S7YxMVi2PMUoPFBjSPF0QwvtYHL8SaXxIufkB0YkKD Y+DK8dQRy+So0Pg4ZgvqY3ksQjUFn0UMXyUV9XJVJXZ0JIZn== ID Date Data Source [id number] 06/07/2020 10:07:07 AM [facility] Name Value Range Interpretation Code Description Data Jacqueline rce(s) Supporting Document(s) Consultation [facility] KJNRLe3eYnFFVvOo88/QJOnqDQEee9LtWTgvEVi4ETauLWFhU8MmQNB7nU4sJZX4OCjAJoVnArGbCZMe lbm [file] jcBrww1XLG0Jhz6JGq6YCAqXF9Rb67/ufK3Cf4Ps/Steam Shovel Operating Engineer+Oun02ysAF8Pgw06RqyPetic4/Ahr+sX6uyzA [file] MTI+TP1kOAd+Co2Em0DxbbF8hiZsPCsxPRZgPq7SORLJS5HMSg== ID Date Data Source [id number] 06/07/2020 09:32:29 AM [facility] CT ANGIOGRAPHY HEAD [id number] RESULTInt erpreted by:Carlene Garay, MDCT ANGIOGRAPHY HEAD [id number] INDICATION: Please evaluate for Sinus venous thrombosis.TECHNIQUE: [...] or dissection. The intracranial arteries of the [place] are patent without evidence of large vessel occlusion, arteriovenous malformation, dissection, or aneurysm.IMPRESSION: 1. Punctate hyperdense focus in the left parietal lobe, concerning for subarachnoid hemorrhage. Given differences in technique, there is no significant interval change from prior exam.2. Patent dural venous sinuses without evidence of thrombosis.3. No large vessel occlusion in the major intracranial arteries of the [place].Assessment of stenosis of the internal carotid arteries is based on NASCET criteria.The primary team is aware of these findings at the time of dictation.This document has been electronically signed by Kelvin Schwab MD on 06/07/2020 9:30 AM Name Value Range Interpretation Code Description Data Jacqueline rce(s) Supporting Document(s) ID Date Data Source [id number] 06/07/2020 02:23:37 AM [facility] Name Value Range Interpretation Code Description Data Jacqueline rce(s) Supporting Document(s) Leukocytes [#/volume] in Blood by Automated count 8.2 10*3/uL 4-10 [facility] Erythrocytes [#/volume] in Blood by Automated count 3.86 10*6/uL 4.1- 5.3 L [facility] Hemoglobin [Mass/volume] in Blood 12.2 g/dL 11.5-15.5 [facility] Hematocrit [Volume Fraction] of Blood by Automated count 36.1 % 3 6-45 [facility] Erythrocyte mean corpuscular volume [Entitic volume] by Auto mated count 93.7 fL 80-96 [facility] Erythrocyte mean corpuscular hemoglobin [Entitic mass] by Automated count 31.7 pg 27-33 [facility] Erythrocyte mean corpuscular hemoglobin concentration [Mass/volume] by Automated count 33.8 g/dL 32.0-36.0 [facility] distribution width [Ratio] by Automated count 13.2 % 11.5-14.5 [facility] Platelets [#/volume] in Blood by Automated count 205 10*3/uL 150-400 [facility] Differential cell count method - Blood [facility] Neutrophils/100 leukocytes in Blood by Automated count 60 % [facility] Lymphocytes/100 leukocytes in Blood by Automated count 27 % [facility] Monocytes/100 leukocytes in Blood by Automated count 11 % [facility] Eosinophils/100 leukocytes in Blood by Automated count 1 % [facility] Basophils/100 leukocytes in Blood by Automated count 1 % [facility] Neutrophils [#/volume] in Blood by Automated count 4.90 10*3/uL 1.8-7 .0 [facility] Lymphocytes [#/volume] in Blood by Automated count 2.22 10*3/uL 1.2-4 .0 [facility] Monocytes [#/volume] in Blood by Automated count 0.92 10*3/uL 0-0.8 H [facility] Eosinophils [#/volume] in Blood by Automated count 0.09 10*3/uL 0-0.5 [facility] Basophils [#/volume] in Blood by Automated count 0.04 10*3/uL 0-0.2 [facility] Nucleated erythrocytes/100 leukocytes [Ratio] in Blood by Automated count 0 /100{WBCs} 0-0 [facility] ID Date Data Source [id number] 06/07/2020 02:30:34 AM EST [facility] Name Value Range Interpretation Code Description Data Jacqueline rce(s) Supporting Document(s) Prothrombin time (PT) 14.2 s 12.5-14.9 [facility] INR in Platelet poor plasma by Coagulation assay 1.09 [facility] Routine intensity oral anticoagulation I NR is typically 2.0-3.0. Target INR must be clinically individualized. ID Date Data Source [id number] 06/07/2020 02:30:34 AM [facility] Name Value Range Interpretation Code Description Data Jacqueline rce(s) Supporting Document(s) aPTT in Platelet poor plasma by Coagulation assay 29.4 s 24.0-33. 0 [facility] ID Date Data Source [id number] 06/07/2020 02:43:18 AM [facility] Name Value Range Interpretation Code Description Data Jacqueline rce(s) Supporting Document(s) Albumin [Mass/volume] in Serum or Plasma by Bromocresol green (BCG) dye binding method 3.7 g/dL 3.5-5.2 [facility] al Bilirubin.total [Mass/volume] in Serum or Plasma 0.6 mg/dL <1.2 [facility] Bilirubin.direct [Mass/volume] in Serum or Plasma 0.2 mg/dL <0.3 [facility] Alkaline phosphatase [Enzymatic activity/volume] in Serum or Plasma 239 U/L 35-104 H [facility] Aspartate aminotransferase [Enzymatic activity/volume] in Serum or Plasma 27 U/L <32 [facility] Alanine aminotransferase [Enzymatic activity/volume] in Seru m or Plasma 9 U/L <33 [facility] Protein [Mass/volume] in Serum or Plasma 7.7 g/dL 6.4-8.3 [facility] ID Date Data Source [id number] 06/07/2020 02:43:18 AM [facility] Value Range Interpretation Code Description Data Jacqueline rce(s) Supporting Document(s) Bicarbonate [Moles/volume] in Serum 27 mmol/L 22-29 [facility] Chloride [Moles/volume] in Serum or Plasma 99 mmol/L 98-107 [facility] Creatinine [Mass/volume] in Serum or Plasma 1.17 mg/dL 0.50-0.90 H [facility] Glucose [Mass/volume] in Serum or Plasma 122 mg/dL 70-140 [facility] Potassium [Moles/volume] in Serum or Plasma 3.1 mmol/L 3.4-5.1 L [facility] Sodium [Moles/volume] in Serum or Plasma 135 mmol/L 136-145 L [facility] Urea nitrogen [Mass/volume] in Serum or Plasma 26 mg/dL 8-23 H [facility] Anion gap 3 in Serum or Plasma 9 mmol/L 8-15 [facility] Osmolality of Serum or Plasma by calculation 286 mosm/kg 275-300 [facility] Creatinine/Urea nitrogen [Mass Ratio] in Serum or Plasma 22 [facility] Calcium [Mass/volume] in Serum or Plasma 9.0 mg/dL 8.8-10.2 [facility] Glomerular filtration rate/1.73 sq M pre dicted among non-blacks [Volume Rate/Area] in Serum or Plasma by Creatinine-based formula (MDRD) 49 mL/min/1.73m2 >60 L [facility] Glomerular filtration rate/1.73 sq M pre dicted among blacks [Volume Rate/Area] in Serum or Plasma by Creatinine-based formula (MDRD) 57 mL/min/1.73m2 >60 L [facility] ID Date Data Source [id number] 05/12/2020 12:00:00 AM EDT [facility] Name Value Range Interpretation Code Description Data Jacqueline rce(s) Supporting Document(s) 2019-nCoV RNA XXX OH+probe-Imp [facility] This lab was ordered by [facility] [facility] and reported by [facility]. ID Date Data Source [id number] 04/13/2020 05:48:00 PM EDT [facility] Surgical Pathology Report See Addendum B [place]aurus: GITA HOOVERRN: [id number] Number: [id number] Date: 04/12/2020 00:00Received Date: 04/12/2020 14:58Physician(s): NEIL GIL MD VYAS, SHIKHAR G,MDSpecimen(s) ReceivedA: Slides received for consultation, CCClinical HistoryHistory of breast cancer. Right lung nodule biopsy with "metastaticadenocarcinoma of mammary origin". Tumor cells reported to be PPGA1omfaugoi. For ER, VA, and HER2 IHC, reflex to HER FISH.Addendum 04/27/2020 RESULTS OF MOLECULAR ASSAYS: Test name: HER2 by FISHTest interpretation: POSITIVE FOR HER2 (ERBB2) GENE AMPLIFICATION. ([id number] for full report)./pmw Addendum Electronically Signed By: Jose Mccall MD; 04/27/2020 DiagnosisIMMUNOHISTOCHEMISTRY, RIGHT LUNG NODULE, BIOPSY ([id number]; 03/26/20): ESTROGEN RECEPTORS: Positive (strong intensity in 100% of tumor cells).PROGESTERONE RECEPTORS: Positive (moderate intensity in 70% of tumorcells).HER2: Equivocal (2+); HER2 FISH pending (addendum report will follow).Electronically Signed By Jose Mccall MD;, Attending Pathologist04/13/2020 17:48:37 Unless 'gross-only' is specified, the final diagnosis is based on amicroscopic examination of customer account representative sections of tissue.Gross DescriptionReceived from [facility] in [place], [place] is 1 paraffinblock, labeled [id number] with the corresponding pathology report. This report may include one or more immunohistochemical stain results thatuse analyte specific reagents. All positive and negative controls havebeen reviewed by the attending pathologist and are satisfactory. The testswere developed and their performance characteristics determined by [facility] Pathology department. They have not been cleared or approved by the USFood and Drug Administration. The FDA has determined that such clearanceor approval is not necessary. Name Value Range Interpretation Code Description Data Jacqueline rce(s) Supporting Document(s) ID Date Data Source [id number] 04/23/2020 06:38:00 PM [facility] Anatomic Molecular Pathology ReportName: GITA HOOVERRN: [id number] Number: [id number] Date: 04/12/2020 00:00Received Date: 04/15/2020 11:15Physician(s): NEIL GIL MD VYAS, SHIKHAR G,MDSpecimen(s) ReceivedA: Slides received for consultation, CC, Formalin Block [id number] from [facility] in [place], [place], [id number] by FISHDiagnosisTEST: HER2 (ERBB2) by FISH (Fluorescence in situ Hybridization ).RESULT: RATIO of HER2 (ERBB2) to CEP17 (D17Z1) is 2.2Average HER2 (ERBB2) copy number per cell is 7.4International System for Cytogenetic Nomenclature: nuc darren(M56B2f2), 3~16(ERBB2)[80]INTERPRETATION:POSITIVE FOR HER2 (ERBB2) GENE AMPLIFICATION.The average of HER2 and CEP17 copies per cell in breast cancer is 7.4 and3.3 respectively, which makes a ratio of HER2 to CEP17 2.2. Based oncurrent ASCO/CAP guideline recommendations for (Arch Pathol Lab Med. doi:10.5858/arpa.9242-5374-GF), a ratio of HER2 to CEP17 that [...] performed on paraffin embedded breast cancerutilizing the Mesosphere HER2 DNA Probe Kit. This is a combination, directlabel, dual color detection system utilizing 2 probes: 1) HER2 (17q11.2 - q12, 190 kb, encompassing the gene) with SpectrumOrange label, and 2) CEP17 (17p11.1- q11.1, chromosome 17 centromere) with SpectrumGreen label. Tumor cells with no HER2 amplification have, on average, 2 orange and 2green signals. Amplification will result in multiple copies of the [id number], expressed as multiple orange signals. Hybridization is [...] Special Procedures Laboratory in the Departmentof Pathology, [facility]. REFERENCES1. CANDACE Ron, [place] Radha, AVELINO [...] developed and their performance characteristics determined by [facility] Pathology department. They have not been cleared or approved by the USFood and Drug Administration. The FDA has determined that such clearanceor approval is not necessary. Name Value Range Interpretation Code Description Data Jacqueline rce(s) Supporting Document(s) ID Date Data Source [id number] 04/02/2020 06:14:00 PM [facility] Surgical Pathology ReportName: GITA HOOVERRJamil: [id number] Number: [id number] Date: 03/31/2020 00:00Received Date: 03/31/2020 10:14Physician(s): NEIL GIL MD VYAS, SHIKHAR G,MDSpecimen(s) ReceivedA: Material received for consultation, GDLRClinical HistorySecond opinion.DiagnosisLUNG, RIGHT, NEEDLE BIOPSY ([id number], 03/26/20): METASTATIC ADENOCARCINOMA.(See Microscopic Description).Electronically Signed By Jovan Garcia M.D., Attending Pathologist04/02/2020 18:14:09 Gross DescriptionReceived [facility] in [place], [place], are 1 H and Estained slide and 8 specially stained slides, 1 paraffin block, [id number], with the corresponding pathology report. A abdomen [...] developed and their performance characteristics determined by [facility] Pathology department. They have not been cleared or approved by the USFood and Drug Administration. The FDA has determined that such clearanceor approval is not necessary. Name Value Range Interpretation Code Description Data Jacqueline rce(s) Supporting Document(s) ID Date Data Source [id number] 03/31/2020 07:05:00 PM EDT [facility] Name Value Range Interpretation Code Description Data Jacqueline rce(s) Supporting Document(s) Written Authorization [facility] Written Authorization Received.Authoriza tion received from [facility] [id number] by Laura Mcintyre ID Date Data Source [id number] 04/29/2020 02:06:00 PM EDT [facility] Name Value [...] and pancreatic cancer. Guidelines from [facility] Network(R) (NCCN(R))recommend considering germline genetic testing forhigh-penetrance breast and/or ovarian cancer genes(including, but not limited to, BRCA1/2, CDH1, PALB2, PTEN,and TP53) in patients with any of the criteria in the tablebelow. To discuss comprehensive genetic testing for breast,ovarian, and pancreatic cancer genes, an [employer] is available at [phone].Breast cancer diagnosed Ovarian cancer at any age<= [...] as recommendations for testing family members. Toaccess [facility] Genetic Counselors please [email or web address] or call [phone] ([phone]). METHODS AND LIMITATIONS [facility] Next-generation sequencing: Genomic charlie ons of interest areselected using a custom capture reagent for targetenrichment and sequenced via the [place](R) [place] sequencing platform. Regions of interest includeall exons and intron/exon junctions (+/-20 nucleotides) ofthe BRCA1 (NM_007294.3) and BRCA2 (NM_000059.3) genes.Sequencing reads are aligned with the human genomereference GRCh37/hg19 build. Minimum mean coverage is 40X.Any segment failing minimum read depth coverage is rescuedby bi-directional [place] sequencing to complete sequenceanalysis. Variants, including SNVs and CNVs, are identifiedusing a custom bioinformatics pipeline.Reported variants: Pathogenic and likely pathogenicvariants and variants of uncertain significance (VUS) arereported. Non-deletion variants are specified using thenumbering and nomenclature recommended by the Human GenomeVariation Society (HGVS, http://www.hgvs.org/). Benignvariants are not reported. Variant classification andconfirmation are consistent with ACMG standards andguidelines (Chandler, PMID:[id number]; Josephine, PMID:06443756).Detailed variant classification information is availableupon request. A [...] interactionsbetween variants. Variant classification and/orinterpretation may change control manager time if more informationbecomes available. False [...] was developed and its performance characteristicsdetermined by [facility]. It has not been cleared or approvedby the Food and Drug Administration. REFERENCES [facility] 1. NCCN Genetic/Familial High Risk Asses sment: Breast,Ovarian, and Pancreatic. Version 1.2020.2. Raúl et al. BRCA1- and BRCA2-AssociatedHereditary Breast and Ovarian Cancer. GeneReviews, [id number]. PMID: [id number]. RELEASED BY [facility] Clarissa Damico, MS, CGC, MSCR, under the direction ofDebbie Mcbride, PhD, [facility] PDF . [facility] ID Date Data Source [id number] 03/31/2020 03:05:00 PM EDT [facility] Name Value Range Interpretation Code Description Data Jacqueline rce(s) Supporting Document(s) Request Problem [facility] Test cancelled at client's request. TEST: [id number] Liver Cancer Monitor Profile Authorized by: Lani Rosado at your facility ID Date Data Source HIV RNA, Real Time PCR (Graph) [id number] 07/24/2019 12:00:00 AM EST eCW3 ([facility]) Name Value Range Interpretation Code Description Data Jacqueline rce(s) Supporting Document(s) HIV 1 RNA [#/volume] (viral load) in Ser um or Plasma by Probe and target amplification method 40 HIV-1 RNA by PCR eCW3 ([facility]) HIV 1 RNA [Log #/volume] (viral load) in Plasma by Probe and target amplification method 1.602 log10 HIV-1 RNA eCW3 ([facility]) ID Date Data Source CD4/CD8 Ratio Profile [id number] 07/24/2019 12:00:00 AM EST eCW3 ([facility]) Name Value Range Interpretation Code Description Data Jacqueline rce(s) Supporting Document(s) Deprecated CD4 cells [#/volume] in Blood 404 [id number] Absolute CD 4 [place] eCW3 ([facility]) Deprecated CD8 cells [#/volume] in Blood 3207 109-897 Abs. CD 8 Suppressor eCW3 ([facility]) Deprecated CD4 cells/100 cells in Blood 16.3 30.8-58.5 % CD 4 Pos. Lymph. eCW3 ([facility]) Deprecated CD8 cells/100 cells in Blood 55.3 12.0-35.5 % CD 8 Pos. Lymph. eCW3 ([facility]) Leukocytes [#/volume] in Blood by Automated count 15.2 3.4-10.8 WBC eCW3 ([facility]) Deprecated CD4 cells/CD8 Cells [# Ratio] in Blood 0.29 0.92 -3.72 CD4/CD8 Ratio eCW3 ([facility]) Erythrocytes [#/volume] in Blood by Automated count 4.93 3.77-5 .28 RBC eCW3 ([facility]) Erythrocyte mean corpuscular volume [Entitic volume] by Auto mated count 91 79-97 MCV eCW3 ([facility]) Erythrocyte mean corpuscular hemoglobin [Entitic mass] by Au tomated count 31.2 26.6-33.0 MCH eCW3 ([facility]) Hemoglobin [Mass/volume] in Blood 15.4 11.1-15.9 He moglobin eCW3 ([facility]) Hematocrit [Volume Fraction] of Blood by Automated count 44.9 34.0-46.6 Hematocrit eCW3 ([facility]) Neutrophils/100 leukocytes in Blood by Automated count 52 Not Estab. Neutrophils eCW3 ([facility]) Erythrocyte distribution width [Ratio] by Automated count 14.4 11.7-15.4 RDW eCW3 ([facility]) Erythrocyte mean corpuscular hemoglobin concentration [Mass/volume] by Automated count 34.3 31.5-35.7 MCHC eCW3 ([facility]) Platelets [#/volume] in Blood by Automated count 216 150-450 Platelets eCW3 ([facility]) Eosinophils/100 leukocytes in Blood by Automated count 1 Not Estab. Eos eCW3 ([facility]) Lymphocytes/100 leukocytes in Blood by Automated count 38 Not Estab. Lymphs eCW3 ([facility]) Basophils/100 leukocytes in Blood by Automated count 0 Not E stab. Basos eCW3 ([facility]) Monocytes/100 leukocytes in Blood by Automated count 9 Not E stab. Monocytes eCW3 ([facility]) Neutrophils [#/volume] in Blood by Automated count 7.9 1.4 -7.0 Neutrophils (Absolute) eCW3 ([facility]) Immature cells [#/volume] in Blood I mmature Cells eCW3 ([facility]) Lymphocytes [#/volume] in Blood by Automated count 5.8 0.7 -3.1 Lymphs (Absolute) eCW3 ([facility]) Immature granulocytes/100 leukocytes in Blood Immature Granulocytes eCW3 ([facility]) Monocytes [#/volume] in Blood by Automated count 1.4 0.1-0 .9 Monocytes(Absolute) eCW3 ([facility]) Basophils [#/volume] in Blood by Automated count 0.0 0.0-0.2 Baso (Absolute) eCW3 ([facility]) Eosinophils [#/volume] in Blood by Automated count 0.2 0.0-0.4 Eos (Absolute) eCW3 ([facility]) Immature granulocytes [#/volume] in Blood Immature Grans (Abs) eCW3 ([facility]) Nucleated erythrocytes/100 leukocytes [Ratio] in Blood by Automated count NRBC eCW3 ([facility]) Morphology [Interpretation] in Blood Narrative Note: Hematology Comments: eCW3 ([facility]) ID Date Data Source Comp. Metabolic Panel (14) ([id number] 07/24/2019 12:00:00 AM EST eCW3 ([facility]) Name Value Range Interpretation Code Description Data Jacqueline rce(s) Supporting Document(s) Urea nitrogen [Mass/volume] in Serum or Plasma 17 8-27 BUN eCW3 ([facility]) Glucose [Mass/volume] in Serum or Plasma 110 65-99 Glucose eCW3 ([facility]) Creatinine [Mass/volume] in Serum or Plasma 1.46 0.57-1.00 Creatinine eCW3 ([facility]) eGFR If NonAfricn Am 39 >59 eGFR If NonAfri cn Am eCW3 ([facility]) eGFR If Africn Am 44 >59 eGFR If Africn Am eCW3 ([facility]) Sodium [Moles/volume] in Serum or Plasma 136 134-144 Sodium eCW3 ([facility]) Urea nitrogen/Creatinine [Mass Ratio] in Serum or Plasma 12 12-28 BUN/Creatinine Ratio eCW3 ([facility]) Chloride [Moles/volume] in Serum or Plasma 92 96-106 Chloride eCW3 ([facility]) Carbon dioxide, total [Moles/volume] in Serum or Plasma 25 20-29 Carbon Dioxide, Total eCW3 ([facility]) Potassium [Moles/volume] in Serum or Plasma 3.2 3.5-5.2 Potassium eCW3 ([facility]) Calcium [Mass/volume] in Serum or Plasma 10.3 8.7-10.3 Calcium eCW3 ([facility]) Globulin [Mass/volume] in Serum by calculation 4.9 1.5-4.5 Globulin, Total eCW3 ([facility]) Albumin [Mass/volume] in Serum or Plasma 4.8 3.6-4.8 Albumin eCW3 ([facility]) Protein [Mass/volume] in Serum or Plasma 9.7 6.0-8.5 Protein, Total eCW3 ([facility]) Alkaline phosphatase [Enzymatic activity/volume] in Serum or Mary sma 133 39-117 Alkaline Phosphatase eCW3 ([facility]) Bilirubin.total [Mass/volume] in Serum or Plasma 1.0 0.0-1.2 Bilirubin, Total eCW3 ([facility]) Albumin/Globulin [Mass Ratio] in Serum or Plasma 1.0 1.2-2.2 A/G Ratio eCW3 ([facility]) Aspartate aminotransferase [Enzymatic activity/volume] in Se rum or Plasma 50 0-40 AST (SGOT) eCW3 ([facility]) Alanine aminotransferase [Enzymatic activity/volume] in Serum or Plasma 25 0-32 ALT (SGPT) eCW3 ([facility]) ID Date Data Source Lipid Panel With LDL/HDL Ratio.1 07/24/2019 12:00:00 AM EST eCW3 ([facility]) Name Value Range Interpretation Code Description Data Jacqueline rce(s) Supporting Document(s) Cholesterol [Moles/volume] in Serum or Plasma 174 100-199 Cholesterol, Total eCW3 ([facility]) Triglyceride [Mass/volume] in Serum or Plasma 109 0-149 Triglycerides eCW3 ([facility]) Cholesterol in HDL [Mass/volume] in Serum or Plasma 44 >39 HDL Cholesterol eCW3 ([facility]) Cholesterol in VLDL [Mass/volume] in Serum or Plasma by calculation 22 5-40 VLDL Cholesterol Bhargav eCW3 ([facility]) Cholesterol in LDL [Mass/volume] in Serum or Plasma by calculation 108 0-99 LDL Cholesterol Calc eCW3 ([facility]) Cholesterol in LDL/Cholesterol in HDL [Mass Ratio] in Serum or Plasma 2.5 0.0-3.2 LDL/HDL Ratio eCW3 ([facility]) Laboratory comment [Text] in Report Narrative Comment: eCW3 ([facility]) ID Date Data Source RPR, Rfx Qn RPR/Confirm TITO ([id number] 07/24/2019 12:00:00 AM EST eCW3 ([facility]) Name Value Range Interpretation Code Description Data Jacqueline rce(s) Supporting Document(s) Reagin Ab [Presence] in Serum by VDRL Non Reactive Non Reactive RPR eCW3 ([facility]) Procedure Social History Code Duration Value Status Description Data Source(s ) Smoking 06/07/2020 12:00:00 AM EST Unknown if ever smoked comp leted Unknown if ever smoked [facility] Smoking 05/11/2020 12:00:00 AM EDT Never Smoker completed Never S moker eCW3 ([facility]) Smoking 05/11/2020 12:00:00 AM EDT Never Smoker completed Never S moker eCW3 ([facility]) Smoking 12/31/2019 12:00:00 AM EDT Never Smoker completed Never S moker eCW3 ([facility]) Smoking 12/31/2019 12:00:00 AM EDT Never Smoker completed Never S moker eCW3 ([facility]) Smoking 12/31/2019 12:00:00 AM EDT Never Smoker completed Never S moker eCW3 ([facility]) Smoking 12/31/2019 12:00:00 AM EDT Never Smoker completed Never S moker eCW3 ([facility]) Smoking 11/13/2019 12:00:00 AM EDT Never Smoker completed Never S moker eCW3 ([facility]) Smoking 07/24/2019 12:00:00 AM EST Never Smoker completed Never S moker eCW3 ([facility]) Vital Signs ID Date Data Source UNK Name Value Range Interpretation Code Description Data Source(s) Diastolic blood pressure 81 mm[Hg] 81 mm[Hg] eCW3 ([facility]) Systolic blood pressure 128 mm[Hg] 128 mm[Hg] e CW3 ([facility]) Body temperature 97.2 [degF] 97.2 [degF] eCW3 ( [facility]) Heart rate 18 /min 18 /min eCW3 ([facility]) Body mass index (BMI) [Ratio] 20.97 kg/m2 20.97 kg/m2 eCW3 ([facility]) Body weight 126 [lb_av] 126 [lb_av] eCW3 ([facility]) Body height [in_i] eCW3 ([facility]) ID Date Data Source [id number] 06/07/2020 01:24:30 AM [facility] Name Value Range Interpretation Code Description Data Source(s) TRANSFER FROM [facility] Patient Treatment Plan of Care Planned Activity Planned Date Details Description Data Source (s) letrozole 2.5 MG Oral Tablet 05/11/2020 12:00:00 AM EDT eCW3 ([facility]) Albuterol Sulfate HFA 108 (90 Base) MCG/ ACT Inhalation Aerosol Solution (PROVENTIL HFA) 05/11/2020 12:00:00 AM EDT [facility] Hydrochlorothiazide 50 MG Oral Tablet 05/11/2020 12:00:00 AM EDT [facility] letrozole 2.5 MG Oral Tablet 05/11/2020 12:00:00 AM EDT eCW3 ([facility]) Acetaminophen 500 MG Oral Tablet 12/31/2019 12:00:00 AM EDT eCW3 ([facility]) Blood Pressure Monitor - 12/31/2019 12:00:00 AM EDT eCW3 ([facility]) Acetaminophen 500 MG Oral Tablet 12/31/2019 12:00:00 AM EDT eCW3 ([facility]) Blood Pressure Monitor - 12/31/2019 12:00:00 AM EDT eCW3 ([facility]) Acetaminophen 500 MG Oral Tablet 12/31/2019 12:00:00 AM EDT eCW3 ([facility]) Blood Pressure Monitor - 12/31/2019 12:00:00 AM EDT eCW3 ([facility]) Acetaminophen 500 MG Oral Tablet 12/31/2019 12:00:00 AM EDT eCW3 ([facility]) Blood Pressure Monitor - 12/31/2019 12:00:00 AM EDT eCW3 ([facility]) Potassium Chloride 10 MEQ Extended Release Oral Capsul e 12/11/2019 12:00:00 AM EDT eCW3 ([facility]) Potassium Chloride 10 MEQ Extended Release Oral Capsul e 12/11/2019 12:00:00 AM EDT eCW3 ([facility]) tramadol hydrochloride 50 MG Oral Tablet 07/24/2019 12:00:00 AM EST eCW3 ([facility]) Acetaminophen 500 MG Oral Tablet 06/24/2019 12:00:00 AM EST eCW3 ([facility]) tizanidine 4 MG Oral Tablet 11/28/2017 12:00:00 AM EDT eCW3 ([facility])
[2020-09-05] MEDS: ACETAMINOPHEN TAB 650MG DOSE (2X325MG) PO PRN (22:32)
[2020-09-05 23:07] VITALS: BP 130/75
[2020-09-05] MEDS: PANTOPRAZOLE 40MG VIAL (C9113 PER 1) IV SCH (23:25)
[2020-09-05] MEDS: SUCRALFATE 1 GM TAB PO SCH (23:26)
[2020-09-05] MEDS: atenoloL 50 MG TAB PO SCH (23:27)
[2020-09-05] MEDS: DOCUSATE SODIUM 100MG CAPSULE PO SCH (23:27)
[2020-09-06] MEDS ORDERED: POTASSIUM CHLORIDE 10 MEQ SR TABLET PO ONE (00:30)
[2020-09-06] MEDS: SUCRALFATE 1 GM TAB PO SCH ×3 (05:20→20:18)
[2020-09-06] MEDS: NS 1,000 ML IV SCH (05:20)
[2020-09-06] MEDS: ACETAMINOPHEN TAB 650MG DOSE (2X325MG) PO PRN ×2 (05:20→20:22)
[2020-09-06 06:00] VITALS: BP 146/78
[2020-09-06 06:54] LABS: HEMATOCRIT 36.9 % (36.0-47.0); MEAN CORPUSCULAR HEMOGLOBIN 30.4 pg (27.0-33.0); MEAN CORPUSCULAR HGB CONC 32.5 g/dl (32.0-36.5); MEAN CORPUSCULAR VOLUME 93.4 fl (80.0-96.0); PLATELET COUNT, AUTOMATED 130 10^3/uL (150-450); RED BLOOD COUNT 3.95 10^6/uL (4.00-5.40); WHITE BLOOD COUNT 6.9 10^3/uL (4.0-10.0)
[2020-09-06 07:16] LABS: ALBUMIN 3.1 GM/DL (3.2-5.2); ALT/SGPT 25 U/L (12-78); BILIRUBIN,TOTAL 0.7 MG/DL (0.2-1.0); BLOOD UREA NITROGEN 13 MG/DL (7-18); CALCIUM LEVEL 8.8 MG/DL (8.8-10.2); CARBON DIOXIDE LEVEL 25 MEQ/L (21-32); CHLORIDE LEVEL 109 MEQ/L (98-107); CREATININE FOR GFR 0.82 MG/DL (0.55-1.30); GLOMERULAR FILTRATION RATE > 60.0 (>45); GLUCOSE, FASTING 99 MG/DL (70-100); MAGNESIUM LEVEL 1.9 MG/DL (1.8-2.4); POTASSIUM SERUM 3.2 MEQ/L (3.5-5.1); SODIUM LEVEL 141 MEQ/L (136-145); TOTAL PROTEIN 6.6 GM/DL (6.4-8.2)
[2020-09-06] MEDS ORDERED: KCL 20MEQ IN 0.45NS 1000ML 1,000 ML IV SCH (07:45)
[2020-09-06] MEDS: PANTOPRAZOLE 40MG VIAL (C9113 PER 1) IV SCH ×2 (08:07→20:19)
[2020-09-06] MEDS: DOCUSATE SODIUM 100MG CAPSULE PO SCH ×3 (08:07→20:18)
[2020-09-06] MEDS: KCL 10MEQ/100ML SWI (KRUN) 10 MEQ in IV 1 EA IV SCH ×4 (08:08→12:41)
[2020-09-06] MEDS: ENOXAPARIN 40MG/0.4ML SYRINGE (J1650 PER 10MG) SC SCH (08:08)
[2020-09-06] MEDS: atenoloL 50 MG TAB PO SCH ×2 (08:10→20:19)
--- NOTE | 2020-09-06 09:09 | IPN ---
PROGRESS NOTE DATE: 09/06/2020 SUBJECTIVE: Kyara Singh was admitted with trouble swallowing. She has upper anterior throat discomfort when she tries to swallow. She had upper abdominal chest discomfort yesterday which has resolved but she indicates the majority of her problems at this point are felt in her neck and throat area. She has a history of right sided breast cancer metastatic to sacral spine and liver on active chemotherapy most recently a week ago, 08/30/2020. History of COPD, hypertension, gastritis and probably HIV as she is on an HIV medication, Triumeq. She is hypokalemic today which we are addressing. She is hard of hearing and there is some language barriers as well that make it difficult to communicate satisfactorily. PHYSICAL EXAMINATION: VITAL SIGNS: Blood pressure 136/77, pulse 89, respiratory rate 18, 95% O2 saturation, 100.3 degrees. GENERAL APPEARANCE: She looks mildly chronically ill. HEENT: Dentition is in poor repair. Upper airway as best as I could visualize did not show any thrush or ulceration. Mucous membranes look moist. Tender to palpate in the submandibular area bilaterally. LUNGS: Clear. HEART: Regular rate and rhythm. ABDOMEN: Soft, tender in the epigastric area. EXTREMITIES: No peripheral edema. LABORATORY DATA: Labs: White count 6.9, hemoglobin is 12, platelets 130, sodium 141, potassium is 3.2, BUN 13, creatinine is 0.8, glucose is 99. CD4 count is pending. HIV tests are pending. IMPRESSION AND PLAN: 1. Dysphagia with dehydration and hypokalemia. I have ordered IV potassium, I have changed her IV fluids to 1/2 Normal Saline with 20 mEq of potassium chloride per liter at 100 ml/hr. I have put a consult in for ENT to do an upper airway evaluation, she does have HIV, there could be ulceration or candidiasis that I cannot visualize. Continue Carafate and IV Protonix. 2. Metastatic breast cancer. She has an oncologist at [facility]. 3. Hypertension, blood pressure is well-controlled. 4. COPD. It is stable. She is not on a steroid inhaler that I am aware of. 5. HIV, on Triumeq. She has an HIV test pending.
[2020-09-06 09:57] LABS: ATYPICAL LYMPH 8 % (0-5); BLAST CELLS 1 % (0-0); EOSINOPHILS 1 % (0-3); LYMPHOCYTES 23 % (16-44); METAMYELOCYTES 6 % (0-0); MONOCYTES 14 % (0-5); MYELOCYTES 7 % (0-0); NEUTROPHILS 36 % (28-66); PROMYELOCYTES 3 % (0-0)
[2020-09-06 09:58] LABS: GIANT PLATELETS 1+; PLATELET ESTIMATE DECREASED (NORMAL); TOXIC GRANULATION 2+
[2020-09-06] MEDS ORDERED: ISOVUE-370 76% 100ML VIAL As Ordered ONE (10:09)
--- NOTE | 2020-09-06 11:00 | REPVR ---
PROCEDURE INFORMATION: Exam: CT Neck With Contrast Exam date and time: 09/06/2020 10:20 AM Age: 60 years old Clinical indication: Neck pain and painful swallowing; Additional info: Neck pain with swallowing TECHNIQUE: Imaging protocol: Computed tomography images of the neck with intravenous contrast. Radiation optimization: All CT scans at this facility use at least one of these dose optimization techniques: automated exposure control; mA and/or kV adjustment per patient size (includes targeted exams where dose is matched to clinical indication); or iterative reconstruction. Contrast material: ISOVUE 370; Contrast volume: 75 ml; Contrast route: INTRAVENOUS (IV); COMPARISON: CT Spine,cervical w/o contrast 06/06/2020 10:22 PM FINDINGS: Nasopharynx: Unremarkable. Oropharynx: Unremarkable. No significant tonsillar enlargement. Hypopharynx: Unremarkable. Larynx: Unremarkable. Normal epiglottis. Retropharyngeal space: Normal. No retropharyngeal abscess. Submandibular/Parotid glands: Normal. Glands are normal in size. Thyroid: Normal. No enlarged or calcified nodules. Lymph nodes: Unremarkable. No significant cervical lymphadenopathy. Trachea: Visualized trachea is unremarkable. Lungs: A small 3.3 mm solid intrapulmonary nodule is present in the anterior left lung apex on image 82 of series 201. Posterior to the small nodule is a second partially visible nodule measuring 6.7 x 4.3 mm in size. Bones/joints: Unremarkable. No acute fracture. Soft tissues: Unremarkable. No significant soft tissue swelling. IMPRESSION: 1. No acute findings identified to explain the patient's dysphagia and neck pain. 2. A small 3.3 mm solid intrapulmonary nodule is present in the anterior left lung apex on image 82 of series 201. Posterior to the small nodule is a second partially visible nodule measuring 6.7 x 4.3 mm in size. For patients at low risk for lung cancer (minimal or absent history of smoking and of other known risk factors), recommend CT Chest at 3-6 months, then consider CT Chest at 18-24 months. For patients at high risk (history of smoking or of other known risk factors), recommend CT Chest at 3-6 months, then CT Chest at 18-24 months. Reference: Morro Crowell, et al. Guidelines for Management of Incidental Pulmonary Nodules Detected on CT Images: From the Fleischner Society 2017. Radiology. 2017;284(1):228-243. Electronically signed by: Ariel Delgado On 09/06/2020 11:00:50 AM
--- NOTE | 2020-09-06 11:45 | IPN ---
PROGRESS NOTE DATE: 09/06/[address] Cristino Valverde, who is actually construction area manager for ENT (call schedule is incorrect). I discussed the case. He would like a CT scan with an echo contrast, which I ordered and then, he will see the patient to evaluate pain in the anterior neck and pharyngeal area upon swallowing.
[2020-09-06] MEDS: KCL 20MEQ IN 0.45NS 1000ML 1,000 ML IV SCH ×2 (12:41→23:57)
[2020-09-06 14:00] VITALS: BP 136/79
[2020-09-06 20:19] VITALS: BP 137/80
[2020-09-06 22:00] VITALS: BP 137/80
[2020-09-06] MEDS ORDERED: LORATADINE 10 MG TAB PO ONE (23:15)
[2020-09-07] MEDS: SUCRALFATE 1 GM TAB PO SCH (05:17)
[2020-09-07 06:11] LABS: HEMATOCRIT 37.6 % (36.0-47.0); HEMOGLOBIN 12.3 g/dl (12.0-15.5); MEAN CORPUSCULAR HEMOGLOBIN 30.8 pg (27.0-33.0); MEAN CORPUSCULAR HGB CONC 32.7 g/dl (32.0-36.5); MEAN CORPUSCULAR VOLUME 94.2 fl (80.0-96.0); PLATELET COUNT, AUTOMATED 150 10^3/uL (150-450); RED BLOOD COUNT 3.99 10^6/uL (4.00-5.40)
[2020-09-07 06:25] LABS: WHITE BLOOD COUNT 24.4 10^3/uL (4.0-10.0)
[2020-09-07 06:47] LABS: ALBUMIN 3.2 GM/DL (3.2-5.2); ALT/SGPT 24 U/L (12-78); BILIRUBIN,TOTAL 0.3 MG/DL (0.2-1.0); BLOOD UREA NITROGEN 10 MG/DL (7-18); CALCIUM LEVEL 8.8 MG/DL (8.8-10.2); CARBON DIOXIDE LEVEL 19 MEQ/L (21-32); CHLORIDE LEVEL 108 MEQ/L (98-107); CREATININE FOR GFR 0.88 MG/DL (0.55-1.30); GLOMERULAR FILTRATION RATE > 60.0 (>45); GLUCOSE, FASTING 79 MG/DL (70-100); MAGNESIUM LEVEL 1.7 MG/DL (1.8-2.4); POTASSIUM SERUM 3.5 MEQ/L (3.5-5.1); SODIUM LEVEL 139 MEQ/L (136-145); TOTAL PROTEIN 6.4 GM/DL (6.4-8.2)
[2020-09-07 07:58] LABS: ATYPICAL LYMPH 7 % (0-5); LYMPHOCYTES 5 % (16-44); METAMYELOCYTES 5 % (0-0); MONOCYTES 10 % (0-5); MYELOCYTES 3 % (0-0); NEUTROPHILS 65 % (28-66); PROMYELOCYTES 1 % (0-0)
[2020-09-07 08:00] LABS: PLATELET ESTIMATE NORMAL (NORMAL); TOXIC GRANULATION 2+
[2020-09-07] MEDS: atenoloL 50 MG TAB PO SCH (08:07)
[2020-09-07] MEDS: DOCUSATE SODIUM 100MG CAPSULE PO SCH (08:07)
[2020-09-07] MEDS: ENOXAPARIN 40MG/0.4ML SYRINGE (J1650 PER 10MG) SC SCH (08:07)
[2020-09-07] MEDS: PANTOPRAZOLE 40MG VIAL (C9113 PER 1) IV SCH (08:08)
[2020-09-07] MEDS ORDERED: cefTRIAXone SOD 1 GM in D5W MINI-BAG PLUS 50 ML IV SCH (09:00)
[2020-09-07 12:07] LABS: % CD4+ LYMPHS 22.6 % (30.8-58.5); ABSOLUTE CD4 HELPER 588 /uL (359-1519); BASOPHILS 0 % (Not Estab.); COMMENTS FOR T-CELL CD4 Note: (.); EOSINOPHILS 0 % (Not Estab.); HCT 36.6 % (34.0-46.6); HGB 12.1 g/dL (11.1-15.9); LYMPHOCYTES 38 % (Not Estab.); LYMPHOCYTES ABSOLUTE 2.6 x10E3/uL (0.7-3.1); MCH 30.6 pg (26.6-33.0); MCHC 33.1 g/dL (31.5-35.7); MCV 92 fL (79-97); MONOCYTES 17 % (Not Estab.); MONOCYTES ABSOLUTE 1.2 x10E3/uL (0.1-0.9); NEUTROPHILS 31 % (Not Estab.); NEUTROPHILS ABSOLUTE 2.4 x10E3/uL (1.4-7.0); PLT 132 x10E3/uL (150-450); RBC 3.96 x10E6/uL (3.77-5.28); RDW 12.8 % (11.7-15.4); WBC 6.9 x10E3/uL (3.4-10.8)
--- NOTE | 2020-09-07 18:32 | DS.PDOC ---
Discharge Summary General Date of Admission Sep 05, 2020 at 16:08 Date of Discharge 09/07/20 Attending Physician: Jayshree Benavides MD Discharge Summary DISCHARGE SUMMARY- PATIENT LEFT AMA HISTORY OF PRESENT ILLNESS: 60 yo female with a history of right-sided metastatic breast cancer diagnosed in 2016, status post modified radical mastectomy and chemotherapy with metastatic disease to sacral spine and liver. Patient also has a history of COPD, hypertension and GERD. He last received chemotherapy in 08/30/2020. Since that she has had nausea, and retching associated with chest upper abdominal discomfort with radiation to the back. Patient has had reduced by mouth intake. Last eaten or drank anything was approximately 24 hours ago. On arrival, patient appears dehydrated with a lactic acid of 2.8. She was given 1 L normal saline. Her pain seems to have improved with a GI cocktail. Patient will be admitted to hospital service for suspected esophagitis related to chemotherapy. She is hard of hearing and some was subsequently history was obtained from her daughter. Patient is full code according to her daughter. She follows with a [facility] with the oncologist, Dr. Mclean. HOSPITAL COURSE: Patient continued to complain of anterior throat discomfort when she tries to swallow. She had upper abdominal chest discomfort this admission as well, which had resolved but she indicates the majority of her problems at this point are felt in her neck and throat area. ENT was consulted and discussed case with Dr. Roque, coverning physician. CT of the head and neck was requested to be done by ENT, showing 1. No acute findings identified to explain the patient's dy sphagia and neck pain. 2. A small 3.3 mm solid intrapulmonary nodule is present in the anterior left lung apex on image 82 of series 201. Posterior to the small nodule is a second partially visible nodule measuring 6.7 x 4.3 mm in size. ENT did come and see patient on 09/06/20; however, note is not yet available by AM on 09/07/20. I got a call before my AM meeting that patient was going to leave AMA if I did not come immediately to bedside. I explained I have a mandatory rounds meeting for the hospital and I could be available to see in 15 mins. Patient refused to stay and by the time I went to round on her, she had left AMA. No physical exam was done, no review of her care was discussed with her prior to her leaving. PAST MEDICAL HISTORY: right-sided breast cancer 2016 S/P modified radical mastectomy Metastatic cancer to sacral spine and liver COPD Hypertension Gastritis takes Protonix GERD PAST SURGICAL HISTORY: 2 C-sections SOCIAL HISTORY: recreational marijuana occcasional glass of wine Former smoker ~20 pack years FAMILY HISTORY: hx of breast ca in sister Brother had lung Mother had CVA ALLERGIES: Please see below. DISCHARGE MEDICATIONS: Please see below. PHYSICAL EXAMINATION: UNABLE TO BE PERFORMED DUE TO PATIENT LEAVING AMA LABORATORY DATA: please see below DIAGNOSES AT TIME OF LEAVING AMA: Dysphagia with dehydration and hypokalemia Metastatic breast cancer Hypertension, blood pressure is well-controlled. COPD HIV TIME SPENT ON DISCHARGE: 35 minutes. Vital Signs/I&Os Vital Signs Date Time Temp Pulse Resp B/P (MAP) Pulse Ox O2 Delivery O2 Flow Rate FiO2 09/07/20 06:00 98.0 80 18 92 Room Air 09/06/20 22:00 137/80 (99) I&O- Last 24 Hours up to 6 AM 09/07/20 06:00 Intake Total 4180 ml Output Total 14 ml Balance 4166 ml Laboratory Data Labs 24H Laboratory Tests 2 09/07/20 05:54: Immature Granulocyte % (Auto) , Neutrophils (%) (Auto) , Nucleated Red Blood Cells % (auto) 0.1H, Neutrophils 65, Band Neutrophils 4, Lymphocytes (Manual) 5L, Monocytes (Manual) 10H, Metamyelocytes 5H, Myelocytes 3H, Promyelocytes 1H, Atypical Lymphocytes 7H, Red Blood Cell Morphology NORMAL, Toxic Granulation 2+, Platelet Estimate NORMAL, Anion Gap 12, Glomerular Filtration Rate > 60.0, Calcium Level 8.8, Magnesium Level 1.7L, Total Bilirubin 0.3#, Aspartate Amino Transf (AST/SGOT) 25, Alanine Aminotransferase (ALT/SGPT) 24, Alkaline Phosphatase 199H, Total Protein 6.4, Albumin 3.2, Albumin/Globulin Ratio 1.0L CBC/BMP Laboratory Tests 09/07/20 05:54 Microbiology Microbiology 09/05/20 Urine Culture, Received Pending 09/05/20 Blood Culture - Preliminary, Resulted No Growth after 48 hours. All Specime... 09/05/20 Respiratory Virus Panel (PCR) ([facility]) - Final, Complete 09/05/20 Blood Culture - Preliminary, Resulted No Growth after 48 hours. All Specime... Discharge Medications Scheduled Abacavir/Dolutegravir/Lamivudi (Triumeq 600-50-300 mg Tablet) 1 Each Tablet, 1 TAB PO DAILY, (Reported) Atenolol (Atenolol) 100 Mg Tablet, 100 MG PO BID, (Reported) Dexamethasone (Dexamethasone) 4 Mg Tablet, 2 TAB PO BID Take 2 tablets by mouth twice a day on the day before, the day of and the day after chemotherapy. Docusate Sodium (Dok) 100 Mg Tablet, 100 MG PO DAILY, (Reported) Ondansetron HCl (Ondansetron HCl) 8 Mg Tablet, 1 TAB PO Q8H for nausea/vomiting Scheduled PRN Albuterol Sulfate (Proair Hfa) 8.5 Gm Hfa.aer.ad, 2 PUFF INH QID PRN for SHORTNESS OF BREATH, (Reported) Oxycodone HCl/Acetaminophen (Oxycodone-Acetaminophen 5-325) 1 Each Tablet, 1 TAB PO BIDP PRN for pain Allergies Coded Allergies: No Known Allergies (Unverified , 03/04/20) Jayshree Benavides MD Sep 07, 2020 18:32
== END 2020-09-07 09:20 | disposition left against medical advice (07) ==
LOC: M ED 16:07 → M ED INP 16:08 → M MS5PR 23:06
PROVIDERS: ADMIT Family Medicine; ATTEND Internal Medicine
DX: R13.10 Dysphagia, unspecified (principal); Z53.21 Procedure and treatment not carried out due to patient leaving prior to being seen by health care provider; E86.0 Dehydration; E87.6 Hypokalemia; I10 Essential (primary) hypertension; C50.911 Malignant neoplasm of unspecified site of right female breast; C78.7 Secondary malignant neoplasm of liver and intrahepatic bile duct; C79.51 Secondary malignant neoplasm of bone; Z79.899 Other long term (current) drug therapy; Z87.891 Personal history of nicotine dependence; Z90.11 Acquired absence of right breast and nipple; Z92.21 Personal history of antineoplastic chemotherapy
CPT/HCPCS: 36415; 70491; 71045; 80048; 80053; 80076; 81001; 82330; 82550; 82553; 83605; 83690; 83735; 85025; 85610; 85730; 86361; 86850; 86900; 86901; 87040; 87088; 87186; 87798; 93005; 93041; 96361; 96374; 99285; C9113; J1650; J2405; Q9967